=== PATIENT | female | born 1950 | race Caucasian/White ===

== ENCOUNTER 2018-11-21 08:03 | Outpatient (CLI) | payer MEDICARE, MEDICAID, SELFPAY ==
[2018-11-21 08:34] LABS: HGB 13.5 g/dL (12.0-15.5); Mean Corp. HGB Concentration 31.4 g/dL (32.0-36.0); Mean Corpuscular Hemoglobin 28.7 pg (27.0-33.0); Mean Corpuscular Volume 91.5 fL (80-95); Mean Platelet Volume 10.1 fL (8.0-11.0); Platelet Count 279 x1000/uL (130-400); RBC Distribution Width 15.4 % (11.7-14.6); White Blood Cell Count 8.06 k/cumm (4.4-10.8)
[2018-11-21 08:40] LABS: Hemoglobin A1C 6.6 % (4.5-6.2)
[2018-11-21 09:40] LABS: ALT 28 U/L (12-78); AST 21 U/L (15-37); Albumin 3.4 g/dL (3.4-5.0); Alkaline Phosphatase 118 U/L (46-116); BUN 20 mg/dL (7-18); Bilirubin, Total 0.4 mg/dL (0.2-1.0); CREATININE 0.75 mg/dL (0.55-1.02); Calcium 9.3 mg/dL (8.5-10.1); Chloride 105 mmol/L (98-107); Cholesterol 215 mg/dL (50-200); Glucose 106 mg/dL (70-100); HDL Cholesterol 43 mg/dL (40-60); LDL CHOLESTEROL 146 mg/dL (<100); Potassium 4.1 mmol/L (3.5-5.1); Sodium 143 mmol/L (136-145); Total Protein 7.5 g/dL (6.4-8.2); Triglyceride 119 mg/dL (30-150)
== END 2018-11-21 08:23 ==
PROVIDERS: PCP Nurse Practitioner; Visit Provider Nurse Practitioner
DX: E78.5 Hyperlipidemia, unspecified (principal); R73.01 Impaired fasting glucose; F43.20 Adjustment disorder, unspecified
CPT/HCPCS: 36415; 80053; 80061; 83721; 85027; 83036

== ENCOUNTER 2018-11-30 18:47 | Emergency (ER) | payer MEDICARE, MEDICAID, SELFPAY ==
[2018-11-30 18:52] VITALS: BP 157/70; PULSE 88; RESP 16; TEMP 36.1; O2SAT 92
--- NOTE | 2018-11-30 19:16 | ED.GENADUL_ITS ---
Discharge Plan Disposition Patient Disposition: HOME Condition: Stable Discharge Details Chief Complaint: EarProblem Clinical Impression: Otitis media, Otitis externa Primary Care Provider: Faith Fischer ED Provider: Eusebia Rees Home Meds and New Rx's Prescriptions: New Cipro HC 0.2-1 % drops,suspension 3 drp OT Q12H 7 Days Qty: 20 RF: 0 clotrimazole 1 % solution 1 applic TP BID 7 Days Qty: 10 RF: 0 azithromycin [Zithromax] 250 mg tablet 250 mg PO DAILY 3 Days Qty: 3 RF: 0 Continued fluticasone 50 mcg/actuation spray,suspension 2 spray RAYRAY DAILY Qty: 16 RF: 12 diazepam [Valium] 5 MG tablet 2.5 mg PO BID RF: 0 aspirin [Aspir-81] 81 MG tablet,delayed release (DR/EC) 81 mg PO DAILY RF: 0 ibuprofen 200 MG tablet 400 mg PO Q6H PRN Qty: 30 RF: 0 risperidone [Risperdal] 1 MG tablet 1 mg PO BID RF: 0 cholecalciferol (vitamin D3) 1,000 UNIT tablet 1,000 unit PO DAILY Qty: 90 RF: 4 triamcinolone acetonide 15 GM cream 1 jason Topical BID PRNQty: 1 RF: 2 mirtazapine 30 MG tablet 30 mg PO HS RF: 0 sertraline 50 MG tablet 50 mg PO DAILY RF: 0 Atorvastatin Calcium 10 MG tablet 10 mg PO DAILY Qty: 90 RF: 3 nitroglycerin [Nitro-Dur] 1 EACH patch 24 hour 1 patch Transdermal DAILY Qty: 90 RF: 3 Discharge Instructions Instructions: Otitis Externa (ED), Otitis Media (ED) Additional Instructions: Start using the Clotrimazole solution to both ears as directed. Take the Zithromax until finished. If you have no relief or worsening of symptoms, start using the Cipro HC otic drops. Call your primary care doctor tomorrow to schedule follow-up appointment for reevaluation. Return to the emergency department any worsening or new concerning symptoms. Discharge Data Discharge Date/Time-TO BE ENTERED AT DEPARTURE: 11/30/18 19:30 Discharge Physician: Eusebia Rees Medical Decision Making 68-year-old female who presents with itchy rash to bilateral ears x 2 days, and left ear pain x 1 day. Pt has been using triamcinolone for the rash with improvement on the right, but no improvement on the left. Afebrile. Patient appears nontoxic. The rash noted to the bilateral external ears and canals does appear to be scaling with erosions which could be a fungal infection. The right ear canal does not appear to have bacterial infection. The left ear canal pain may be from fungal infection or early bacterial infection. The fluid and edema noted deep within the left ear may be from ear drops or may be an effusion. As patient has worsening pain, will treat for otitis media with Zithromax. Will give a prescription for clotrimazole solution to use as antifungal treatment for the otitis externa. Will also give a prescription for Cipro HC otic drops if no improvement with the antifungal solution. Instructed to call the primary care doctor tomorrow to schedule follow-up appointment for reevaluation and to return at any time with any concerns. HPI General Mode of arrival: ambulatory . Date/Time Provider Initiated Documentation: 11/30/18 18:48 . Limitations to Documentation: no limitations . Information obtained by: patient . HPI Narrative: Pt is a 68-year-old female who presents with itchy rash to b/l ears x 2 days, now with pain in L ear since yesterday. Patient's caregiver states that she has been seen by her primary care doctor before for similar rash and was diagnosed with a fungal ear infection and given triamcinolone in 2017. Caregiver states she has been using the triamcinolone for the past 2 days and notes some improvement in the right ear, but worsening of symptoms in the left ear. She also used analgesic ear drops in the left ear today. She states the left ear canal appears more swollen and red and now with worsening pain within the left ear. Denies fever, sore throat, difficulty breathing. Related Data Home Medications Medication Instructions Recorded Confirmed aspirin [Aspir-81] 81 mg PO DAILY tab 02/28/15 11/30/18 diazepam [Valium] 2.5 mg PO BID tab-cap 02/28/15 11/30/18 ibuprofen 400 mg PO Q6H PRN #30 tab-cap 04/28/15 11/30/18 cholecalciferol (vitamin D3) 1,000 unit PO DAILY #90 tab-cap 09/08/15 11/30/18 risperidone [Risperdal] 1 mg PO BID 09/08/15 11/30/18 triamcinolone acetonide 1 jason TOPICAL BID PRN #1 script 07/05/16 11/30/18 mirtazapine 30 mg PO HS tab-cap 03/27/17 11/30/18 sertraline 50 mg PO DAILY tab-cap 09/24/17 11/30/18 nitroglycerin [Nitro-Dur] 1 patch TRANSDERMAL DAILY #90 patch 03/25/18 11/30/18 fluticasone 50 mcg/actuation nasal 2 spray RAYRAY DAILY #16 gm 08/14/18 11/30/18 spray,suspension azithromycin [Zithromax] 250 mg PO DAILY 3 Days #3 tab 11/30/18 ciprofloxacin-hydrocortisone 3 drp OT Q12H 7 Days #20 ml 11/30/18 [Cipro HC] clotrimazole 1 applic TP BID 7 Days #10 ml 11/30/18 Previous Rx's Medication Instructions Recorded nitroglycerin [Nitro-Dur] 1 patch TRANSDERMAL DAILY #90 patch 03/25/18 fluticasone 50 mcg/actuation nasal 2 spray RAYRAY DAILY #16 gm 08/14/18 spray,suspension azithromycin [Zithromax] 250 mg PO DAILY 3 Days #3 tab 11/30/18 ciprofloxacin-hydrocortisone 3 drp OT Q12H 7 Days #20 ml 11/30/18 [Cipro HC] clotrimazole 1 applic TP BID 7 Days #10 ml 11/30/18 Allergies Allergy/AdvReac Type Severity Reaction Status Date / Time caffeine Allergy Unknown unknown Verified 11/30/18 18:57 Iodinated Contrast- Oral and Allergy Unknown unknown Verified 11/30/18 18:57 IV Dye morphine Allergy Unknown unknown Verified 11/30/18 18:57 Penicillins Allergy Unknown unknown Verified 11/30/18 18:57 pravastatin AdvReac Mild diarrhea Verified 11/30/18 18:57 General Stated Complaint: EarProblem PATEL: 5 Review of Systems Review of Systems All systems reviewed & are unremarkable except as noted in HPI and below Constitutional Reports as per HPI, Denies chills and Denies fever(s) Eyes Denies blurry vision ENT Denies dizziness, Denies ear discharge, Reports otalgia, Denies nasal congestion, Denies nasal discharge, Denies sore throat and Denies throat swelling Cardiovascular Denies chest pain and Denies dyspnea Respiratory Denies dyspnea Gastrointestinal Denies abdominal pain, Denies diarrhea and Denies vomiting Genitourinary Denies hematuria and Denies dysuria Musculoskeletal Denies back pain and Denies numbness Integumentary/Breasts Denies lesions and Denies rash Neurologic Denies dizziness and Denies numbness Allergic/Immunologic Denies throat swelling [facility] Medical History Hyperlipemia (Acute) PTSD (post-traumatic stress disorder) (Acute) Anxiety (Chronic) Migraine (Chronic) Surgical History History of hysterectomy (Chronic) Appendectomy Family History Mother Heart disease Father Heart disease Sister No problems noted. Social History Smoking/Tobacco Use Status: Never alcohol intake: never substance use type: does not use Exam Const General: cooperative, healthy appearing and no acute distress HENMT Head: normal to inspection Ears: hearing grossly normal bilaterally, mastoids normal bilaterally not edematous, nontender and no erythema, EAC abnormal (scalling, erosions, mild edema/erythema, worse on L side), external ear abnormal other (L ear: pain pulling on auricle/palpation of tragus), no periauricular adenopathy and TM abnormal wth effusion serous on the left and with fluid behind the TM on the left General nose exam: external nose normal Face and sinus: normal facial exam Mouth: oral mucosae normal Throat: posterior oropharynx normal Eyes General: appearance normal, both eyes and all related structures Neck Neck: normal visual inspection and no lymphadenopathy Resp Effort & Inspection: normal respiratory effort and able to speak in complete sentences Cardio Rate: regular rate Skin General skin exam: no rashes or lesions noted Neuro General: alert, awake and oriented x3 Motor: muscle tone normal throughout Extrem General: normal to inspection and full ROM Psych Appearance: grossly normal Affect: normal affect Course Vital Signs Temperature 97.0 F L 11/30/18 18:52 Pulse 88 11/30/18 18:52 Respiratory Rate 16 11/30/18 18:52 Blood Pressure 157/70 H 11/30/18 18:52 Pulse Oximetry 92 L 11/30/18 18:52 Temperature 97.0 F L 11/30/18 18:52 Temperature Source Skin 11/30/18 18:52 Pulse 88 11/30/18 18:52 Respiratory Rate 16 11/30/18 18:52 Respiratory Effort Non-Labored 11/30/18 18:52 Blood Pressure 157/70 H 11/30/18 18:52 Pulse Oximetry 92 L 11/30/18 18:52 Pain Level 10 11/30/18 18:59
[2018-11-30] MEDS: Azithromycin 250 MG TAB 500 MG PO (19:17)
[2018-11-30] MEDS: Azithromycin 250 MG TAB PO (19:17)
== END 2018-11-30 19:30 | disposition home or self-care (01) ==
PROVIDERS: Emergency Provider Physician Assistant; PCP Nurse Practitioner
DX: H66.92 Otitis media, unspecified, left ear (principal); H60.392 Other infective otitis externa, left ear; H60.501 Unspecified acute noninfective otitis externa, right ear
CPT/HCPCS: 99283

== ENCOUNTER 2019-02-12 11:49 | Outpatient (REF) | payer MEDICARE, MEDICAID, SELFPAY ==
[2019-02-12 19:18] LABS: COMMENT (LAB VIEW ONLY) 89.55 mg/dL; Microalb ug/mg Crea 12.2 ug/mg Cr
== END 2019-02-12 12:09 ==
LOC: LBN 11:49
PROVIDERS: PCP Nurse Practitioner; Visit Provider Nurse Practitioner
DX: E11.9 Type 2 diabetes mellitus without complications (principal); R82.90 Unspecified abnormal findings in urine
CPT/HCPCS: 87077; 82043; 82570; 87086; 87186

== ENCOUNTER 2019-03-16 14:19 | Outpatient (CLI) | payer MEDICARE, MEDICAID, SELFPAY ==
[2019-03-16 16:09] LABS: Anion Gap 11.1 mmol/L (3-11); BUN 23 mg/dL (7-18); CO2 28.9 mmol/L (21.0-32.0); CREATININE 0.88 mg/dL (0.55-1.02); Calcium 9.9 mg/dL (8.5-10.1); Chloride 103 mmol/L (98-107); Glucose 112 mg/dL (70-100); Potassium 4.2 mmol/L (3.5-5.1); Sodium 143 mmol/L (136-145)
== END 2019-03-16 14:39 ==
PROVIDERS: PCP Nurse Practitioner; Visit Provider Nurse Practitioner
DX: R00.0 Tachycardia, unspecified (principal); K21.9 Gastro-esophageal reflux disease without esophagitis
CPT/HCPCS: 36415; 80048; 84443

== ENCOUNTER 2019-07-27 08:11 | Outpatient (CLI) | payer MEDICARE, MEDICAID, SELFPAY ==
[2019-07-27 08:34] LABS: HCT 41.1 % (36.0-46.0); HGB 12.9 g/dL (12.0-15.5); Mean Corp. HGB Concentration 31.4 g/dL (32.0-36.0); Mean Corpuscular Hemoglobin 28.9 pg (27.0-33.0); Mean Corpuscular Volume 91.9 fL (80-95); Mean Platelet Volume 9.7 fL (8.0-11.0); Platelet Count 332 x1000/uL (130-400); RBC 4.47 m/cumm (4.00-5.20); RBC Distribution Width 15.1 % (11.7-14.6); White Blood Cell Count 8.18 k/cumm (4.4-10.8)
[2019-07-27 08:42] LABS: Hemoglobin A1C 6.6 % (4.5-6.2)
[2019-07-27 09:34] LABS: ALT 47 U/L (14-59); AST 18 U/L (15-37); Albumin 3.5 g/dL (3.4-5.0); Alkaline Phosphatase 119 U/L (46-116); Anion Gap 10.6 mmol/L (3-11); BUN 22 mg/dL (7-18); Bilirubin, Total 0.3 mg/dL (0.2-1.0); CO2 28.4 mmol/L (21.0-32.0); CREATININE 0.83 mg/dL (0.55-1.02); Calcium 9.2 mg/dL (8.5-10.1); Calculated LDL 138 mg/dL; Chloride 104 mmol/L (98-107); Cholesterol 203 mg/dL (50-200); Glucose 110 mg/dL (70-100); HDL Cholesterol 43 mg/dL (40-60); Potassium 4.5 mmol/L (3.5-5.1); Sodium 143 mmol/L (136-145); Total Protein 7.6 g/dL (6.4-8.2); Triglyceride 113 mg/dL (30-150)
== END 2019-07-27 08:31 ==
PROVIDERS: PCP Nurse Practitioner; Visit Provider Nurse Practitioner
DX: E11.9 Type 2 diabetes mellitus without complications (principal); E78.5 Hyperlipidemia, unspecified
CPT/HCPCS: 36415; 80053; 80061; 85027; 83036

== ENCOUNTER 2019-12-22 00:51 | Outpatient (CLI) | payer MEDICARE, MEDICAID, SELFPAY ==
--- NOTE | 2019-12-22 08:57 | DI.RAD_ITS ---
EXAM: XR KNEE LT 3V AP,LAT,HARPER INDICATION: left knee pain, M25.562. COMPARISON: No exams were available for comparison TECHNIQUE: 2D digital imaging was performed. FINDINGS: The joint spaces are well maintained. No joint effusion is seen. There is minimal periarticular spu rring. IMPRESSION: Minimal degenerative changes.
== END 2019-12-22 01:11 ==
PROVIDERS: PCP Nurse Practitioner; Visit Provider Nurse Practitioner
DX: M25.562 Pain in left knee (principal); M17.12 Unilateral primary osteoarthritis, left knee
CPT/HCPCS: 73562

== ENCOUNTER → 2020-01-20 09:38 | Outpatient (BNVA) | payer MEDICARE, MEDICAID, SELFPAY | PROVIDERS: PCP Nurse Practitioner; Referring Provider Nurse Practitioner; Visit Provider Orthopaedic Surgery | DX: M23.92 Unspecified internal derangement of left knee (principal); M25.562 Pain in left knee | CPT/HCPCS: 99211; 99213 ==

== ENCOUNTER 2020-05-25 01:21 | Outpatient (CLI) | payer MEDICARE, MEDICAID, SELFPAY ==
[2020-05-25 09:05] LABS: ALT 24 U/L (14-59); AST 25 U/L (15-37); Albumin 3.9 g/dL (3.4-5.0); Alkaline Phosphatase 107 U/L (46-116); Anion Gap 9.2 mmol/L (3-11); BUN 26 mg/dL (7-18); Bilirubin, Total 0.3 mg/dL (0.2-1.0); CO2 26.8 mmol/L (21.0-32.0); Calcium 9.5 mg/dL (8.5-10.1); Calculated LDL 132 mg/dL (<100); Chloride 107 mmol/L (98-107); Cholesterol 198 mg/dL (<200); Glucose 108 mg/dL (74-106); HDL Cholesterol 44 mg/dL (40-60); Potassium 4.3 mmol/L (3.5-5.1); Sodium 143 mmol/L (136-145); Total Protein 7.5 g/dL (6.4-8.2); Triglyceride 112 mg/dL (<150)
== END 2020-05-25 01:41 ==
PROVIDERS: PCP Nurse Practitioner; Visit Provider Nurse Practitioner
DX: E11.9 Type 2 diabetes mellitus without complications (principal); E78.5 Hyperlipidemia, unspecified
CPT/HCPCS: 36415; 80053; 80061

== ENCOUNTER 2020-12-05 10:14 | Outpatient (REF) | payer MEDICARE, MEDICAID, SELFPAY ==
[2020-12-05 14:50] LABS: COMMENT (LAB VIEW ONLY) 107.47 mg/dL; Microalb ug/mg Crea 18.9 ug/mg Cr
== END 2020-12-05 10:34 ==
LOC: LBN 10:14
PROVIDERS: PCP Nurse Practitioner; Visit Provider Nurse Practitioner
DX: E11.9 Type 2 diabetes mellitus without complications (principal); R82.90 Unspecified abnormal findings in urine
CPT/HCPCS: 87077; 82043; 82570; 87086; 87186

== ENCOUNTER 2021-02-17 17:42 | Inpatient (IN) | payer MEDICARE, MEDICAID, SELFPAY ==
[2021-02-17] VITALS (161 sets, daily range): BP systolic 97–132; BP diastolic 44–70; PULSE 78–96; RESP 14–30; TEMP 36.5; O2SAT 87–98
--- NOTE | 2021-02-17 17:30 | RT.EKG_ITS ---
APPROVED REPORT Exam: Resting ECG Patient Location: E HR:91 bpm ECG Measurements Heart Rate 91 AXIS DE 124 P 58 QRSd 80 QRS 36 QT 356 T 45 QTc 440 Conclusion Sinus rhythm...normal P axis, V-rate 60- 99
--- NOTE | 2021-02-17 18:12 | ED.GENADUL_ITS ---
Discharge Plan Disposition Patient Disposition: [facility] INPATIENT Condition: Serious Discharge Details Clinical Impression: Acute pulmonary embolism, Chest pain, Hypoxia Primary Care Provider: Faith Fischer ED Provider: Khalif Barrios Home Meds and New Rx's Prescriptions: No Action fluticasone propionate 50 mcg/actuation spray,suspension 2 spray RAYRAY DAILY Qty: 16 RF: 12 paliperidone 6 mg tablet extended release 24hr 6 mg PO QAM RF: 0 ibuprofen 600 mg tablet 600 mg PO TID PRN (Reason: pain) Qty: 20 RF: 0 nitrofurantoin monohyd/m-cryst [Macrobid] 100 mg capsule 100 mg PO BID Qty: 10 RF: 0 aspirin [Aspir-81] 81 MG tablet,delayed release (DR/EC) 81 mg PO DAILY RF: 0 cholecalciferol (vitamin D3) 1,000 UNIT tablet 1,000 unit PO DAILY Qty: 90 RF: 4 mirtazapine 30 MG tablet 30 mg PO HS RF: 0 sertraline 50 mg tablet 100 mg PO BID RF: 0 diazepam [Valium] 5 mg tablet 2.5 mg PO BID RF: 0 nitroglycerin [Nitro-Dur] 0.2 mg/hr patch 24 hour 1 patch Transdermal DAILY Qty: 90 RF: 3 risperidone [Risperdal] 1 mg tablet 2 mg PO QHS RF: 0 neomycin-polymyxin B-dexameth [Maxitrol] 3.5 mg/g-10,000 unit/g-0.1 % ointment 1 applic ophthalmic (eye) QID Qty: 3.5 RF: 0 atorvastatin 20 mg tablet 20 mg PO QHS Qty: 90 RF: 3 Medical Decision Making 1850?70-year-old female with history of diabetes type 2, hyperlipidemia, angina, here with chest pressure that started about 11 hours ago and has been constant. Patient is hypoxic saturating in low 90s with faint bilateral rales. She has no cough or fever. No leg swelling or calf tenderness. Consider ACS. Screening ECG was reviewed and interpreted by me: Sinus rhythm 91 bpm, no STEMI, please see report. Patient took aspirin this morning and also placed a nitroglycerin patch which has not improved her symptoms. I will give nitroglycerin sublingual and reassess. Consider acute pulmonary embolism. Patient has no leg swelling or calf tenderness. I will check a D-dimer. Patient has allergic reaction to contrast dye. I will initiate dye allergy prep with Solu-Medrol 125 mg IV at this time so as to not delay imaging should this be necessary. Consider COVID-19. Plan to check stat Covid testing. 1837 --patient was given 2 sublingual nitroglycerin and had significant reduction in pain to now 4/10. Unfortunately developed headache with nitroglycerin and is refusing additional. I will give Tylenol and plan on starting nitroglycerin infusion. 1907 --patient reassessed: Now notes 0/10 pain on nitroglycerin drip. SBP s table 110s. Labs reviewed and D-dimer is significantly elevated. Initial troponin negative. Covid pending. Acute pulmonary embolism remains on differential. Plan to treat with Lovenox 1 mg/kg. Continue prep for CT given contrast allergy 1920??Covid test negative. Chest x-ray interpreted by radiology: No acute findings, mediastinal contours are notable for mildly tortuous aorta.. 115 --patient received full prep for CT contrast. CT contrast was performed and interpreted by radiology: Bilateral small pulmonary emboli. Patient has remained stable here with no chest pain while on nitroglycerin drip for some time at low-dose. We attempted to discontinue the nitroglycerin infusion and she had recurrent chest pain. Nitroglycerin infusion was restarted. I called and spoke with Dr. Nicholas and updated him regarding CT result. He will accept the patient for admission. HPI General Mode of arrival: ambulatory . Date/Time Provider Initiated Documentation: 02/17/21 17:58 . Limitations to Documentation: no limitations . Information obtained by: patient . HPI Narrative: 70-year-old female with history of hyperlipidemia, diabetes type 2, angina, presents to the ED with chief complaint of chest pain. Chest pain started this morning around 7 AM while she was lying at rest in bed. Pain is been constant all day. Pain is severe rated 10/10. She has associated nausea. No vomiting. No abdominal pain. No leg pain or swelling. She does have some mild intermittent shortness of breath. She denies cough or fever. She notes she has received COVID-19 vacc ination with second dose February 03. Related Data Home Medications Medication Instructions Recorded Confirmed aspirin [Aspir-81] 81 mg PO DAILY tab 02/28/15 02/17/21 cholecalciferol (vitamin D3) 1,000 unit PO DAILY #90 tab-cap 09/08/15 02/17/21 mirtazapine 30 mg PO HS tab-cap 03/27/17 02/17/21 fluticasone propionate 50 2 spray RAYRAY DAILY #16 gm 08/14/18 02/17/21 mcg/actuation nasal spray,suspension ibuprofen 600 mg tablet 600 mg PO TID PRN #20 tab 12/22/18 02/17/21 sertraline 50 mg tablet 100 mg PO BID tab-cap 07/16/19 02/17/21 diazepam 5 mg tablet 2.5 mg PO BID tab-cap 01/14/20 02/17/21 paliperidone 6 mg tablet,extended 6 mg PO QAM 01/14/20 02/17/21 release 24 hr nitroglycerin 0.2 mg/hr 1 patch TRANSDERMAL DAILY #90 patch 02/24/20 02/17/21 transdermal 24 hour patch nitrofurantoin 100 mg PO BID #10 cap 12/05/20 02/17/21 monohydrate/macrocrystals 100 mg capsule risperidone 1 mg tablet 2 mg PO QHS tab 12/05/20 02/17/21 neomycin 3.5 mg/g-polymyxin B 1 applic OPHTHALMIC (EYE) QID #3.5 12/19/20 02/17/21 10,000 unit/g-dexameth 0.1 % eye g oint atorvastatin 20 mg tablet 20 mg PO QHS #90 tab 02/13/21 02/17/21 Previous Rx's Medication Instructions Recorded fluticasone propionate 50 2 spray RAYRAY DAILY #16 gm 08/14/18 mcg/actuation nasal spray,suspension ibuprofen 600 mg tablet 600 mg PO TID PRN #20 tab 12/22/18 nitroglycerin 0.2 mg/hr 1 patch TRANSDERMAL DAILY #90 patch 02/24/20 transdermal 24 hour patch nitrofurantoin 100 mg PO BID #10 cap 12/05/20 monohydrate/macrocrystals 100 mg capsule neomycin 3.5 mg/g-polymyxin B 1 applic OPHTHALMIC (EYE) QID #3.5 12/19/20 10,000 unit/g-dexameth 0.1 % eye g oint atorvastatin 20 mg tablet 20 mg PO QHS #90 tab 02/13/21 Allergies Allergy/AdvReac Type Severity Reaction Status Date / Time caffeine Allergy Unknown unknown Verified 02/17/21 17:52 Iodinated Contrast Media Allergy Unknown unknown Verified 02/17/21 17:52 [Iodinated Contrast- Oral and IV Dye] morphine Allergy Unknown unknown Verified 02/17/21 17:52 Penicillins Allergy Unknown unknown Verified 02/17/21 17:52 pravastatin AdvReac Mild diarrhea Verified 02/17/21 17:52 General Stated Complaint: Chest Pain PATEL: 2 Review of Systems All systems reviewed & are unremarkable except as noted in HPI and below Constitutional Constitutional: Denies fever(s) Cardiovascular Cardiovascular: Reports chest pain and Denies leg edema Gastrointestinal Gastrointestinal: Reports nausea PFSH Medical History Anxiety Colon cancer screening declined Colonoscopy refused Hyperlipemia Mammogram declined Migraine PTSD (post-traumatic stress disorder) Surgical History Appendectomy History of hysterectomy Family History Mother Heart disease Father Heart disease CHF Sister No problems noted. 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 Working smoke detector in home: Yes Fire extinguisher in home: Yes Carbon monox detector in home: Yes Firearms in home: No Do you feel safe at home: Yes Do you feel safe in your relationship?: Yes Exam Const General: cooperative and no acute distress HENMT Mouth: moist mucous membranes Eyes Conjunctivae: normal conjunctivae Sclera: normal sclerae Neck Neck: trachea midline and supple Resp Auscultation: rales bilaterally throughout (Mild), no rhonchi and no wheezes Cardio Jugular venous pressure: no JVD Rate: regular rate and not tachycardic Rhythm: regular rhythm GI Palpation: soft, not firm, no guarding, no masses, not rigid and nontender Skin General skin exam: no rashes or lesions noted Neuro General: patient alert, patient awake and tone normal Extrem General: no calf tenderness and no edema Psych Appearance: grossly normal Mental Status: mental status grossly normal Course Vital Signs Vital signs: Vital Signs Temperature 36.5 C 02/17/21 17:50 Pulse 91 H 02/17/21 17:50 Respiratory Rate 18 02/17/21 17:50 Blood Pressure 131/61 02/17/21 17:50 Pulse Oximetry 92 02/17/21 17:50 Temperature 36.5 C 02/17/21 17:50 Temperature Source Temporal Artery Scan 02/17/21 17:50 Pulse 93 H 02/17/21 17:54 Pulse 91 H 02/17/21 17:55 Respiratory Rate 15 02/17/21 17:58 Respiratory Effort Non-Labored 02/17/21 17:58 Respiratory Depth Normal 02/17/21 17:58 Respiratory Pattern Normal 02/17/21 17:58 Blood Pressure 131/61 02/17/21 17:54 Blood Pressure Mean 80 02/17/21 17:54 Blood Pressure Position Sitting 02/17/21 17:50 Pulse Oximetry 92 02/17/21 17:55 Oxygen Delivery Method Room Air 02/17/21 17:50 Oxygen Flow Rate 0 02/17/21 17:50 Pain Level 10 02/17/21 17:53 Critical Care Time Critical Care Time Critical Care Time: Yes Total Critical Care Time: 70 Attestation: I spent greater than 70 minutes addressing this patient's immediate life threats. Please see MDM section of note. This time was spent engaged in work directly related to the patient's care, exclusive of separate procedures, and failure to initiate these interventions would have likely resulted in clinically significant or life threatening deterioration in the patient's condition.
[2021-02-17 18:13] LABS: Abs Immature Grans 0.05 10^3/uL (0.0-0.06); Absolute Basophil Count 0.07 10^3/uL (0.0-0.2); Absolute Eosinophil Count 0.22 10^3/uL (0.0-0.7); Absolute Lymphocyte Count 2.16 10^3/uL (1.2-3.4); Absolute Monocyte Count 0.74 10^3/uL (0.1-0.8); Absolute Neutrophil Count 6.05 10^3/uL (1.2-6.7); Basophils % 0.8; Eosinophils % 2.4; HCT 41.4 % (36.0-46.0); HGB 13.1 g/dL (11.2-15.7); Immature Grans % 0.5; Lymphocytes % 23.3; MCH 29.5 pg (27.0-33.0); MCHC 31.6 % (32.0-36.0); MCV 93.2 fL (80-95); MPV 9.8 fL (8.0-11.0); Nucleated RBC 0 %; Platelet Count 348 10^3/uL (130-400); RBC 4.44 10^6/uL (3.93-5.22); RDW 14.9 % (11.7-14.6); WBC 9.29 10^3/uL (4.4-10.8)
[2021-02-17] MEDS: methylPREDNISolone SUCC 125 MG VIAL IVP (18:21)
[2021-02-17] MEDS: nitroGLYcerin 0.4 MG TAB SL ×2 (18:21→18:26)
--- NOTE | 2021-02-17 18:28 | NUR.NOTE ---
Nursing Note: 1820 Nitro #1 given 08/20 pain mid sternal CP 03/20 pain, Nitro #2 given same c/o pain location 02/18. Reports really bad headache 3rd dose not given, pt refuse.
[2021-02-17 18:34] LABS: ALT 28 U/L (14-59); AST 13 U/L (15-37); Albumin 3.6 g/dL (3.4-5.0); Alkaline Phosphatase 103 U/L (46-116); Anion Gap 8.3 mmol/L (3-11); BUN 20 mg/dL (7-18); Bilirubin, Total 0.3 mg/dL (0.2-1.0); CO2 27.7 mmol/L (21.0-32.0); CREATININE 0.9 mg/dL (0.55-1.02); Calcium 9.3 mg/dL (8.5-10.1); Chloride 105 mmol/L (98-107); Glucose 187 mg/dL (74-106); Potassium 3.9 mmol/L (3.5-5.1); Sodium 141 mmol/L (136-145); Total Protein 7.8 g/dL (6.4-8.2); Troponin I < 0.05 ng/mL (<0.06)
[2021-02-17 18:36] LABS: Source Nasal/Nares
[2021-02-17 18:44] LABS: D-Dimer 1617 ng/mlFEU (<500)
[2021-02-17] MEDS: Acetaminophen 325 MG TAB 650 MG PO (18:50)
--- NOTE | 2021-02-17 18:53 | DI.RAD_ITS ---
EXAM: XR PORTABLE CHEST AP CLINICAL HISTORY: chest pain TECHNIQUE: 2D digital imaging was performed. COMPARISON: CR CHEST 2 VIEWS PA,LAT from 02/11/2014 FINDINGS: MEDIASTINUM: Normal. HEART: Normal. PULMONARY VASCULATURE: Normal. LUNGS: Clear. PLEURAL SPACE: No pleural effusion or pneumothorax. BONE:Within normal limits for the patient's age. OTHER FINDINGS:Normal. IMPRESSION: No acute pulmonary findings. DATA REPOSITORY: RADIATION DOSE DELIVERED:
[2021-02-17] MEDS: Enoxaparin 60 MG/0.6 ML SYR 70 MG SC (19:03)
[2021-02-17 19:15] LABS: COVID-19 PCR Negative (Negative)
--- NOTE | 2021-02-17 19:17 | DI.VRAD_ITS ---
PROCEDURE INFORMATION: Exam: XR Chest Exam date and time: 02/17/2021 6:01 PM Age: 70 years old Clinical indication: Chest pain; Type not specified TECHNIQUE: Imaging protocol: XR of the chest. Views: 1 view. Total images: 1 COMPARISON: No relevant prior studies available. FINDINGS: Lungs: No vascular congestion. No consolidation. Pulmonary kumar: Unremarkable contours. Pleural spaces: No pleural effusion. No pneumothorax. Heart/Mediastinum: Mediastinal contours are notable for mildly tortuous aorta. Bones/joints: Unremarkable. Intraperitoneal space: Visualized upper abdomen is unremarkable. IMPRESSION: No acute findings. Dictated and Authenticated by: Mark Blake MD. Ordering:IVAN Cuadra MD
--- NOTE | 2021-02-17 19:18 | NUR.NOTE ---
Nursing Note: 1845 nitro infusion start with Janes GERONIMO to witness dose.
--- NOTE | 2021-02-17 19:19 | NUR.NOTE ---
Nursing Note: 1902 Magdalena RN witness lovenox dose prior to pt admin See JAN.
[2021-02-17 20:19] LABS: Troponin I < 0.05 ng/mL (<0.06)
[2021-02-17] MEDS: FAMOTIDINE 20 MG/50 ML BAG 200 MG IVPB (21:21)
[2021-02-17] MEDS: diphenhydrAMINE 50 MG/ML VIAL IVP (21:21)
--- NOTE | 2021-02-17 22:26 | NUR.NOTE ---
Nursing Note: CT called for pt ready to go to scan
--- NOTE | 2021-02-17 22:38 | NUR.NOTE ---
Nursing Note: Pt to Ct
--- NOTE | 2021-02-17 22:44 | DI.CT_ITS ---
EXAM: CT CHEST PE CTA CLINICAL HISTORY: chest pain, elevated ddimer. TECHNIQUE: Imaging Protocol: Axial CT angiography was performed with multi-slice acquisition and mu lti-planar and/or 3D reconstructions. CONTRAST MATERIAL: Intravenous: Omnipaque 350 Contrast volume:62 mL COMPARISON: No exams were available for comparison FINDINGS: Tracheobronchial tree: Patent where visualized. Pulmonary parenchyma: No consolidation or dominant measurable mass. There is dependent atelectasis. Pulmonary Arteries: There is a question of a few filling defects seen in the branches of the pulmonar y artery to the right middle lobe and left lower lobe. Mediastinum and Consuelo: No dominant adenopathy or fluid collection. Visualized thyroid gland: Unremarkable. Pleura: No effusion or pneumothorax. Heart: Mild cardiomegaly. Mild coronary artery calcification. No pericardial effusion. No evidence o f right heart strain. Aorta: Thoracic aorta non-dilated. No dissection. Mild atherosclerosis. Upper abdomen: Unremarkable. Soft tissues: Unremarkable. Bones: Normal. IMPRESSION: Findings suggestive of pulmonary emboli. No evidence of right heart strain. RADIATION DOSE DELIVERED: 329.09mGy.cm Total DLP DATA REPOSITORY: All CT scans at this facility are submitted to the National Radiology Data Registry (NRDR) Dose Index Registry (DIR) with the [employer] (A[employer]). RADIATION OPTIMIZATION: All CT scans at this facility use at least one of these dose optimization te chniques: automated exposure control; mA and/or kV adjustment per patient size (includes targeted exa ms where dose is matched to clinical indication); or iterative reconstruction.
[2021-02-17] MEDS: Omnipaque 350 MG/ML 100 ML BTL IJ (23:00)
[2021-02-17] MEDS: Normal Saline - Diluent 50 ML VIAL IV (23:01)
[2021-02-17] MEDS: Normal Saline Flush 10 ML SYR IVP (23:01)
--- NOTE | 2021-02-17 23:40 | DI.VRAD_ITS ---
Addendum created by Mark Blake MD on 02/17/2021 11:40:43 PM EDT: THIS REPORT CONTAINS FINDINGS THAT MAY BE CRITICAL TO PATIENT CARE. The findings were verbally communicated via telephone conference with NICOLASA LUQUE at 11:40 PM EDT on 02/17/2021. The findings were acknowledged and understood. Initial report created on 02/17/2021 11:39:43 PM EDT: PROCEDURE INFORMATION: Exam: CTA Chest With Contrast Exam date and time: 02/17/2021 10:45 PM Age: 70 years old Clinical indication: Other: Chest pain, elevated d dimer; Additional info: Iodinated contrast allergy, PT pre-medicated in er prior to exam TECHNIQUE: Imaging protocol: Computed tomographic angiography of the chest with contrast. 3D rendering (Not supervised by radiologist): MIP and/or 3D reconstructed images were created by the technologist. Total images: 1592 Radiation optimization: All CT scans at this facility use at least one of these dose optimization techniques: automated exposure control; mA and/or kV adjustment per patient size (includes targeted exams where dose is matched to clinical indication); or iterative reconstruction. Contrast material: [id number]; Contrast volume: 62 ml; Contrast route: INTRAVENOUS (IV); COMPARISON: CR XR PORTABLE CHEST AP 02/17/2021 6:50 PM FINDINGS: Pulmonary arteries: There are small filling defects within the right middle lobe pulmonary artery in addition to a couple of bilateral lower lobe basilar segmental pulmonary arterial branches. There is no central filling defect. Aorta: No aortic aneurysm or dissection. Lungs: There is mild emphysematous disease and peripheral reticulation. There is no consolidation or ground-glass disease. Pleural spaces: No pneumothorax. No pleural effusion. Heart: There are no signs of right heart strain. Lymph nodes: No mediastinal, hilar or axillary adenopathy. Bones/joints: No significant bony or joint space abnormality. Soft tissues: Extrathoracic soft tissues are unremarkable. IMPRESSION: Bilateral small pulmonary emboli. Dictated and Authenticated by: Mark Blake MD. Ordering:IVAN Cuadra MD
--- NOTE | 2021-02-17 23:47 | NUR.NOTE ---
Nursing Note: NITRO DRIP STOPPED VIA VIA VERBAL ORDER- DR LUQUE. PT CURRENTLY REPORTS NO CP. PT PLACED ON 2l NC O2 SAT 89% ON 1l
[2021-02-18] VITALS (42 sets, daily range): BP systolic 95–144; BP diastolic 30–75; PULSE 65–120; RESP 15–28; TEMP 35.8–36.3; O2SAT 88–97
--- NOTE | 2021-02-18 | DI.US_ITS ---
EXAM: US EXTREMITY VENOUS BI CLINICAL HISTORY: pulmonary emboli. TECHNIQUE: Bilateral lower extremity venous ultrasound performed using grayscale, color-flow, and sp ectral Doppler analysis. COMPARISON: No exams were available for comparison FINDINGS: The bilateral common femoral, femoral and popliteal veins demonstrate normal compressibility, augment ation, and color Doppler. The posterior tibial veins are patent. The saphenofemoral junctions are unr emarkable. There is no evidence of a Jolley's cyst. The soft tissues are unremarkable. IMPRESSION: Right: Negative for DVT Left: Negative for DVT DATA REPOSITORY:
--- NOTE | 2021-02-18 00:13 | HPE_ITS ---
Date of service: 02/18/21 Time of Service: 00:13 Assessment and Plan Assessment and plan (1) Acute pulmonary embolism: Start date: 02/17/21 Status: Acute Assessment and plan: This is a 70-year-old lady with acute presentation of chest pain and discomfort which did respond to nitroglycerin sublingually and then by infusion with complete resolution of her chest discomfort but was discovered to have bilateral pulmonary emboli which were small. She did have h ypoxemia with her chest discomfort prompting evaluation for pulmonary emboli. She was started on treatment dose of Lovenox and began to have questionable facial droop and slurred speech with CT of the head revealing no bleed or acute processes. She was continued on IV nitroglycerin and transferred to ICU with eventual weaning off nitroglycerin without return of chest discomfort. She had no evidence of bleeding sequelae and her neurological symptoms stabilized or actually appear to be more chronic and intermittent than acute. She has on multiple psychiatric meds and has a flattened affect at baseline. She will continue on Lovenox with conversion to [facility] for outpatient treatment and as available, ultrasound of the lower extremities with venous Dopplers and of the heart with echocardiogram should be accomplished. We should consider further evaluation of her neurological findings if progressive. Patient appears stable on treatment initiated in the ED and as stated now off nitroglycerin infusion. Troponins are being trended. Qualifiers: Acute cor pulmonale presence: without acute cor pulmonale Pulmonary embolism type: other Qualified Code(s): I26.99 - Other pulmonary embolism without acute cor pulmonale (2) Hypoxia: Start date: 02/17/21 Status: Acute Assessment and plan: Associated with pulmonary emboli and stable on oxygen supplementation. There is no evidence of pneumonia or other causes of hypoxemia. Assess for home oxygen prior to discharge if needed. (3) Atypical chest pain: Start date: 02/17/21 Status: Acute Assessment and plan: This appears to be associated with pulmonary emboli and less likely cardiac etiology. Trend troponins and monitor cardiac rhythm while being treated for pulmonary emboli. Echocardiogram should be accomplished either during his hospital stay or in the near future. Patient does carry nitr oglycerin at home in the form of a topical treatment only and did not do well with sublingual nitroglycerin. She states that she does have angina but has not had interventions for evaluation. She has a poor historian. (4) Facial droop: Status: Chronic Assessment and plan: This appears to be a chronic and intermittent problem rather than acute. CT scan was negative but consider MRI of the brain. If progressive symptoms repeat CT to evaluate for bleed with patient on Lovenox. History of Present Illness History of Present Illness Chief Complaint: Chest pain Narrative: This is a 70-year-old female patient who presented to the ED reporting chest pressure and pain 10/10 at home since 7 AM the morning prior to admission. She has a history of hypertension, hyperlipidemia and psychiatric disease including PTSD with anxiety and is chronically on antipsychotics. In the ED she was evaluated with negative troponins and normal EKG, chest x-ray revealed no acute processes but patient was hypoxemic and was placed on supplemental oxygen. Her chest pain was partially relieved with nitroglycerin sublingually but she had a headache and refused further nitroglycerin sublingually. She did have a Transderm Nitropatch on during presentation with no change in her pain but the sublingual nitroglycerin did reduce the pain to 4/10. A nitroglycerin infusion was initiated with pain resolving to 0/10 and no significant headache. Patient does have a history of migraine headaches. Eventually CT of the chest was performed and did reveal bilateral small pulmonary emboli which were acute. This may have been the explanation for her presenting symptoms though her reporting of pain appears to be exaggerated. At the time I saw the patient she was still pain-sridevi e and weaned off the nitroglycerin drip having received therapeutic Lovenox in the ED. There was a question of neurological changes in the ED with negative CT of the head after initiation of Lovenox with no acute bleed. Her symptoms resolved neurologically and may have been more of a chronic appearance of her face. The patient does appear to have a chronic droop of her right eyelid which functions normally intermittently. Patient was comfortable and was having trending troponins now with Lovenox to be continued and converted possibly to outpatient treatment such as Eliquis after further evaluation in the hospital. If possible ultrasounds including echocardiogram and venous Dopplers of the lower extremity should be accomplished during the hospital stay but could be followed up as an outpatient with the patient on adequate anticoagulation. The patient offers no new complaints when I examined and interviewed her. Review of Systems Narrative: 13 point review of systems otherwise unrevealing or stable with ashok roberts being a vague historian. [facility] Medical History Anxiety Colon cancer screening declined Colonoscopy refused Hyperlipemia Mammogram declined Migraine PTSD (post-traumatic stress disorder) Surgical History Appendectomy History of hysterectomy Family History Mother Heart disease Father Heart disease CHF Sister No problems noted. Social History Smoking/Tobacco Use Status: Never Smoking risk assessment performed?: Yes Alcohol Intake: never Drug use: Never Substance use type: does not use Household members: caregiver and other Details: Arlene is caregiver, Arlene's and another client Housing: house What type of physical activity do you participate in: none Seatbelt use: always Drive intox or ride w/intox fuel truck driver: No Working smoke detector in home: Yes Fire extinguisher in home: Yes Carbon monox detector in home: Yes Firearms in home: No Do you feel safe at home: Yes Do you feel safe in your relationship?: Yes Meds Home Medications and Allergies Allergies Allergy/AdvReac Type Severity Reaction Status Date / Time caffeine Allergy Unknown unknown Verified 02/17/21 17:52 Iodinated Contrast Media Allergy Unknown unknown Verified 02/17/21 17:52 [Iodinated Contrast- Oral and IV Dye] morphine Allergy Unknown unknown Verified 02/17/21 17:52 Penicillins Allergy Unknown unknown Verified 02/17/21 17:52 pravastatin AdvReac Mild diarrhea Verified 02/17/21 17:52 Home Medications Medication Instructions Recorded Confirmed Type aspirin [Aspir-81] 81 mg PO DAILY tab 02/28/15 02/17/21 History cholecalciferol (vitamin D3) 1,000 unit PO DAILY #90 tab-cap 09/08/15 02/17/21 History mirtazapine 30 mg PO HS tab-cap 03/27/17 02/17/21 History fluticasone propionate 50 2 spray RAYRAY DAILY #16 gm 08/14/18 02/17/21 Rx mcg/actuation nasal spray,suspension ibuprofen 600 mg tablet 600 mg PO TID PRN #20 tab 12/22/18 02/17/21 Rx sertraline 50 mg tablet 100 mg PO BID tab-cap 07/16/19 02/17/21 History diazepam 5 mg tablet 2.5 mg PO BID tab-cap 01/14/20 02/17/21 History paliperidone 6 mg tablet,extended 6 mg PO QAM 01/14/20 02/17/21 History release 24 hr nitroglycerin 0.2 mg/hr 1 patch TRANSDERMAL DAILY #90 patch 02/24/20 02/17/21 Rx transdermal 24 hour patch nitrofurantoin 100 mg PO BID #10 cap 12/05/20 02/17/21 Rx monohydrate/macrocrystals 100 mg capsule risperidone 1 mg tablet 2 mg PO QHS tab 12/05/20 02/17/21 History neomycin 3.5 mg/g-polymyxin B 1 applic OPHTHALMIC (EYE) QID #3.5 12/19/20 02/17/21 Rx 10,000 unit/g-dexameth 0.1 % eye g oint atorvastatin 20 mg tablet 20 mg PO QHS #90 tab 02/13/21 02/17/21 Rx Exam Narrative Exam Narrative: General: Patient appears older than stated age, flattened affect with fair eye contact, alert and oriented x3 and in no acute distress. HEENT: Normocephalic with short, thinning hair over scalp, eyes with slight drooping of the right upper eyelid which intermittently functions equally with the left upper eyelid during conversation, pupils equal and reactive to light symmetrically with extraocular movement intact and sclera anicteric. Oropharynx with poor dentition having many missing, discolored and carious teeth. Oral mucosa moist. Tongue protrudes in the midline. Neck: Supple without JVD and no auscultated bruits. Back: Kyphotic with no CVA tenderness. Lungs: Clear to auscultation and percussion with no focalizing rales or rhonchi. Breast: Exam deferred. Heart: Regular rate and rhythm with no murmurs or gallops appreciated. Abdomen: Obese contour, soft and nontender to palpation with no palpable hepatosplenomegaly. Genitalia/rectal: Exam deferred. Extremities: Without clubbing, cyanosis or pitting edema. Negative Homans signs bilaterally. Skin: Pale, warm and dry. Neuro: Cranial nerves II through XII grossly intact with patient having normal facial movement with up gazing and wrinkles over the entire forehead, eyes shut tightly without weakness and intermittently right upper eyelid is drooping but not consistently, no nystagmus and normal corners of the mouth with smiling rising equally. Motor without focalizing deficits. No Babinski's. Psych: Patient has flattened affect and poor eye contact with depressed mood but no abnormal thought processes expressed. Remote memory appears to be grossly intact and recent memory appears less intact. Results Imaging Imaging Studies: EXAM: XR PORTABLE CHEST AP CLINICAL HISTORY: chest pain TECHNIQUE: 2D digital imaging was performed. COMPARISON: CR CHEST 2 VIEWS PA,LAT from 02/11/2014 FINDINGS: MEDIASTINUM: Normal. HEART: Normal. PULMONARY VASCULATURE: Normal. LUNGS: Clear. PLEURAL SPACE: No pleural effusion or pneumothorax. BONE:Within normal limits for the patient's age. OTHER FINDINGS:Normal. IMPRESSION: No acute pulmonary findings. EXAM: CT CHEST PE CTA CLINICAL HISTORY: chest pain, elevated ddimer. TECHNIQUE: Imaging Protocol: Axial CT angiography was performed with multi- slice acquisition and multi-planar and/or 3D reconstructions. CONTRAST MATERIAL: Intravenous: Omnipaque 350 Contrast volume:62 mL COMPARISON: No exams were available for comparison FINDINGS: Tracheobronchial tree: Patent where visualized. Pulmonary parenchyma: No consolidation or dominant measurable mass. There is dependent atelectasis. Pulmonary Arteries: There is a question of a few filling defects seen in the branches of the pulmonary artery to the right middle lobe and left lower lobe. Mediastinum and Consuelo: No dominant adenopathy or fluid collection. Visualized thyroid gland: Unremarkable. Pleura: No effusion or pneumothorax. Heart: Mild cardiomegaly. Mild coronary artery calcification. No pericardial effusion. No evidence of right heart strain. Aorta: Thoracic aorta non-dilated. No dissection. Mild atherosclerosis. Upper abdomen: Unremarkable. Soft tissues: Unremarkable. Bones: Normal. IMPRESSION: Findings suggestive of pulmonary emboli. No evidence of right heart strain. Exam: CT Head Without Contrast Exam date and time: 02/18/2021 12:47 AM Age: 70 years old Clinical indication: Speech disturbance; Patient HX: Right sided facial droop and slurred speech x45min ago. Cta pe chest with iv contrast performed 2 hours ago. Contrast allergy, PT was pre-medicated prior to cta pe chest exam, exam completed without incident TECHNIQUE: Imaging protocol: Computed tomography of the head without contrast. Total images: 1011 Radiation optimization: All CT scans at this facility use at least one of these dose optimization techniques: automated exposure control; mA and/or kV adjustment per patient size (includes targeted exams where dose is matched to clinical indication); or iterative reconstruction. Other technique: STROKE PROTOCOL was implemented. COMPARISON: No relevant prior studies available. FINDINGS: Brain: No intra or extra axial bleed. No edema or mass effect. The central rice structures and cortical ribbon are maintained. Cerebral ventricles: No hydrocephalus. Basal cisterns are patent. Bones/joints: No significant bony abnormality. No fracture. Paranasal sinuses: Partially visualized retention cyst in the right maxillary sinus. Mastoid air cells: Mastoid air cells are clear. Orbital cavity: Unremarkable. Soft tissues: Unremarkable. IMPRESSION: No acute intracranial abnormality. Labs Result diagrams: 02/18/21 05:25 02/18/21 05:25 Labs: Laboratory Results - last 24 hr 02/17/21 02/17/21 02/17/21 17:53 17:53 17:53 WBC 9.29 RBC 4.44 Hgb 13.1 Hct 41.4 MCV 93.2 MCH 29.5 MCHC 31.6 L RDW 14.9 H Plt Count 348 MPV 9.8 Immature Gran % 0.5 Neutrophils % 65.0 Lymphocytes % 23.3 Monocytes % 8.0 Eosinophils % 2.4 Basophils % 0.8 Nucleated RBC % 0 Absolute Neutrophils 6.05 Absolute Lymphocytes 2.16 Absolute Monocytes 0.74 Absolute Eosinophils 0.22 Absolute Basophils 0.07 D-Dimer 1617 H Sodium 141 Potassium 3.9 Chloride 105 Carbon Dioxide 27.7 Anion Gap 8.3 BUN 20 H Creatinine 0.9 Estimated GFR/1.73 m2 >= 60.00 Glucose 187 H Calcium 9.3 Total Bilirubin 0.3 AST 13 L ALT 28 Alkaline Phosphatase 103 Troponin I < 0.05 Total Protein 7.8 Albumin 3.6 COVID-19 Source SARS-CoV-2 (PCR) 02/17/21 02/17/21 18:20 19:50 WBC RBC Hgb Hct MCV MCH MCHC RDW Plt Count MPV Immature Gran % Neutrophils % Lymphocytes % Monocytes % Eosinophils % Basophils % Nucleated RBC % Absolute Neutrophils Absolute Lymphocytes Absolute Monocytes Absolute Eosinophils Absolute Basophils D-Dimer Sodium Potassium Chloride Carbon Dioxide Anion Gap BUN Creatinine Estimated GFR/1.73 m2 Glucose Calcium Total Bilirubin AST ALT Alkaline Phosphatase Troponin I < 0.05 Total Protein Albumin COVID-19 Source Nasal/nares SARS-CoV-2 (PCR) Negative Last Vital Signs Temp 36.5 C 02/17/21 17:50 Pulse 83 02/17/21 23:31 Resp 27 H 02/17/21 23:44 BP 115/63 02/17/21 23:31 Pulse Ox 94 02/17/21 23:44 COVID-19 Screening Have you, or household traveled for leisure in last 14 days?: No Had IN PERSON contact w/suspected or confirmed C-19 person: No
--- NOTE | 2021-02-18 00:24 | NUR.NOTE ---
Nursing Note: hAND OFF TO LOIDA GERONIMO AT 0005
[2021-02-18 00:33] LABS: Bilirubin Negative (Negative); Blood Negative (Negative); Clarity Sl Cloudy (Clear); Glucose Negative (Negative); Ketones Negative (Negative); Leukocyte Esterase Small (Negative); Nitrite Positive (Negative); Specific Gravity >= 1.030 (1.005-1.025); Urobilinogen 0.2 EU/dL (Up TO 0.2)
[2021-02-18 00:40] LABS: Bacteria Many HPF (Negative); C & S Indicated? Yes; Casts Negative LPF (Negative); Crystals Negative HPF (Negative); Epithelial Cells Few HPF (Negative); Mucus Negative (Negative); RBC Negative HPF (0-2); WBC >50 HPF (0-5)
--- NOTE | 2021-02-18 00:45 | RT.EKG_ITS ---
APPROVED REPORT Exam: Resting ECG Patient Location: E HR:82 bpm ECG Measurements Heart Rate 82 AXIS HI 140 P 66 QRSd 84 QRS 29 QT 391 T 36 QTc 458 Conclusion Sinus rhythm...normal P axis, V-rate 60- 99 Normal [place] There are no significant changes compared to prior EKG performed on 02/17/2021 at 17:51.
--- NOTE | 2021-02-18 00:56 | DI.CT_ITS ---
EXAM: CT HEAD WO CLINICAL HISTORY: rt facial droop and slurred speech. TECHNIQUE: Imaging Protocol: Axial computed tomography images with coronal and sagittal reformatted images were created and reviewed COMPARISON: No exams were available for comparison FINDINGS: Ventricles and Extra axial spaces: Normal in size and morphology for the patient's age. Hemorrhage: None. Cerebral parenchyma: Normal. No acute territorial infarct is identified. Midline shift: None. Brainstem/Cerebellum: Normal. Calvarium: Normal. Visualized Paranasal sinuses/Mastoids: There is a mucous retention cyst or polyp in the right maxilla ry sinus. The remaining visualized paranasal sinuses and mastoid air cells are clear. Soft Tissues: Unremarkable. IMPRESSION: No acute intracranial process. RADIATION DOSE DELIVERED: 691.34mGy.cm Total DLP DATA REPOSITORY: All CT scans at this facility are submitted to the National Radiology Data Registry (NRDR) Dose Index Registry (DIR) with the [employer] (A[employer]). RADIATION OPTIMIZATION: All CT scans at this facility use at least one of these dose optimization te chniques: automated exposure control; mA and/or kV adjustment per patient size (includes targeted exa ms where dose is matched to clinical indication); or iterative reconstruction.
[2021-02-18 01:09] LABS: Magnesium 2.2 mg/dL (1.8-2.4); TSH (W/Ref FT4) 1.75 uIU/mL (0.36-3.74)
[2021-02-18 01:11] LABS: Troponin I < 0.05 ng/mL (<0.06)
--- NOTE | 2021-02-18 01:15 | DI.VRAD_ITS ---
PROCEDURE INFORMATION: Exam: CT Head Without Contrast Exam date and time: 02/18/2021 12:47 AM Age: 70 years old Clinical indication: Speech disturbance; Patient HX: Right sided facial droop and slurred speech x45min ago. Cta pe chest with iv contrast performed 2 hours ago. Contrast allergy, PT was pre-medicated prior to cta pe chest exam, exam completed without incident TECHNIQUE: Imaging protocol: Computed tomography of the head without contrast. Total images: 1011 Radiation optimization: All CT scans at this facility use at least one of these dose optimization techniques: automated exposure control; mA and/or kV adjustment per patient size (includes targeted exams where dose is matched to clinical indication); or iterative reconstruction. Other technique: STROKE PROTOCOL was implemented. COMPARISON: No relevant prior studies available. FINDINGS: Brain: No intra or extra axial bleed. No edema or mass effect. The central rice structures and cortical ribbon are maintained. Cerebral ventricles: No hydrocephalus. Basal cisterns are patent. Bones/joints: No significant bony abnormality. No fracture. Paranasal sinuses: Partially visualized retention cyst in the right maxillary sinus. Mastoid air cells: Mastoid air cells are clear. Orbital cavity: Unremarkable. Soft tissues: Unremarkable. IMPRESSION: No acute intracranial abnormality. ASSESSMENT: ASPECTS ([place] Stroke Program Early CT Score) is 10. Dictated and Authenticated by: Mark Blake MD. Ordering:IVAN Cuadra MD
[2021-02-18] MEDS: Atorvastatin 20 MG TAB PO ×2 (02:20→21:21)
[2021-02-18] MEDS: risperiDONE 1 MG TAB 2 MG PO ×2 (02:20→21:22)
[2021-02-18 05:30] LABS: Abs Immature Grans 0.02 10^3/uL (0.0-0.06); Absolute Basophil Count 0.03 10^3/uL (0.0-0.2); Absolute Lymphocyte Count 1.23 10^3/uL (1.2-3.4); Absolute Monocyte Count 0.17 10^3/uL (0.1-0.8); Absolute Neutrophil Count 5.52 10^3/uL (1.2-6.7); Basophils % 0.4; HCT 40.2 % (36.0-46.0); HGB 12.8 g/dL (11.2-15.7); Immature Grans % 0.3; Lymphocytes % 17.6; MCH 29.1 pg (27.0-33.0); MCHC 31.8 % (32.0-36.0); MCV 91.4 fL (80-95); MPV 9.7 fL (8.0-11.0); Monocytes % 2.4; Neutrophils % 79.3; Nucleated RBC 0 %; Platelet Count 339 10^3/uL (130-400); RDW 14.6 % (11.7-14.6); RDW-SD 49.9 fL; WBC 6.97 10^3/uL (4.4-10.8)
[2021-02-18 05:50] LABS: ALT 25 U/L (14-59); AST 13 U/L (15-37); Albumin 3.3 g/dL (3.4-5.0); Alkaline Phosphatase 99 U/L (46-116); BUN 15 mg/dL (7-18); Bilirubin, Total 0.3 mg/dL (0.2-1.0); CREATININE 0.7 mg/dL (0.55-1.02); Calcium 9.1 mg/dL (8.5-10.1); Chloride 105 mmol/L (98-107); Glucose 136 mg/dL (74-106); Potassium 4.2 mmol/L (3.5-5.1); Sodium 139 mmol/L (136-145); Total Protein 7.6 g/dL (6.4-8.2)
[2021-02-18 05:52] LABS: Troponin I < 0.05 ng/mL (<0.06)
--- NOTE | 2021-02-18 07:36 | INITIAL_ITS ---
- If Service Date Differs Date of service: 02/18/21 Time of Service: 07:49 Care Management Initial Assess REASON FOR HOSPITALIZATION:: Atypical chest pain, bilat PE PAST MEDICAL HISTORY/PAST SURGICAL HISTORY:: Anxiety. Colon cancer screening declined. Colonoscopy refused. Hyperlipemia. Mammogram declined. Migraine. PTSD (post-traumatic stress disorder). Appendectomy. History of hysterectomy PREVIOUS FUNCTIONAL STATUS/SOCIAL/FAMILY SUPPORTS:: Faith resides in [place], [place] with a caregiver. She has history of anxiety, mental health disorder and requires assistance with ADLs. CURRENT FUNCTIONAL STATUS:: Sitting up in bed, alert and oriented. ADVANCE DIRECTIVES:: AD on file: Shalini Felipe as agent. Has patient been provided with info about the portal/API?: No Did the patient sign up for the portal?: No CODE STATUS:: Full Code INSURANCE COVERAGE / FINANCIAL ISSUES:: LTC Medicaid, MCR CURRENT HOME/COMMUNITY SERVICES/EQUIPMENT:: Home provider; [facility] through [facility] high/[facility]. PRIMARY CARE PHYSICIAN:: Faith Fischer POTENTIAL DISCHARGE NEEDS:: Follow up appointments. PATIENT/FAMILY EDUCATION NEEDS:: Review discharge instructions, discuss Ask Me Three. ANTICIPATED BARRIERS TO DISCHARGE:: None identified. TRANSPORTATION:: Via private vehicle with family or caregiver. PLAN:: Faith will return home when ready per MD. She will follow up with her PCP and plan of care as prescribed. She will resume community based supports and transport home via private vehicle with family or with her caregiver.
[2021-02-18] MEDS: diazePAM 5 MG TAB 2.5 MG PO ×2 (08:09→21:21)
[2021-02-18] MEDS: Sertraline 50 MG TAB 100 MG PO ×2 (08:10→21:21)
[2021-02-18] MEDS: Enoxaparin 80 MG/0.8 ML SYR 70 MG SC (08:10)
[2021-02-18] MEDS: Aspirin E.C. 81 MG TABEC PO (08:10)
[2021-02-18] MEDS: Lidocaine 5% Patch 1 PATCH TP (10:21)
--- NOTE | 2021-02-18 11:05 | DI.VRAD_ITS ---
PROCEDURE INFORMATION: Exam: US Duplex Lower Extremity Veins, Bilateral Exam date and time: 02/18/2021 8:37 AM Age: 70 years old Clinical indication: Other: Pulmonary emboli TECHNIQUE: Imaging protocol: Real-time duplex ultrasound of the extremities with 2-D rice scale, color Doppler flow and spectral waveform analysis with image documentation. Complete exam focused on the bilateral lower extremity veins. COMPARISON: No relevant prior studies available. FINDINGS: Right deep veins: Unremarkable. The common femoral, femoral, proximal profunda femoral and popliteal veins are patent without thrombus. Normal Doppler waveforms. Normal compressibility and/or augmentation response. Right superficial veins: Saphenofemoral junction is patent without thrombus. Left deep veins: Unremarkable. The common femoral, femoral, proximal profunda femoral and popliteal veins are patent without thrombus. Normal Doppler waveforms. Normal compressibility and/or augmentation response. Left superficial veins: Saphenofemoral junction is patent without thrombus. Soft tissues: Unremarkable. IMPRESSION: No evidence of deep vein thrombosis. Dictated and Authenticated by: Rajiv Reynoso MD. Ordering:MASOOD Barnett MD
--- NOTE | 2021-02-18 12:32 | PT.INIE ---
Date of service: 02/18/21 Time of Service: 12:32 PT Notes Visit Reasons: ATYPICAL CHEST PAIN, BILATERAL PULMONARY EMBOLI Physical Therapy Inpatient Initial Evaluation Date: 02/18/2021 Referring Doctor: Anibal Ivey MD PT Orders: PT CONSULT: Eval/treat. Precautions: Fall. Standard. Activity as tolerated. AOC for COVID-19 as of today. Patient Profile/Admitting Diagnosis: Faith is a 70-year-old female who presented to the ED on 02/17/2021 with chest pressure and shortness of breath. She is diagnosed with acute pulmonary embolism, hypoxia, and atypical chest pain. PMHX: Medical History Anxiety Colon cancer screening declined Colonoscopy refused Hyperlipemia Mammogram declined Migraine PTSD (post-traumatic stress disorder) Surgical History Appendectomy History of hysterectomy Social History/Home Situation: Lives with a caregiver couple in a private home with 5-6 steps to enter with rails on both sides. Patient is independent with all mobility ADLs without an assistive ambulatory device. Caregivers provide assistance with medication set up, bathing, and meal preparation. Patient reports no falls in the past 12 months. Equipment Owned/DME: None Subjective: Agreeable to PT consult. Reports no chest pain and headache throughout PT consult however reports fatigue and minimal shortness of breath with minimal activity although oxygen saturation stayed above 93% on room air. Objective: General Observation: Telemetry monitoring in place. Bilateral TEDS on. IV access in right UE. Patient with oxygen supplementation via NC. Mental Status: Alert and oriented as to person, place, time, and purpose. Able to pay attention, focus, and respond appropriately. Pain: 0/10 Vital Signs: Oxygen saturation maintained at above 93% on room air ROM: Right Upper Extremity: Shoulder Flexion allows only up to about 100 degrees. Shoulder abduction allows only up to about 100 degrees. Shoulder ER/IR WFL. Elbow flexion WFL. Forearm pronation/supination WFL. Wrist flexion WFL. Opening and closing of hand WFL. Left Upper Extremity: Shoulder Flexion allows only up to about 100 degrees. Shoulder abduction allows only up to about 100 degrees. Shoulder ER/IR WFL. Elbow flexion WFL. Forearm pronation/supination WFL. Wrist flexion WFL. Opening and closing of hand WFL. Right Lower Extremity: Hip flexion WFL. Hip abduction WFL. Hip ER/IR WFL. Knee flexion WFL. Knee extension. Ankle dorsiflexion/eversion to neutral only. Ankle plantarflexion/inversion WFL. Left Lower Extremity: Hip flexion WFL. Hip abduction WFL. Hip ER/IR WFL. Knee flexion WFL. Knee extension. Ankle dorsiflexion to neutral only. Ankle plantarflexion WFL. Strength: Right Upper Extremity: Shoulder flexors 3-/5. Shoulder abductors 3-/5. Shoulder ER 3+/5/ Shoulder IR 3+/5. Forearm pronators 3+/5. Forearm supinators 3+/5. Elbow flexors 3+/5. Elbow extensors 3+/5. Data Collector strong. Left Upper Extremity: Shoulder flexors 3-/5. Shoulder abductors 3-/5. Shoulder ER 3+/5/ Shoulder IR 3+/5. Forearm pronators 3+/5. Forearm supinators 3+/5. Elbow flexors 3+/5. Elbow extensors 3+/5. Data Collector strong. Right Lower Extremity: Hip flexors 4-/5. Hip abductors 4-/5. Hip external rotators 4-/5. HIp internal rotators 4-/5. Knee flexors 4-/5. Knee extensors 3+/5. Ankle dorsiflexors/evertors 3-/5. Ankle plantarflexors/invertors 4-/5. Left Lower Extremity: Hip flexors 4-/5. Hip abductors 4-/5. Hip external rotators 4-/5. HIp internal rotators 4-/5. Knee flexors 4-/5. Knee extensors 3+/5. Ankle dorsiflexors/evertors 3-/5. Ankle plantarflexors/invertors 4-/5. Sensation: Intact as to pain and light touch sensation in bilateral lower extremities. Bed Mobility/Transfers: Rolling standby assist Supine to sit standby assist with HOB at 45 degrees Sit to stand contact-guard assist Stand to sit contact-guard assist Bed to chair contact-guard assist Gait: Distance of 80 feet feet requiring contact-guard assist. [place] decreased. Step height decreased. Step length decreased. Complained of fatigue requiring 2 standing rests with heart rate increase of 130 bpm and oxygen saturation of above 93% on room air. Denies headache. Denies chest pain. Balance: Static Sitting: Normal normal Dynamic Sitting: Static Standing: Fair Dynamic Standing: Fair Special Tests: Mobility Limitations Standardized Measure [facility] AM-PAC 6 clicks Basic Mobility Inpatient Short Form: Raw Score: 18 CMS Score: 47% deficit Informed Consent/Education: Patient instructed in purpose of PT consult and plan of care. Agreeable to proceed with established PT POC to achieve personal goals. Assessment: Strength symmetric. Facial droop noted on the R side. Faith demonstrates functional mobility decline requiring the use of a front wheel walker for all mobility ADL performance to reduce fatigue and reduce fall risk. Patient presents with clinical signs and symptoms consistent with current/admitting diagnoses that have resulted to mobility limitations, gait instability, generalized weakness, and impairment of motor control as demonstrated by the following impairment level findings: 1. Decreased strength to BUE/LE major muscle groups 2. Impaired standing balance 3. Impaired activity tolerance 4. Fatigue Impairments are contributing to the following functional limitations: 1. Dependent bed mobility skills 2. Increased dependence with transfers 3. Inability to safely ambulate without assistive device and physical assistance 4. Increase completion time for mobility ADL performance 5. Increased fall risk 6. Inability to negotiate steps alone safely 7. Inability to return to prior living environment at this time Patient is assessed as a [id number] complexity based on the following: History: -70 year-old female with past medical history as indicated above Examination: Demonstrable impairment in strength, balance, and mobility level with underlying impairments and functional limitations as exhibited above as well as deficit score of 47% utilizing the [facility] Mobility Inpatient Short Form Presentation: Evolving Decision Makin moderate complexity Goals: Goals X1 week 1. Supine-Sit independent 2. Sit-Supine independent 3. Sit-Stand independent 4. Stand-Sit independent 5. Bed-Chair independent 6. Chair-Bed independent 7. Independent gait on level surface without use of assistive device for at least 300 feet without report of pain nor dyspnea 8. Independent stair negotiation while holding onto B rails for at least 5 steps without report of pain nor dyspnea 9. Good static and dynamic standing balance/tolerance Plan of Care/Treatment Plan: 1-2x/day, 7 days/week x 1 week. Plan of care has been reviewed with the M[employer]IC[employer] LINE OPERATOR providing the service under Physical Therapy direction. Initiate Physical Therapy intervention for strengthening, bed mobility, transfers, gait, stairs, balance training, and use of assistive device. DISCHARGE RECOMMENDATIONS: Patient will benefit from home health PT services in order to progress mobility level using least restrictive assistive ambulatory device, assess home safety, identify additional equipment needs, and establish a functional maintenance program that will increase ability of patient to remain at home. May need the use of a front wheeled walker to minimize fatigue and maximize independence at home. TREATMENT CODE/TIME: 17789 x 30 minutes, 9753 0 x 15 minutes beginning at 12:32 PM. Thank you for the opportunity to participate in the care of this patient. Ct Cowan PT, DPT, CLT [facility] [place], [place]
[2021-02-18] MEDS: Insulin Aspart 300 UNITS/3 ML PEN SC (17:43)
[2021-02-18] MEDS: Apixaban 5 MG TAB 10 MG PO (21:21)
[2021-02-18] MEDS: Mirtazapine 15 MG TAB 30 MG PO (21:21)
[2021-02-18] MEDS: LIDOCAINE Patch Removal 1 EACH TP (21:22)
[2021-02-19] VITALS (22 sets, daily range): BP systolic 97–127; BP diastolic 45–56; PULSE 68–99; RESP 12–28; TEMP 35.7–36.4; O2SAT 86–99
[2021-02-19] MEDS: diazePAM 5 MG TAB 2.5 MG PO ×2 (06:56→20:48)
--- NOTE | 2021-02-19 08:17 | PDOC.CMPRO ---
Care Management Progress Note S/O: Faith remains in the ICU at this time. Her caregiver brought in her home medication as requested. She was evaluated by PT who are recommending home health PT upon discharge. CM continues to follow. A: 70 year old female admitted to [facility] 02/19/21 for atypical chest pain, bilat PE P: Faith will return home when ready per MD. Anticipate she will have new orders for PT through [facility] upon discharge. She will follow up with her PCP and plan of care as prescribed. She will resume community based supports and transport home via private vehicle with family or with her caregiver.
[2021-02-19] MEDS: Aspirin E.C. 81 MG TABEC PO (08:40)
[2021-02-19] MEDS: Apixaban 5 MG TAB 10 MG PO ×2 (08:41→20:48)
[2021-02-19] MEDS: Sertraline 50 MG TAB 100 MG PO ×2 (08:41→20:48)
[2021-02-19] MEDS: Normal Saline Flush 10 ML SYR IVP (08:44)
--- NOTE | 2021-02-19 11:09 | PTTR_ITS ---
PT Notes Visit Reasons: ATYPICAL CHEST PAIN, BILATERAL PULMONARY EMBOLI 02/19/2021 SUBJECTIVE: Faith agreeable to PT treatment. She does not use a walker at home and she thinks it throws her balance off here. She would like to try walking without it today. No complaints of SOB. OBJECTIVE: TRANSFERS Supine to sit: SBA Sit to supine: SBA Scoot: min A x 2 GAIT Device: No AD Weight bearing: Full Assist: CGA Distance: 60'x2 Deviation: Seated rest break VITALS: 88-96% Sao2. Improves with movement and upright positioning. ASSESSMENT: Completes ambulation well without AD but fatigues quickly requiring seated rest break. No LOB without use of walker. PLAN: Continue POC without use of AD. Treatment time: 20' [id number] Kyleigh Mcnamara PTA Clinic location: [facility] [place], [place]
--- NOTE | 2021-02-19 12:54 | W.PM.PROGNOT ---
Date of Service Date of service: 02/19/21 Time of Service: 08:04 Assessment and Plan Assessment and plan (1) Atypical chest pain: Status: Acute Assessment and plan: Appears to be costochondritis. Lidoderm patch initiated yesterday. No pain today with compression of sternum or along cost-chondral margins. (2) Acute pulmonary embolism: Status: Acute Assessment and plan: On Eliquis for AC No clinical evidence of DVT; BLE venous US scheduled for tomorrow. Now with O2 saturations from 92-97% on RA. Echocardiogram tomorrow. Qualifiers: Pulmonary embolism type: other Acute cor pulmonale presence: without acute cor pulmonale Qualified Code(s): I26.99 - Other pulmonary embolism without acute cor pulmonale (3) Facial droop: Status: Chronic Assessment and plan: Ptsosis of R eye lid; mildly improved. Weakness of L perioral muscle; mildly improved. CT head w/o acute process noted. MRI head and neurology consult tomorrow. Subjective Subjective Patient reports: no new complaints, feels better, shortness of breath and afebrile Interval history since last seen: Pt w/o CP. Exam Const General: cooperative and no acute distress Nutritional Appearance: average body habitus Orientation: alert, oriented to person and oriented to place Chest Chest: no tenderness Resp Effort & Inspection: normal respiratory effort Auscultation: clear to auscultation bilaterally Cardio Jugular venous pressure: no JVD Rate: regular rate Rhythm: regular rhythm Heart Sounds: S1 normal and S2 normal GI Palpation: soft and nontender Skin General skin exam: no rashes or lesions noted Extrem General: no pedal edema and no calf tenderness Psych Appearance: grossly normal Affect: normal affect Objective Last Vital Signs Temp 35.7 C L 02/19/21 08:00 Pulse 91 H 02/19/21 11:51 Resp 28 H 02/19/21 11:51 BP 117/51 L 02/19/21 11:51 Pulse Ox 92 02/19/21 10:22
[2021-02-19] MEDS: Docusate Sodium 100 MG CAP PO (17:00)
[2021-02-19] MEDS: Insulin Aspart 300 UNITS/3 ML PEN SC (17:00)
[2021-02-19] MEDS: Polyethylene Glycol 3350 17 GM PACKET PO (17:01)
[2021-02-19] MEDS: Mirtazapine 15 MG TAB 30 MG PO (22:01)
[2021-02-19] MEDS: risperiDONE 1 MG TAB 2 MG PO (22:01)
[2021-02-19] MEDS: Atorvastatin 20 MG TAB PO (22:01)
[2021-02-19] MEDS: LIDOCAINE Patch Removal 1 EACH TP (22:01)
[2021-02-19] MEDS: nitroGLYcerin 0.4 MG TAB SL (23:10)
[2021-02-20] VITALS (35 sets, daily range): BP systolic 99–148; BP diastolic 41–90; PULSE 77–103; RESP 13–32; TEMP 35.9–36.6; O2SAT 90–98
--- NOTE | 2021-02-20 | DI.US_ITS ---
APPROVED REPORT EXAM: Comprehensive 2D, Doppler, and color-flow Echocardiogram Patient Location: In-Patient Room/Bed: [id number] It Programmer: Radha Valdovinos RDCS (AE) Indications: Pulmonary emboli, Chest pain Other Information Study Quality: Adequate Conclusion Technically difficult study Left ventricle is normal and size and wall thickness. Estimated ejection fraction is 55 to 60%. The re are no segmental wall motion abnormalities The right ventricle is grossly normal in size and systolic function Both atria are normal in size There is no hemodynamically significant valvular disease Estimated right ventricular systolic pressure is 31 mmHg Wall motion Left Ventricle The left ventricle is normal size. The left ventricular systolic function is normal. The left ventric ular ejection fraction is within the normal range. There is normal left ventricular wall thickness. T here is normal LV segmental wall motion. There is no ventricular septal defect visualized. LVEF is 58 %. Right Ventricle Right ventricle is grossly normal in size. Right ventricular systolic function is grossly normal. The RVSP is 30.6mmHg. Atria The left atrium size is normal. The right atrium size is normal. The interatrial septum is intact wit h no evidence for an atrial septal defect. Aortic Valve The aortic valve is not well visualized. Aortic valve is probably trileaflet. There is no aortic valv ular stenosis. No aortic regurgitation is present. Trace aortic regurgitation. Mitral Valve The mitral valve is normal in structure. No evidence of mitral valve stenosis. Trace mitral regurgita tion. Tricuspid Valve The tricuspid valve is normal in structure. There is no tricuspid valve stenosis. Trace to mild tricu spid regurgitation. Pulmonic Valve Pulmonic valve is not well visualized. There is no pulmonic valvular stenosis. There is no pulmonic v alvular regurgitation. Great Vessels The aortic root is normal in size. The ascending aorta is normal in size. Aortic arch is not well vis ualized. IVC is normal in size and collapses >50% with inspiration. Pericardium There is no pericardial effusion. 2D Dimensions IVSD d PLAX 0.81 cm F: 0.6-1.0 LV Vol A2C d MOD 71.0 mL LVPW d PLAX 0.82 cm F: 0.6 - 1.0 LV Vol A4C d MOD 66.0 mL LVID d PLAX 4.39 cm F: 3.8 - 5.2 LA vol/ BSA A4C s A-L 10.0 mL/m2 LVDs 3.00 cm F: 2.2 - 3.5 LA Area A4C s MOD 10.03 cm2 Ao Root d 2.34 cm F: 2.7 - 3.3 LV EF A4C MOD 59.4 % RA Area A4C 11.09 cm2 LV EF A2C MOD 56.2 % RA Vol/ BSA A4C s A-L 13.4 mL/m2 LV EF Biplane MOD 58.0 % Ao Asc Diam d 2.57 cm F: 2.3 - 3.1 SV 41.13 mL LV EF Teichholz 58.9 % SV Index 23.72 mL/m2 LVEF (William's) 58.01 % F: 54 - 74 LV Volume 55.90 mL F: 46 - 106 LV Volume Index 3.45 mL/m2 F: 29 - 61 LV Vol Biplane MOD 70.9 mL FS 30.95 % M-Mode TAPSE 2.00 cm (M/F) >1.7 LV Diastology MV E' medial 0.086 (>0.07 m/s) E/A Ratio 0.7 LV E/e MED 7.60 (<14) MV E Vmax 0.65 (0.4-1.3 m/s) MV E' lateral 0.094 (>0.1 m/s) MV A Vmax 0.90 (0.4-1.3 m/s) LV E/e LAT 6.95 (<14) MV E/A Ratio 0.73 MV E/E' medial 7.65 MV E/E' lateral 6.95 Aortic Valve LVOT Area 2.56 cm2 AoV Area Vmax 1.83 cm2 LVOT Vmax 1.03 m/s AoV Area/ BSA (Vmax) 1.06 cm2/m2 LVOT Mean Beto. 0.67 m/s YAO Mean Beto. 1.79 cm2 LVOT Peak Grad 4.3 mmHg YOA Mean Beto. Index 1.03 cm2/m2 LVOT Mean Grad 2.1 mmHg LVOT VTI 0.208 m LVOT Diam s 1.80 cm AoV Vmax 1.44 m/s Velocity Ratio 0.71 AoV Mean Beto. 0.96 m/s AoV Peak Grad 8.3 mmHg LVOT SV 53.22 mL AoV Mean Grad 4.2 mmHg AoV VTI 0.290 m AoV Area VTI 1.84 cm2 AoV Area/ BSA (VTI) 1.06 cm/m2 Mitral Valve MV DT 260 (160-240 msec) MV PHT 75 msec MV Area PHT 2.92 cm2 MV VTI 0.211 m MV Area VTI 2.52 (4.0-6.0 cm2) Pulmonary Valve PV Vmax 1.03 (0.5-1.5 m/s) RVOT Peak Gr. 1.62 mmHg PV Peak Grad 4.2 mmHg RVOT Mean Gr. 0.90 mmHg PV Mean Grad 2.5 mmHg RVOT VTI 0.108 m PV VTI 0.231 m RVOT Vmax 0.64 m/s Tricuspid Valve TR Peak Grad 27.6 mmHg TR Vmax 2.63 m/s RA Pressure 3.00 mmHg RVSP (TR) 30.6 mmHg
[2021-02-20] MEDS: diazePAM 5 MG TAB 2.5 MG PO (06:21)
[2021-02-20] MEDS: Aspirin E.C. 81 MG TABEC PO (07:38)
[2021-02-20] MEDS: Sertraline 50 MG TAB 100 MG PO (07:38)
[2021-02-20] MEDS: Apixaban 5 MG TAB 10 MG PO (07:38)
--- NOTE | 2021-02-20 07:51 | PDOC.CMPRO ---
Care Management Progress Note S/O: Faith remains in the ICU at this time. Her caregiver brought in her home medication as requested. She was evaluated by PT who are recommending home health PT upon discharge. CM continues to follow. A: 70 year old female admitted to [facility] 02/19/21 for atypical chest pain, bilat PE P: Faith will return home when ready per MD. Anticipate she will have new orders for PT through [facility] upon discharge. She will follow up with her PCP and plan of care as prescribed. She will resume community based supports and transport home via private vehicle with family or with her caregiver.
[2021-02-20] MEDS: Lidocaine 5% Patch 1 PATCH TP (11:09)
[2021-02-20] MEDS: LORazepam 2 MG/ML VIAL 0.5 MG IVP (12:00)
[2021-02-20] MEDS: Gadoterate meglumine 20 ML VIAL 13 ML IVP (12:43)
[2021-02-20] MEDS: Normal Saline Flush 10 ML SYR IVP (12:44)
--- NOTE | 2021-02-20 12:45 | DI.MRI_ITS ---
EXAM: MR BRAIN WO/W CLINICAL HISTORY: Ptosis of R eye and L perioral muscle weaness. TECHNIQUE: Multiplanar multisequence MRI of the brain was performed. Both noninfused and contrast i nfused sequences were performed. IV Contrast injected was cc Dotarem. COMPARISON: CT CT HEAD WO from 02/18/2021 FINDINGS: CEREBRAL PARENCHYMA: No evidence of intracranial hemorrhage, mass effect nor shift of midline structu re. No extraaxial fluid collections. Ventricles are not enlarged nor shifted. There is no significant focal signal abnormality in the cerebellar hemispheres nor within the maria elena, m idbrain, and thalami. There are multiple nonspecific foci of white matter signal abnormality in the periventricular white m atter, probably consistent with chronic small vessel disease. These are non in hand sing and nonhemo rrhagic and not associated with abnormal signal on diffusion imaging. There is no abnormal signal wi thin the cerebellar hemispheres nor within the maria elena, midbrain, and thalami. There are no ring enhancing lesions in the brain. There is no abnormal meningeal enhancement. PITUITARY GLAND: No mass nor parasellar abnormality. No obvious abnormality in the cavernous sinuses. FLOW VOIDS: The expected flow void are noted. No evidence of obvious aneurysm nor obvious vascular ma lformation. PARANASAL SINUSES: There is a 1.4x 1.3 cm retention cyst or polyp on the anterior medial wall the rig ht maxillary sinus, not associated with a fluid level within the sinus. No bone dehiscence. Remaind er of the paranasal sinuses are clear, as are the mastoid air cells appear ORBITS: No obvious abnormal findings. IMPRESSION: 1. There are multiple FLAIR bright foci of signal abnormality in the periventricular white matter efren aterally consistent with chronic small vessel disease changes. There is no evidence of acute lacunar nor territorial infarction. Also no evidence of intracranial hemorrhage. 2. No abnormal enhancing intracranial finding. There are no ring enhancing lesions in the brain and there is no abnormal meningeal enhancement, focal nor diffuse. DATA REPOSITORY:
--- NOTE | 2021-02-20 13:15 | PT.INTREAT ---
Date of service: 02/20/21 Time of Service: 10:40 PT Notes Visit Reasons: ATYPICAL CHEST PAIN, BILATERAL PULMONARY EMBOLI Inpatient Physical Therapy Treatment Note [facility] Date: 02/20/2021 PRECAUTIONS: Fall SUBJECTIVE: Faith is pleasant and agreeable to participating in PT. OBJECTIVE: PAIN: No c/o pain BED MOBILITY/TRANSFERS Supine-sit: I with HOB flat Sit-stand: S Stand-sit: S Bed-Chair: SBA GAIT Assistive Device: No AD Weight bearing: Full Assist: SBA Distance: 300' in a.m.; 450' in p.m. Deviation: LOB x2 with self-recovery in a.m. THEREX: Patient was instructed in a LE and UE strengthening program, completed in a seated position, as per flow sheet. STAIRS: Up/down 3x4 and 2x6 using U rail and a step-to pattern with supervision. ASSESSMENT: Patient tolerated session well without complaint. She was able to tolerate a progression in gait distance without assistive device support with SBA. She was also able to tolerate the addition of stair training as well. PLAN: Continue with global strengthening for improved mobility and activity tolerance via PT upon discharge. TREATMENT CODE/TIME: Session 1: 25 minutes; 75125, 02427 (10:40) Session 2: 15 minutes; 02239 (15:02)
--- NOTE | 2021-02-20 15:06 | W.INDIABCONS ---
Date of service: 02/20/21 Time of Service: 15:06 Diabetes Inpatient Consult DESCRIPTION/ASSESSMENT: 70 year female admitted with chest pain and bilateral pulmonary embolism. PMH: diet controlled DM, HTN. BMI wnl Most recent A1C (12/05/20) 5.9% indicating well controlled DM without meds. Lives in assisted living. Currently meeting nutrient and fluid needs by mouth. Not at nutritional risk. Diet education unwarranted at this time. INTERVENTION: Diabetic Diet PLAN: will continue to follow Time Spent in Nutritional Counseling and Treatment: 0
--- NOTE | 2021-02-20 15:24 | PDOC.CMDIS ---
LACE Index Scoring Tool - Questions: Length of Stay (in days): 3 Acuity (Admit via E.D.?): Yes E.D. Visits: 1 - Answers: Total Score: 7 Risk of Readmission: Low Risk Care Management Discharge Reason for Hospitalization: Atypical chest pain, bilat PE Discharge Plan: Faith will return home when ready per MD. She will follow up with her PCP and plan of care as prescribed. She will resume community based supports and transport home via private vehicle with family or with her caregiver. Patient/Family Education Needs: Review discharge instructions, discuss Ask Me Three. Services Needed at Discharge: Homemaking Services ([employer] Caregiver )
--- NOTE | 2021-02-20 16:02 | DSE_ITS ---
Date of service: 02/20/21 Time of Service: 10:02 DS: Diagnosis Discharge Diagnosis (1) Atypical chest pain: Status: Acute (2) Acute pulmonary embolism: Status: Acute (3) Facial droop: Status: Chronic Discharge Plan Disposition Patient Disposition: HOME Condition: Serious Discharge Details Reason For Visit: ATYPICAL CHEST PAIN, BILATERAL PULMONARY EMBOLI Admit Date/Time: 02/17/21 23:51 Admit Provider: Ubaldo Nicholas Attending Provider: Ubaldo Nicholas Primary Care Provider: Faith Fischer Hospital Course Hospital Course: This is a 70-year-old lady with acute presentation of chest pain and discomfort which did respond to nitroglycerin sublingually and then by infusion with complete resolution of her chest discomfort but was discovered to have bilateral pulmonary emboli which were small. She did have hypoxemia with her chest discomfort prompting evaluation for pulmonary emboli. She was started on treatment dose of Lovenox. She was noted to have questionable facial droop of left perioral muscle and ptosis of right upper eyelid. CT of the head revealing no bleed or acute processes. She was continued on IV nitroglycerin and transferred to ICU with eventual weaning off nitroglycerin without return of chest discomfort. She had no evidence of bleeding sequelae and her neurological symptoms stabilized or actually appear to be more chronic and intermittent than acute. Troponins were negative. She has on multiple psychiatric meds and has a flattened affect at baseline. She was converted to Eliquis for anticoagulation. Echocardiogram was unremarkable with an EF of 55-60%. BLE venous dopplers were negative for DVT. MRI of head showed changes consistent with chronic small vessel disease but no acute findings. There was some mild improvement in her left perioral muscle strength. The R eye ptosis appeared to be intermittently mildly better. Her chest pain had a musculoskeletal component and a lidoderm patch was helpful in alleviating her pain. She will continue on Eliquis for 4-6 months and f/u with her PCP in 1-2 weeks. Home Meds and New Rx's Prescriptions: New acetaminophen [Tylenol] 325 mg Tablet 650 mg PO Q4H PRN PRNQty: 0 RF: 0 Eliquis 5 mg Tablet See Rx Instructions .ROUTE .COMPLEX Qty: 43 RF: 0 lidocaine [Lidoderm] 5 % Adhesive Patch,Medicated 1 patch topical Q24H Qty: 15 RF: 0 Continued fluticasone propionate 50 mcg/actuation spray,suspension 2 spray RAYRAY DAILY Qty: 16 RF: 12 paliperidone 6 mg tablet extended release 24hr 6 mg PO QAM RF: 0 aspirin [Aspir-81] 81 MG tablet,delayed release (DR/EC) 81 mg PO DAILY RF: 0 cholecalciferol (vitamin D3) 1,000 UNIT tablet 1,000 unit PO DAILY Qty: 90 RF: 4 mirtazapine 30 MG tablet 30 mg PO HS RF: 0 sertraline 50 mg tablet 100 mg PO BID RF: 0 diazepam [Valium] 5 mg tablet 2.5 mg PO BID RF: 0 risperidone [Risperdal] 1 mg tablet 2 mg PO QHS RF: 0 neomycin-polymyxin B-dexameth [Maxitrol] 3.5 mg/g-10,000 unit/g-0.1 % ointment 1 applic ophthalmic (eye) QID Qty: 3.5 RF: 0 atorvastatin 20 mg tablet 20 mg PO QHS Qty: 90 RF: 3 Discontinued ibuprofen 600 mg tablet 600 mg PO TID PRN (Reason: pain) Qty: 20 RF: 0 nitrofurantoin monohyd/m-cryst [Macrobid] 100 mg capsule 100 mg PO BID Qty: 10 RF: 0 nitroglycerin [Nitro-Dur] 0.2 mg/hr patch 24 hour 1 patch Transdermal DAILY Qty: 90 RF: 3 Discharge Instructions Instructions: Pulmonary Embolism (DC) Activity:: Activity as Tolerated Equipment/Supplies:: No Equipment Needed Diet:: As Tolerated Discharge Orders Discharge Orders: Discharge Order (Routine); Ordered 02/20/21 Ordered By: Anibal Harry DS: Summary Time Spent with Patient providing and/or coordinating discharge services: Greater than 30 minutes Status at Discharge Functional status at discharge: uses cane/walker Overall status at discharge: patient is back to baseline Mental Status: mental status grossly normal Speech and Movement: slowed movement Mood: congruent mood Affect: blunted Exam Const General: cooperative and no acute distress Nutritional Appearance: average body habitus Orientation: alert and oriented x3 Eyes Eyelids: eyelid abnormality right upper eyelid ptosis Sclera: sclerae normal Pupils: PERRL Chest Chest: no tenderness Resp Effort & Inspection: normal respiratory effort Auscultation: clear to auscultation bilaterally Cardio Rate: regular rate Rhythm: regular rhythm Heart Sounds: S1 normal and S2 normal GI Palpation: soft and nontender Neuro General: no focal motor deficits Cranial Nerves: facial strength abnormal (Left perioral weakness; improved.) Extrem General: no pedal edema and no calf tenderness Psych Appearance: grossly normal Mental Status: mental status grossly normal Speech and Movement: slowed movement Mood: congruent mood Affect: blunted DS: Data Vitals/I&O Vitals and I&O: Vital Signs Temperature 36.6 C 02/20/21 15:12 Temperature Source Temporal Artery Scan 02/20/21 15:12 Pulse 97 H 02/20/21 15:01 Pulse 101 H 02/20/21 15:01 Respiratory Rate 29 H 02/20/21 15:01 Respiratory Effort Non-Labored 02/20/21 15:12 Respiratory Depth Normal 02/20/21 15:12 Respiratory Pattern Normal 02/20/21 15:12 Blood Pressure 139/44 L 02/20/21 15:01 Blood Pressure Mean 73 02/20/21 15:01 Blood Pressure Position Supine 02/20/21 07:49 Pulse Oximetry 92 02/20/21 15:01 Oxygen Delivery Method Room Air 02/20/21 15:12 Oxygen Flow Rate 0 02/20/21 15:12 Pain Level 0 02/20/21 15:12 Comment 02/17/21 18:51 Intake & Output 02/19/21 02/20/21 02/20/21 23:59 11:59 23:59 Intake Total 1210 / 1450 360 / 360 Output Total 700 / 1145 850 / 850 Balance 510 / 305 -490 / -490 Weight 65 kg Intake: IV Oral 1200 / 1440 360 / 360 Output: Urine 700 / 1145 850 / 850 Other: Urine Color Yellow Yellow Urine Appearance Clear Cloudy Urine Odor Normal Strong Comment Patient voids in bedside commode. Wearing attends. Patient voids in bedside commode. Wearing attends. Stool Occult Blood Negative Stool Size Large Stool Characteristics Formed Hard Brown Voiding Methods Bedside Commode Bedside Commode [facility] Medical History Anxiety Colon cancer screening declined Colonoscopy refused Hyperlipemia Mammogram declined Migraine PTSD (post-traumatic stress disorder) Surgical History Appendectomy History of hysterectomy Family History Mother Heart disease Father Heart disease CHF Sister No problems noted. Social History Smoking/Tobacco Use Status: Never Smoking risk assessment performed?: Yes Alcohol Intake: never Drug use: Never Substance use type: does not use Household members: caregiver and other Details: Arlene is caregiver, Arlene's and another client Housing: house What type of physical activity do you participate in: none Seatbelt use: always Drive intox or ride w/intox jinriksha driver: No Working smoke detector in home: Yes Fire extinguisher in home: Yes Carbon monox detector in home: Yes Firearms in home: No Do you feel safe at home: Yes Do you feel safe in your relationship?: Yes
--- NOTE | 2021-02-20 18:50 | SP_ITS ---
Date of service: 02/20/21 Time of Service: 13:50 Objective Objective Clinical (Bedside) Swallow Evaluation Speech Language Pathology Subjective: Patient received alert/awake, agreeable to evaluation, able to communicate wants/needs effectively; able to demonstrate comprehension of recommendations for safe p.o. intake while on unit and rationale for reviewed safe swallowing strategies which are also written on white board (patient able to read aloud and demonstrate carryover). Denies chest pain and headache throughout CLIENT ENGAGEMENT SPECIALIST assessment; reports fatigue and minimal shortness of breath during po trials; oxygen saturation stayed between 92-93% on room air however RR ranging from 18- 32 bpm. ASSESSMENT Referring Doctor: Dr. Anibal Harry CLIENT ENGAGEMENT SPECIALIST Orders: manage/follow per spec. / dysphagia Precautions: Fall. Standard. Activity as tolerated. AOC for COVID-19 as of today. Patient Profile/Admitting Diagnosis: Faith is a 70-year-old female who presented to the ED on 02/17/2021 with chest pressure and shortness of breath. She is diagnosed with acute pulmonary embolism, hypoxia, atypical chest pain; chart review also indicates oropharyngeal dysphagia; per current orders, patient is on a heart healthy, pureed solids/mildly thickened liquids diet while on the unit; patient reports eating regular foods while home, and does indicate a history of pharyngeal globus, coughing with po intake in the past, however has noted this happens much more frequently since admission; also indicates that her speech continues to be somewhat different but still ?not that bad?. PMHX: Medical History Anxiety Colon cancer screening declined Colonoscopy refused Hyperlipemia Mammogram declined Migraine PTSD (post-traumatic stress disorder) Surgical History Appendectomy History of hysterectomy MRI of Brain (02/20/21) IMPRESSION: 1. There are multiple FLAIR bright foci of signal abnormality in the periventricular white matter bilaterally consistent with chronic small vessel disease changes. There is no evidence of acute lacunar nor territorial infarction. Also no evidence of intracranial hemorrhage. 2. No abnormal enhancing intracranial finding. There are no ring enhancing lesions in the brain and there is no abnormal meningeal enhancement, focal nor diffuse. Social History/Home Situation: Lives with a caregiver couple in a private home with 5-6 steps to enter with rails on both sides. Patient is independent with all mobility ADLs without an assistive ambulatory device. Caregivers provide assistance with medication set up, bathing, and meal preparation. Patient has reported no falls in the past 12 months. Equipment Owned/DME: None Objective: General Observation: Telemetry monitoring in place. IV access in right UE. Patient on room air during assessment today Predisposing dysphagia risk factors: acute pulmonary embolism, hypoxia, pt reported hx of pharyngeal dysphagia Clinical signs of possible chronic dysphagia: coughing with po intake Precipitating dysphagia risk factors / triggering event: acute pulmonary embolism, hypoxia RR: 18-32 / Oxygen saturation maintained at or above 93% on room air. Per active MD orders, Oxygen to maintain SAO2 above 92%, staff to call Md if more than 4L required unless otherwise specified; for COPD patients call MD if more than 2L required. Cranial nerve exam / Oral Motor: CN V: facial sensation impaired to light touch on R labial protrusion impaired/weak labial coordination/ROM impaired, reduced control over rate of movement per pt report Jaw excursion/lateralization intact mastication likely impaired lingual/labial sensation impaired on R side suspect superior hyoid movement is intact although cannot rule out at bedside CN VII: lateral sulcus residue present on R side anterior spillage present on R side salivation intact CN IX/X: palatal elevation - grossly symmetrical, however view is partially obstructed during exam Vocal Quality - WFL taste - WFL onset of swallow - suspect WFL per pt report, unable to fully assess at bedside pharyngeal residue - likely present per pt report nasopharyngeal regurgitation - denied by patient] CN XII: bolus preparation/manipulation/control - possible impairment AP transit - possible impairment lingual protrusion impaired/weak - no notable deviation lingual coordination/ROM impaired lingual residue present, very mild Dentition/Oral Structures/Hygiene: Natural dentition anterior maxillary and mandibular incisors mostly present maxillary and mandibular premolars mostly present oral hygiene appears poor, patient reports consistent and appropriate oral care regimen at home however verbalizes need for assist with oral care given reduced oral sensation on R side Language: verbal expression/fluency, naming, repetition, and auditory comprehension grossly WFL Hearing: WFL Mental Status: Alert and oriented as to person, place, time, and purpose. Able to pay attention, focus, and respond appropriately. Pain: 0/10 Speech: Mildly dysarthric, however intelligible at conversational level; requires repetition for clarity of message at times Laryngeal function exam: Secretions: WFL Vocal quality: WFL MPT: 5 secs reduced for sex/age S/Z ratio: DNT Pitch range: WFL Cough: (volitional) perceptually WFL PO intake IDDSI 0: Single ice chips via tsp - negative overt s/sx aspiration Via cup (3mL successive) - (+) overt s/sx aspiration Via straw - (+) overt s/sx aspiration Via teaspoon - negative overt s/sx aspiration IDDSI 2: Mildly thickened liquids via cup sip - negative overt s/sx aspiration Deborah Swallow Protocol: Fail; (+) overt s/sx aspiration (delayed TC) IMPRESSIONS: Patient demonstrates likely [id number] oropharyngeal dysphagia as characterized by new onset reduced oral ROM, strength/coordination, reduced sensation on R side (buccal, lingual, labial) and report of oropharyngeal dysphagia history including described pharyngeal globus; patient is currently at moderate-high risk for aspiration-related pulmonary complication and/or airway occlusion especially if mastication ability (ie oral sensation/buccal, lingual, labial strength/coordination/ROM) does not return to baseline on its own, and given need for assist with / poor oral hygiene & presumed reduced immunocompetence; improvements in physical mobility and overall pulmonary function, available caregiver training in risk management likely to further reduce this risk. Further CLIENT ENGAGEMENT SPECIALIST services warranted at this time; CLIENT ENGAGEMENT SPECIALIST to follow while on unit. Recommend patient continues to receive CLIENT ENGAGEMENT SPECIALIST services while on unit given current recommendations for modified diet consistencies and appropriateness for objective imaging (ie VFSE/MBSS or FEES); outpatient CLIENT ENGAGEMENT SPECIALIST consultation and/or CLIENT ENGAGEMENT SPECIALIST HH services are recommended upon discharge to ensure continuity of care. Provided education to patient and Nursing ICU staff re: outcomes from assessment, anatomy/physiology of swallowing mechanism, overt s/sx to monitor for re: potential aspiration of food / liquids, recommendations for improved oral care and need for assist with oral care, relationship between respiratory function changes and deglutition Instrumentation: VFSE/MBSS per scheduling availability Diet Texture Modification(s): IDDSI Level(s) 4-Pureed Solids, 2-Mildly Thick Liquids (no change from admission at this time, will continue to follow/modify diet recommendation as appropriate) When alert/stable, recommend additional ice chip protocol & small sips of water after oral care has been performed Medication Intake: Whole with 4-Pureed or Extremely Thick Liquids and/or as tolerated Alter medications only as advised by MD or Pharmacist RISK MANAGEMENT: Oral hygiene before/after PO intake using friction with toothbrush on all oral structures as tolerated HOB upright as tolerated; upright for all PO intake. Encourage physical mobility as tolerated. Level of Assistance/Supervision: Distant supervision for all PO intake to monitor for overt s/sx aspiration PO intake only when awake/alert, with 02 saturation at 92% or above Strategies/Adaptations/Assistive Equipment: Allow RR recovery prior to subsequent bite/sip, Reduce auditory and/or visual distractions when eating, Provide verbal and/or visual cues to use recommended strategies (written on white board, which patient is able to read and carryover at this time), Small sips and bites when eating, Slow rate of intake, Avoid straws, Alternate intake of liquids and solids Posture/Positioning Needs: Maintain upright position at least 30 minutes after meals Specialist referrals: May consider Neurology consult Ancillary tests: N/A Therapy: CLIENT ENGAGEMENT SPECIALIST to follow while on unit, recommend 3x/week 30-45 minutes or PRN Goal: Patient/caregiver(s) will demonstrate comprehension of risk management strategies as outlined; Patient/caregiver(s) will demonstrate comprehension of rationale for objective imaging of swallowing function given outcomes from assessment today and pending ongoing swallowing treatment/counseling in dysphagia management; Patient will demonstrate negative (-) overt s/sx aspiratio n with IDDSI Levels 4/5/6 solids as appropriate and Level 0 thin liquids with carryover of recommended general safe swallowing strategies until objective swallow imaging can be arranged. PLAN: CLIENT ENGAGEMENT SPECIALIST to follow while on unit. Gin Nazario MA [facility]-CLIENT ENGAGEMENT SPECIALIST [phone] CLIENT ENGAGEMENT SPECIALIST CPT Code: 65165 Clinical Swallowing Evaluation
--- NOTE | 2021-02-21 16:33 | PT.INDS ---
Date of service: 02/21/21 Time of Service: 16:33 PT Notes Visit Reasons: ATYPICAL CHEST PAIN, BILATERAL PULMONARY EMBOLI Physical Therapy Inpatient Discharge Summary Date: 02/21/2021 Dates of service: 02/18/2021 through 02/20/2021 This is a clinical summary of care provided on the duration of dates listed above. No charge was made in the completion of this documentation. Referring Doctor: Anibal Ivey MD PT Orders: PT CONSULT: Eval/treat. Precautions: Fall. Standard. Activity as tolerated. AOC for COVID-19 as of today. Patient Profile/Admitting Diagnosis: Faith is a 70-year-old female who presented to the ED on 02/17/2021 with chest pressure and shortness of breath. She is diagnosed with acute pulmonary embolism, hypoxia, and atypical chest pain. PMHX: Medical History Anxiety Colon cancer screening declined Colonoscopy refused Hyperlipemia Mammogram declined Migraine PTSD (post-traumatic stress disorder) Surgical History Appendectomy History of hysterectomy Social History/Home Situation: Lives with a caregiver couple in a private home with 5-6 steps to enter with rails on both sides. Patient is independent with all mobility ADLs without an assistive ambulatory device. Caregivers provide assistance with medication set up, bathing, and meal preparation. Patient reports no falls in the past 12 months. Equipment Owned/DME: None Subjective: NT. See most recent BILINGUAL ADMINISTRATIVE ASSISTANT notes. Objective: General Observation: NT. See most recent BILINGUAL ADMINISTRATIVE ASSISTANT notes. Mental Status: NT. See most recent BILINGUAL ADMINISTRATIVE ASSISTANT notes. Pain: 0/10 Vital Signs: NT. See most recent BILINGUAL ADMINISTRATIVE ASSISTANT notes. ROM: Right Upper Extremity: Shoulder Flexion allows only up to about 100 degrees. Shoulder abduction allows only up to about 100 degrees. Shoulder ER/IR WFL. Elbow flexion WFL. Forearm pronation/supination WFL. Wrist flexion WFL. Opening and closing of hand WFL. Left Upper Extremity: Shoulder Flexion allows only up to about 100 degrees. Shoulder abduction allows only up to about 100 degrees. Shoulder ER/IR WFL. Elbow flexion WFL. Forearm pronation/supination WFL. Wrist flexion WFL. Opening and closing of hand WFL. Right Lower Extremity: Hip flexion WFL. Hip abduction WFL. Hip ER/IR WFL. Knee flexion WFL. Knee extension. Ankle dorsiflexion/eversion to neutral only. Ankle plantarflexion/inversion WFL. Left Lower Extremity: Hip flexion WFL. Hip abduction WFL. Hip ER/IR WFL. Knee flexion WFL. Knee extension. Ankle dorsiflexion to neutral only. Ankle plantarflexion WFL. Strength: Right Upper Extremity: Shoulder flexors 3-/5. Shoulder abductors 3-/5. Shoulder ER 3+/5/ Shoulder IR 3+/5. Forearm pronators 3+/5. Forearm supinators 3+/5. Elbow flexors 3+/5. Elbow extensors 3+/5. Edge Trimming Machine Operator strong. Left Upper Extremity: Shoulder flexors 3-/5. Shoulder abductors 3-/5. Shoulder ER 3+/5/ Shoulder IR 3+/5. Forearm pronators 3+/5. Forearm supinators 3+/5. Elbow flexors 3+/5. Elbow extensors 3+/5. Edge Trimming Machine Operator strong. Right Lower Extremity: Hip flexors 4-/5. Hip abductors 4-/5. Hip external rotators 4-/5. HIp internal rotators 4-/5. Knee flexors 4-/5. Knee extensors 3+/5. Ankle dorsiflexors/evertors 3-/5. Ankle plantarflexors/invertors 4-/5. Left Lower Extremity: Hip flexors 4-/5. Hip abductors 4-/5. Hip external rotators 4-/5. HIp internal rotators 4-/5. Knee flexors 4-/5. Knee extensors 3+/5. Ankle dorsiflexors/evertors 3-/5. Ankle plantarflexors/invertors 4-/5. Sensation: Intact as to pain and light touch sensation in bilateral lower extremities. Bed Mobility/Transfers: Rolling independent Supine to sit independent Sit to stand supervision Stand to sit supervision Bed to chair standby assist Gait: Distance of up to 450 feet 80 feet feet requiring standby assist with no assistive device needed. Balance: Static Sitting: Normal Dynamic Sitting: Normal Static Standing: Fair Dynamic Standing: Fair Assessment: Strength symmetric. Facial droop noted on the R side. Faith demonstrates functional mobility decline requiring the use of a front wheel walker for all mobility ADL performance to reduce fatigue and reduce fall risk. Patient will benefit from home health PT services in order to progress mobility level using least restrictive assistive ambulatory device, assess home safety, identify additional equipment needs, and establish a functional maintenance program that will increase ability of patient to remain at home. Patient continues to present with clinical signs and symptoms consistent with current/admitting diagnoses that have resulted to mobility limitations, gait instability, generalized weakness, and impairment of motor control as demonstrated by the following impairment level findings: 1. Decreased strength to BUE/LE major muscle groups 2. Impaired standing balance 3. Impaired activity tolerance 4. Fatigue Impairments are continuing to contribute to the following functional limitations: 1. Dependent bed mobility skills 2. Increased dependence with transfers 3. Inability to safely ambulate without assistive device and physical assistance 4. Increase completion time for mobility ADL performance 5. Increased fall risk 6. Inability to negotiate steps alone safely 7. Inability to return to prior living environment at this time Goals: Goals X1 week 1. Supine-Sit independent MET 2. Sit-Supine independent MET 3. Sit-Stand independent NOT MET 4. Stand-Sit independent NOT MET 5. Bed-Chair independent NOT MET 6. Chair-Bed independent NOT MET 7. Independent gait on level surface without use of assistive device for at least 300 feet without report of pain nor dyspnea NOT MET 8. Independent stair negotiation while holding onto B rails for at least 5 steps without report of pain nor dyspnea NOT MET 9. Good static and dynamic standing balance/tolerance NOT MET DISCHARGE RECOMMENDATIONS: Patient will benefit from home health PT services in order to progress mobility level using least restrictive assistive ambulatory device, assess home safety, identify additional equipment needs, and establish a functional maintenance program that will increase ability of patient to remain at home. May need the use of a front wheeled walker to minimize fatigue and maximize independence at home. TREATMENT CODE/TIME: MN Thank you for the opportunity to participate in the care of this patient. Ct Cowan PT, DPT, CLT [facility] [place], [place]
== END 2021-02-20 17:25 | disposition home or self-care (01) | DRG 176 ==
LOC: ER 02-18 00:58 → ICU 02-18 01:37
PROVIDERS: Student in an Organized Health Care Education/Training Program; Admitting Provider Family Medicine; Emergency Provider Emergency Medicine; PCP Nurse Practitioner; Visit Provider Family Medicine
DX: I26.99 Other pulmonary embolism without acute cor pulmonale (principal); R09.02 Hypoxemia; R29.810 Facial weakness; R47.81 Slurred speech; Z79.899 Other long term (current) drug therapy; Z79.01 Long term (current) use of anticoagulants; E78.5 Hyperlipidemia, unspecified; I10 Essential (primary) hypertension; F43.10 Post-traumatic stress disorder, unspecified; F41.9 Anxiety disorder, unspecified; G43.909 Migraine, unspecified, not intractable, without status migrainosus; M94.0 Chondrocostal junction syndrome [Tietze]
CPT/HCPCS: 36415; 70553; 71275; 80053; 87077; 87635; 92610; 93005; 93306; 96365; 96366; 96372; 96375; 97110; 97530; 99223; 99233; 99239; 99291; 70450; 71045; 81003; 81015; 83735; 84443; 84484; 85025; 85379; 87086; 87186; 93010; 93970; J1200; J1650; J2060; J2930; J3490

== ENCOUNTER 2021-03-03 15:26 | Observation (INO) | payer MEDICARE, MEDICAID, SELFPAY ==
[2021-03-03] VITALS (68 sets, daily range): BP systolic 124–162; BP diastolic 49–82; PULSE 69–88; RESP 13–33; TEMP 35.9–36.4; O2SAT 88–97
--- NOTE | 2021-03-03 15:15 | RT.EKG_ITS ---
APPROVED REPORT Exam: Resting ECG Patient Location: E HR:81 bpm ECG Measurements Heart Rate 81 AXIS ID 127 P 68 QRSd 83 QRS 35 QT 386 T 49 QTc 448 Conclusion Sinus rhythm...normal P axis, V-rate 60- 99
--- NOTE | 2021-03-03 15:39 | ED.GENADUL_ITS ---
Discharge Plan Disposition Condition: Stable Discharge Details Chief Complaint: RespSymp Admit Date/Time: 03/03/21 20:10 Admit Provider: Jose White Attending Provider: Jose White Primary Care Provider: Faith Fischer ED Provider: Carlie Howard Home Meds and New Rx's Prescriptions: Continued fluticasone propionate 50 mcg/actuation spray,suspension 2 spray RAYRAY DAILY Qty: 16 RF: 12 paliperidone 6 mg tablet extended release 24hr 6 mg PO QAM RF: 0 aspirin [Aspir-81] 81 MG tablet,delayed release (DR/EC) 81 mg PO DAILY RF: 0 cholecalciferol (vitamin D3) 1,000 UNIT tablet 1,000 unit PO DAILY Qty: 90 RF: 4 mirtazapine 30 MG tablet 30 mg PO HS RF: 0 sertraline 50 mg tablet 100 mg PO BID RF: 0 diazepam [Valium] 5 mg tablet 2.5 mg PO BID RF: 0 risperidone [Risperdal] 1 mg tablet 2 mg PO QHS RF: 0 neomycin-polymyxin B-dexameth [Maxitrol] 3.5 mg/g-10,000 unit/g-0.1 % ointment 1 applic ophthalmic (eye) QID Qty: 3.5 RF: 0 atorvastatin 20 mg tablet 20 mg PO QHS Qty: 90 RF: 3 acetaminophen [Tylenol] 325 mg Tablet 650 mg PO Q4H PRN PRNQty: 0 RF: 0 lidocaine [Lidoderm] 5 % Adhesive Patch,Medicated 1 patch topical Q24H Qty: 15 RF: 0 apixaban 5 mg Tablet 5 mg PO BID RF: 0 Discontinued apixaban 5 mg tablet 5 mg PO DAILY Qty: 90 RF: 1 Discharge Instructions Activity:: Activity as Tolerated Equipment/Supplies:: No Equipment Needed Diet:: As Tolerated Discharge Orders Discharge Orders: Discharge Order (Routine); Ordered 03/04/21 Ordered By: Michelle Bhandari Discharge Data Discharge Date/Time-TO BE ENTERED AT DEPARTURE: 03/03/21 22:00 Medical Decision Making <KALEY Alston - Last Filed: 03/06/21 15:27> Patient is a pleasant 70 year old female presenting today with c/c of CP and SOB. Was seen here on 02/17/21 at which time she had similar symptoms and was dx with PE. Patient has been on Eliquis since. Denies any missed doses. She and her niece report that she had been feeling well with resolution of her symptoms until today after lunch. Patient reports she had turkey sandwich and shortly after began developing symptoms once again. She states they are not as severe as when she was here initially a few weeks ago. She denies radiation of pain. No fevers/chills, no cough. She describes the pain as constant and worsened with exertion. Denies pleuritic pain. Reviewed recent notes from admission On exam, patient appears chronically ill. She does not appear to be in any respiratory distress. She reports 10/10 pain but appears to be resting comfortably. 93% on RA. Lungs are clear. Nomral cardiac exam. Abdomen is benign. Sergei is at bedside, she is very helpful in patients history. She has beenwith patient at recent visits. Concerned for ACS, worsening/enlarging PE, infection vs. other. Pain and history is not consistent with dissection. ECG was reviewed by Dr. Barrios. No acute abnormalities. No evidence of right heart strain. Reviewed records. Patient has on nitro patch. She responded well to nitro drip last time. SL caused severe CONNORS. Will begin drip again to help with CP. Nitro patch was removed by myself. Patient has allergy to iodonated contrast. She did well with pre-treatment last time, will complete this again. Patient will be given steroids now and benadryl 1 hr prior to study. CXR reviewed by radiologist: FINDINGS: The heart is mildly enlarged, unchanged. Leads overlie the chest. The lungs appear clear. No infiltrate, effusion or pneumothorax is seen. IMPRESSION: No acute abnormality. Patient is receiving her nitroglycerin drip. She reports her pain is down to a 7 out of 10. Discussed beginning on heparin drip with patient and family, they are in agreement. Labs reviewed. Initial troponin is <0.05. Discussed labs with patient and family. Her pain is now a 0/10. She states she is getting a CONNORS similar to when she had nitro SLrecently. Will slow down nitro drip. She remains hemodynamically stable. I do not see evidence of massive PE at this time. Will consult with hospitalist regarding admission for recurrent CP. Consulted with Dr. White. We will keep her here until her imaging has been completed. He is in agreement with admission. Repeat troonin remains <0.05. Patient received IV benadryl. She went for imaging and was transferred to med surg unit. <Khalif Barrios MD - Last Filed: 03/03/21 20:26> Patient seen, examined, and discussed with KALEY Howard. I agree with treatment plan as discussed/documented. HPI <KALEY Alston - Last Filed: 03/06/21 15:27> General Mode of arrival: ambulatory . Date/Time Provider Initiated Documentation: 03/03/21 15:31 . Limitations to Documentation: no limitations . Information obtained by: patient, family (sergei Pavon), RN notes reviewed and old records reviewed . History of Present Illness 70 year old F presents to the emergency department with the chief complaint of CP, SOB, described as severe and similar to prior episodes (reports pain is not as severe as when she was admitted recently), with intensity rated at 9. Quality is described as aching, and is localized to the chest. Patient reports no radiation. Patient started experiencing this hour(s) and it has been constant. Immobilization improves symptom(s), Movement worsens symptoms . Patient notes chest pain and shortness of breath; denies cough, diaphoresis, fever/chills, loss of appetite, nausea/vomiting, syncope and weakness. Patient did receive the following treatments prior to arrival, other (patient is on Eliquis) Related Data Home Medications Medication Instructions Recorded Confirmed aspirin [Aspir-81] 81 mg PO DAILY tab 02/28/15 02/17/21 cholecalciferol (vitamin D3) 1,000 unit PO DAILY #90 tab-cap 09/08/15 02/17/21 mirtazapine 30 mg PO HS tab-cap 03/27/17 02/17/21 fluticasone propionate 50 2 spray RAYRAY DAILY #16 gm 08/14/18 02/17/21 mcg/actuation nasal spray,suspension sertraline 50 mg tablet 100 mg PO BID tab-cap 07/16/19 02/17/21 diazepam 5 mg tablet 2.5 mg PO BID tab-cap 01/14/20 02/17/21 paliperidone 6 mg tablet,extended 6 mg PO QAM 01/14/20 02/17/21 release 24 hr risperidone 1 mg tablet 2 mg PO QHS tab 12/05/20 02/17/21 neomycin 3.5 mg/g-polymyxin B 1 applic OPHTHALMIC (EYE) QID #3.5 12/19/20 02/17/21 10,000 unit/g-dexameth 0.1 % eye g oint atorvastatin 20 mg tablet 20 mg PO QHS #90 tab 02/13/21 02/17/21 acetaminophen [Tylenol] 650 mg PO Q4H PRN PRN #0 tab 02/20/21 lidocaine [Lidoderm] 1 patch TOPICAL Q24H #15 ea 02/20/21 apixaban 5 mg PO BID 03/04/21 03/04/21 Previous Rx's Medication Instructions Recorded fluticasone propionate 50 2 spray RAYRAY DAILY #16 gm 08/14/18 mcg/actuation nasal spray,suspension neomycin 3.5 mg/g-polymyxin B 1 applic OPHTHALMIC (EYE) QID #3.5 12/19/20 10,000 unit/g-dexameth 0.1 % eye g oint atorvastatin 20 mg tablet 20 mg PO QHS #90 tab 02/13/21 acetaminophen [Tylenol] 650 mg PO Q4H PRN PRN #0 tab 02/20/21 lidocaine [Lidoderm] 1 patch TOPICAL Q24H #15 ea 02/20/21 Allergies Allergy/AdvReac Type Severity Reaction Status Date / Time caffeine Allergy Unknown unknown Verified 03/03/21 15:57 Iodinated Contrast Media Allergy Unknown unknown Verified 03/03/21 15:57 [Iodinated Contrast- Oral and IV Dye] morphine Allergy Unknown unknown Verified 03/03/21 15:57 Penicillins Allergy Unknown unknown Verified 03/03/21 15:57 pravastatin AdvReac Mild diarrhea Verified 03/03/21 15:57 General Stated Complaint: RespSymp PATEL: 3 Review of Systems <KALEY Alston - Last Filed: 03/06/21 15:27> Constitutional Constitutional: Reports as per HPI, Denies chills, Denies fever(s), Denies headache(s), Denies lethargy and Denies poor appetite Eyes Eyes: Denies change in vision ENT Ears, Nose, Mouth, and Throat: Denies dizziness and Denies headache(s) Cardiovascular Cardiovascular: Reports as per HPI, Denies dyspnea and Reports dyspnea on exertion Respiratory Respiratory: Reports as per HPI, Denies chest congestion, Denies cough, Denies pain on inspiration, Denies pain with cough, Denies dyspnea, Reports dyspnea on exertion and Denies wheezing Gastrointestinal Gastrointestinal: Reports as per HPI, Denies abdominal pain, Denies diarrhea, Denies nausea and Denies vomiting Musculoskeletal Musculoskeletal: Reports as per HPI and Denies back pain Integumentary/Breasts Skin/Breast: Reports as per HPI and Denies rash Neurologic Neurologic: Reports as per HPI, Denies dizziness and Denies headache(s) Allergic/Immunologic Allergic/Immunologic: Denies wheezing PFSH <KALEY Alston - Last Filed: 03/06/21 15:27> Medical History Anxiety Colon cancer screening declined Colonoscopy refused Family history of DVT Family history of stroke Hyperlipemia Mammogram declined Migraine PTSD (post-traumatic stress disorder) Surgical History Appendectomy History of hysterectomy Family History Mother Heart disease Father Heart disease CHF Sister No problems noted. 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 Working smoke detector in home: Yes Fire extinguisher in home: Yes Carbon monox detector in home: Yes Firearms in home: No Do you feel safe at home: Yes Do you feel safe in your relationship?: Yes Exam <KALEY Alston - Last Filed: 03/06/21 15:27> Const General: cooperative, comfortable, no acute distress, well developed, frail appearing and ill appearing chronically Nutritional Appearance: average body habitus and well nourished Orientation: alert, awake and oriented x3 HENMT Head: normal to inspection Ears: hearing grossly normal bilaterally Mouth: moist mucous membranes Chest Chest: normal inspection of the chest, normal palpation of entire chest wall and no crepitus Resp Effort & Inspection: normal respiratory effort, able to speak in complete sentences and no respiratory distress Auscultation: clear to auscultation bilaterally, no rales, no rhonchi and no whe ezes Cardio Rate: regular rate Rhythm: regular rhythm Heart Sounds: S1 normal and S2 normal GI Inspection: normal to inspection, no edema and non-distended Palpation: soft, no hepatosplenomegaly, not firm, no guarding, not rigid and nontender Auscultation: normal bowel sounds Skin General skin exam: no rashes or lesions noted Trauma: no lacerations or abrasions Neuro General: patient alert, patient awake and patient oriented x3 Cognition: normal cognition Speech: speech normal Extrem General: normal to inspection, capillary refill normal, no pedal edema and no calf tenderness Psych Appearance: grossly normal and well kempt Mental Status: mental status grossly normal Speech and Movement: speech and movement normal Course <KALEY Alston - Last Filed: 03/06/21 15:27> Vital Signs Vital signs: Vital Signs Temperature 36.4 C L 03/03/21 15:31 Pulse 84 03/03/21 15:31 Respiratory Rate 18 03/03/21 15:31 Blood Pressure 148/82 H 03/03/21 15:31 Pulse Oximetry 93 03/03/21 15:31 Temperature 36.4 C L 03/03/21 15:31 Temperature Source Temporal Artery Scan 03/03/21 15:31 Pulse 84 03/03/21 15:31 Respiratory Rate 18 03/03/21 15:31 Blood Pressure 148/82 H 03/03/21 15:31 Blood Pressure Position Sitting 03/03/21 15:31 Pulse Oximetry 93 03/03/21 15:31 Oxygen Delivery Method Room Air 03/03/21 15:31 Oxygen Flow Rate 0 03/03/21 15:31
[2021-03-03 16:04] LABS: Abs Immature Grans 0.02 10^3/uL (0.0-0.06); Absolute Basophil Count 0.04 10^3/uL (0.0-0.2); Absolute Eosinophil Count 0.23 10^3/uL (0.0-0.7); Absolute Lymphocyte Count 2.12 10^3/uL (1.2-3.4); Absolute Monocyte Count 0.82 10^3/uL (0.1-0.8); Absolute Neutrophil Count 4.84 10^3/uL (1.2-6.7); Basophils % 0.5; Eosinophils % 2.9; HCT 40.3 % (36.0-46.0); HGB 12.6 g/dL (11.2-15.7); Immature Grans % 0.2; Lymphocytes % 26.3; MCHC 31.3 % (32.0-36.0); MCV 92.6 fL (80-95); MPV 9.7 fL (8.0-11.0); Monocytes % 10.2; Neutrophils % 59.9; Nucleated RBC 0 %; Platelet Count 267 10^3/uL (130-400); RBC 4.35 10^6/uL (3.93-5.22); WBC 8.07 10^3/uL (4.4-10.8)
--- NOTE | 2021-03-03 16:12 | DI.RAD_ITS ---
EXAM: XR PORTABLE CHEST AP CLINICAL HISTORY: increased SOB, CP TECHNIQUE: 2D digital imaging was performed. COMPARISON: CR,XR XR PORTABLE CHEST AP from 02/17/[address] CHEST PE CTA from 02/17/2021 FINDINGS: The heart is mildly enlarged, unchanged. Leads overlie the chest. The lungs appear clear. No infil trate, effusion or pneumothorax is seen. IMPRESSION: No acute abnormality.
[2021-03-03 16:38] LABS: ALT 25 U/L (14-59); AST 16 U/L (15-37); Albumin 3.6 g/dL (3.4-5.0); Alkaline Phosphatase 104 U/L (46-116); BUN 20 mg/dL (7-18); Bilirubin, Total 0.1 mg/dL (0.2-1.0); CREATININE 0.6 mg/dL (0.55-1.02); Calcium 9.5 mg/dL (8.5-10.1); Chloride 107 mmol/L (98-107); Glucose 109 mg/dL (74-106); NT-proBNP 199 pg/mL (<300); Potassium 4.2 mmol/L (3.5-5.1); Sodium 144 mmol/L (136-145); Total Protein 7.2 g/dL (6.4-8.2); Troponin I < 0.05 ng/mL (<0.06)
[2021-03-03] MEDS: methylPREDNISolone SUCC 125 MG VIAL IVP (17:20)
[2021-03-03] MEDS: Heparin 5,000 UNITS/ML VIAL 5000 UNITS (17:31)
[2021-03-03 17:53] LABS: INR 1.1 (0.9-1.1); PTT Activated 24.1 sec (21.0-27.5); Prothrombin Time 11.2 sec (9.3-11.0)
[2021-03-03 18:01] LABS: Source Nasal/Nares
[2021-03-03 19:37] LABS: Troponin I < 0.05 ng/mL (<0.06)
--- NOTE | 2021-03-03 20:17 | W.PM.HP.N ---
Date of service: 03/03/21 Time of Service: 20:17 Assessment and Plan Assessment and plan (1) Chest pain: Status: Acute Assessment and plan: She has had normal electrocardiogram today. She has had 2 - troponin test. Her pain has improved on nitroglycerin but she does have a tender chest wall. She has a history of recent pulmonary embolism and a chest CT is being repeated to see if the clots appeared different than they did on February 17. She will be admitted for observation and repeat troponin. She is getting steroids for pretreatment for her allergic reaction to IV contrast. If her CTA is unchanged he will probably be worth considering stopping her nitro infusion and try her on anti-inflammatory medicines for her chest wall pain. Qualifiers: Chest pain type: unspecified Qualified Code(s): R07.9 - Chest pain, unspecified History of Present Illness History of Present Illness Chief Complaint: Chest pain, dyspnea Narrative: This 70-year-old female is here with her niece who is her guardian also. The patient lives in a family home who are her caregivers. She was hospitalized here on February 17 for about 3 days because of a pulmonary embolism. She had chest pain at that time but negative cardiac evaluation. She was discharged and had a follow-up visit with [facility] internal medicine a few days ago and was feeling fine. Today she developed a pressure type pain in her central chest without radiation. She was sitting in the chair when this happened. She says the pain is worse when she takes a deep breath it is worse when she moves. She reduced her dose of apixaban yesterday as directed. She has had 2 coronavirus vaccines so far. She not been around anyone else been ill nor she been traveling. Today she had some chills and sweats and was short of breath when she went upstairs. She does not note any leg swelling. She has had a headache now which she thinks is due to the nitroglycerin. She states that her mother and another relative have had blood clots. She is scheduled to see a specialist at [facility] to review her family history to determine if she should be on anticoagulants chronically. The patient is on disability due to stable psychiatric illness. She states she has been on nitroglycerin patch for 10 to 15 years but she denies any history of cardiac disease. I do not see nicotine patch on her med list. Her father of heart failure. Review of Systems Narrative: She has had no fever, nausea, vomiting or diarrhea. She occasionally has a loose stool but her niece says this is common. She has had no leg swelling. There has been no urinary or bowel symptoms. She has had no rashes. There has been no leg pain. She has a headache now which she thinks is due to the nitroglycerin. All systems reviewed & are unremarkable except as noted in HPI and below PFSH Medical History Anxiety Colon cancer screening declined Colonoscopy refused Family history of DVT Family history of stroke Hyperlipemia Mammogram declined Migraine PTSD (post-traumatic stress disorder) Surgical History Appendectomy History of hysterectomy Family History Mother Heart disease Father Heart disease CHF Sister No problems noted. 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 Working smoke detector in home: Yes Fire extinguisher in home: Yes Carbon monox detector in home: Yes Firearms in home: No Do you feel safe at home: Yes Do you feel safe in your relationship?: Yes Meds Allergies and Home Medications Allergies Allergy/AdvReac Type Severity Reaction Status Date / Time caffeine Allergy Unknown unknown Verified 03/03/21 15:57 Iodinated Contrast Media Allergy Unknown unknown Verified 03/03/21 15:57 [Iodinated Contrast- Oral and IV Dye] morphine Allergy Unknown unknown Verified 03/03/21 15:57 Penicillins Allergy Unknown unknown Verified 03/03/21 15:57 pravastatin AdvReac Mild diarrhea Verified 03/03/21 15:57 Home Medications Medication Instructions Recorded Confirmed Type aspirin [Aspir-81] 81 mg PO DAILY tab 02/28/15 02/17/21 History cholecalciferol (vitamin D3) 1,000 unit PO DAILY #90 tab-cap 09/08/15 02/17/21 History mirtazapine 30 mg PO HS tab-cap 03/27/17 02/17/21 History fluticasone propionate 50 2 spray RAYRAY DAILY #16 gm 08/14/18 02/17/21 Rx mcg/actuation nasal spray,suspension sertraline 50 mg tablet 100 mg PO BID tab-cap 07/16/19 02/17/21 History diazepam 5 mg tablet 2.5 mg PO BID tab-cap 01/14/20 02/17/21 History paliperidone 6 mg tablet,extended 6 mg PO QAM 01/14/20 02/17/21 History release 24 hr risperidone 1 mg tablet 2 mg PO QHS tab 12/05/20 02/17/21 History neomycin 3.5 mg/g-polymyxin B 1 applic OPHTHALMIC (EYE) QID #3.5 12/19/20 02/17/21 Rx 10,000 unit/g-dexameth 0.1 % eye g oint atorvastatin 20 mg tablet 20 mg PO QHS #90 tab 02/13/21 02/17/21 Rx acetaminophen [Tylenol] 650 mg PO Q4H PRN PRN #0 tab 02/20/21 Rx lidocaine [Lidoderm] 1 patch TOPICAL Q24H #15 ea 02/20/21 Rx apixaban 5 mg tablet 5 mg PO DAILY #90 tab 02/27/21 02/27/21 Rx Exam Const General: cooperative, comfortable, no acute distress and acute distress Nutritional Appearance: average body habitus HENMT Head: normal to inspection Ears: hearing grossly normal bilaterally Neck Neck: normal visual inspection, no lymphadenopathy and no JVD Thyroid: thyroid normal Chest Chest: tenderness (Upper of her chest wall. No visible abnormalities noted.) Resp Effort & Inspection: normal respiratory effort Auscultation: no rales, no rhonchi, no wheezes and no rubs Tactile Fremitus: tactile fremitus absent Cardio Rate: regular rate Rhythm: regular rhythm Heart Sounds: S1 normal, S2 normal, no murmurs and no rubs GI Inspection: normal to inspection Palpation: no hepatosplenomegaly and nontender Skin General skin exam: no rashes or lesions noted Extrem Right lower extremity: no cyanosis and no edema Left lower extremity: no cyanosis and no edema Other: No calf tenderness bilaterally. Results Labs Result diagrams: 03/03/21 15:50 03/03/21 15:50 Labs: Laboratory Results - last 24 hr 03/03/21 03/03/21 03/03/21 15:50 15:50 15:50 WBC 8.07 RBC 4.35 Hgb 12.6 Hct 40.3 MCV 92.6 MCH 29.0 MCHC 31.3 L RDW 15.0 H Plt Count 267 MPV 9.7 Immature Gran % 0.2 Neutrophils % 59.9 Lymphocytes % 26.3 Monocytes % 10.2 Eosinophils % 2.9 Basophils % 0.5 Nucleated RBC % 0 Absolute Neutrophils 4.84 Absolute Lymphocytes 2.12 Absolute Monocytes 0.82 H Absolute Eosinophils 0.23 Absolute Basophils 0.04 PT 11.2 H INR 1.1 APTT 24.1 Sodium 144 Potassium 4.2 Chloride 107 Carbon Dioxide 28.0 Anion Gap 9.0 BUN 20 H Creatinine 0.6 Estimated GFR/1.73 m2 >= 60.00 Glucose 109 H Calcium 9.5 Total Bilirubin 0.1 L AST 16 ALT 25 Alkaline Phosphatase 104 Troponin I < 0.05 NT-Pro-B Natriuret Pep 199 Total Protein 7.2 Albumin 3.6 COVID-19 Source 03/03/21 03/03/21 17:55 19:05 WBC RBC Hgb Hct MCV MCH MCHC RDW Plt Count MPV Immature Gran % Neutrophils % Lymphocytes % Monocytes % Eosinophils % Basophils % Nucleated RBC % Absolute Neutrophils Absolute Lymphocytes Absolute Monocytes Absolute Eosinophils Absolute Basophils PT INR APTT Sodium Potassium Chloride Carbon Dioxide Anion Gap BUN Creatinine Estimated GFR/1.73 m2 Glucose Calcium Total Bilirubin AST ALT Alkaline Phosphatase Troponin I < 0.05 NT-Pro-B Natriuret Pep Total Protein Albumin COVID-19 Source Nasal/nares Last Vital Signs Temp 36.4 C L 03/03/21 15:31 Pulse 75 03/03/21 18:16 Resp 17 03/03/21 18:20 BP 141/55 H 03/03/21 18:16 Pulse Ox 93 03/03/21 18:20 COVID-19 Screening Have you, or household traveled for leisure in last 14 days?: No Had IN PERSON contact w/suspected or confirmed C-19 person: No
--- NOTE | 2021-03-03 20:22 | DI.CT_ITS ---
EXAM: CT CHEST PE CTA CLINICAL HISTORY: CP, SOB, known PE. TECHNIQUE: Imaging Protocol: CT angiography of the chest was performed using pulmonary embolus iman col. Multi planar reconstructions were performed. CONTRAST MATERIAL: Intravenous: 61 mL Visipaque 320 at 4.7 mL/sec. Contrast allergy. Apparently pa tess was premedicated in the emergency room with Solu-Medrol for 4 hours with Benadryl 1 hour prior to this examination COMPARISON: CT CT CHEST PE CTA from 02/17/2021 FINDINGS: CHEST: Images are somewhat degraded by respiratory motion artifact. PULMONARY ARTERIES: There are no obvious intraluminal filling defects to suggest acute pulmonary embo li. LUNGS: There are no prominent infiltrates nor evidence of pulmonary infarction.. Some infiltrate is s een in the left upper lobe both posteriorly and laterally and small subpleural nodular infiltrate in the anterior segment left upper lobe is noted which measures 5 millimeters. There are no significant focal findings in the trachea and mainstem bronchi. MEDIASTINUM: There is no hilar nor mediastinal adenopathy. Visualized thyroid unremarkable. CARDIAC: Mild cardiomegaly. No pericardial effusion.Caliber of the thoracic aorta is within normal l imits. No evidence of aortic dissection. There is no significant shift of the interventricular septu m. PARTIALLY VISUALIZED UPPERMOST ABDOMEN: No obvious findings OSSEOUS: No significant osseous lesions.. IMPRESSION: 1. No evidence of acute pulmonary emboli. No evidence of pulmonary infarction.No pleural effusions. 2. Some infiltrate is noted in the left upper lobe which was not evident on the prior study. Also sm all subpleural nodule left upper lobe noted. No pleural effusions. 3. No intrathoracic adenopathy. No aortic dissection. No pericardial effusion. RADIATION DOSE DELIVERED: 333.28mGy.cm Total DLP DATA REPOSITORY: All CT scans at this facility are submitted to the National Radiology Data Registry (NRDR) Dose Index Registry (DIR) with the [employer] ([employer]). RADIATION OPTIMIZATION: All CT scans at this facility use at least one of these dose optimization te chniques: automated exposure control; mA and/or kV adjustment per patient size (includes targeted exa ms where dose is matched to clinical indication); or iterative reconstruction.
[2021-03-03] MEDS: diphenhydrAMINE 50 MG/ML VIAL IVP (20:28)
[2021-03-03] MEDS: Normal Saline Flush 10 ML SYR IVP (20:29)
--- NOTE | 2021-03-03 21:34 | NUR.NOTE ---
Attempt to give report to ICU, nurse not available at this time.Nursing Note:
--- NOTE | 2021-03-03 22:21 | DI.VRAD_ITS ---
PROCEDURE INFORMATION: Exam: CTA Chest With Contrast Exam date and time: 03/03/2021 9:38 PM Age: 70 years old Clinical indication: Shortness of breath TECHNIQUE: Imaging protocol: Computed tomographic angiography of the chest with contrast. 3D rendering (Not supervised by radiologist): MIP and/or 3D reconstructed images were created by the technologist. Radiation optimization: All CT scans at this facility use at least one of these dose optimization techniques: automated exposure control; mA and/or kV adjustment per patient size (includes targeted exams where dose is matched to clinical indication); or iterative reconstruction. Contrast material: [id number]; Contrast volume: 61 ml; Contrast route: INTRAVENOUS (IV); COMPARISON: CT CHEST PE CTA 02/17/2021 10:37 PM FINDINGS: Pulmonary arteries: No pulmonary emboli. Aorta: No aortic aneurysm. No aortic dissection. Lungs: Bilateral apical fibrotic changes in the lungs. Small area of ground-glass opacity within left upper lobe, not seen on the prior study, may represent an area of airspace disease. Bibasilar linear opacities of atelectasis and/or fibrosis. 9 mm left lower lobe ground-glass density nodule, image 28. Pleural spaces: Unremarkable. No pneumothorax. No pleural effusion. Heart: No cardiomegaly. No pericardial effusion. Lymph nodes: Unremarkable. No enlarged lymph nodes. Bones/joints: Unremarkable. No acute fracture. Soft tissues: Unremarkable. IMPRESSION: No pulmonary emboli. Bilateral changes of fibrosis. Scattered small airspace opacities, cannot rule out infectious/inflammatory etiology. No maricruz consolidations/infiltrates. Dictated and Authenticated by: Ld Ying MD. Ordering:LISSETTE Sexton MD
[2021-03-03 23:14] LABS: COVID-19 PCR Negative (Negative)
[2021-03-03 23:46] LABS: Troponin I < 0.05 ng/mL (<0.06)
[2021-03-04] VITALS (10 sets, daily range): BP systolic 103–125; BP diastolic 48–53; PULSE 62–90; RESP 17–22; TEMP 36; O2SAT 89–97
[2021-03-04] MEDS: risperiDONE 1 MG TAB 2 MG PO (00:05)
[2021-03-04] MEDS: Acetaminophen 325 MG TAB 650 MG PO (00:06)
[2021-03-04] MEDS: Mirtazapine 15 MG TAB 30 MG PO (00:06)
[2021-03-04] MEDS: Atorvastatin 20 MG TAB PO (00:06)
--- NOTE | 2021-03-04 00:42 | NUR.NOTE ---
Nursing Note:Patient's niece Ms Savanah Felipe (on [facility] list) called enquiring about the CT Chest report and was informed by this nurse the report based on the radiology report for the chest CT done.
[2021-03-04] MEDS: diazePAM 5 MG TAB 2.5 MG PO (06:13)
[2021-03-04 07:19] LABS: Abs Immature Grans 0.05 10^3/uL (0.0-0.06); Absolute Basophil Count 0.02 10^3/uL (0.0-0.2); Absolute Lymphocyte Count 1.32 10^3/uL (1.2-3.4); Absolute Monocyte Count 0.46 10^3/uL (0.1-0.8); Absolute Neutrophil Count 7.32 10^3/uL (1.2-6.7); Basophils % 0.2; HCT 39.6 % (36.0-46.0); HGB 12.6 g/dL (11.2-15.7); Immature Grans % 0.5; Lymphocytes % 14.4; MCH 29.4 pg (27.0-33.0); MCHC 31.8 % (32.0-36.0); MCV 92.3 fL (80-95); Neutrophils % 79.9; Nucleated RBC 0 %; Platelet Count 274 10^3/uL (130-400); RBC 4.29 10^6/uL (3.93-5.22); RDW 15.1 % (11.7-14.6); RDW-SD 51.4 fL; WBC 9.17 10^3/uL (4.4-10.8)
[2021-03-04 07:42] LABS: Anion Gap 9.2 mmol/L (3-11); BUN 16 mg/dL (7-18); CO2 26.8 mmol/L (21.0-32.0); CREATININE 0.6 mg/dL (0.55-1.02); Calcium 9.6 mg/dL (8.5-10.1); Chloride 107 mmol/L (98-107); Glucose 105 mg/dL (74-106); Sodium 143 mmol/L (136-145); Troponin I < 0.05 ng/mL (<0.06)
[2021-03-04 07:46] LABS: PTT Activated 77.8 sec (21.0-27.5)
[2021-03-04] MEDS: Fluticasone NASAL SPRAY 16 GM BTL NS (08:02)
[2021-03-04] MEDS: Sertraline 50 MG TAB 100 MG PO (08:02)
[2021-03-04] MEDS: Cholecalciferol (Vitamin D3) 1,000 UNIT TAB 1000 UNITS PO (08:02)
[2021-03-04] MEDS: Aspirin E.C. 81 MG TABEC PO (08:02)
--- NOTE | 2021-03-04 08:28 | W.PM.PROGNOT ---
Subjective Subjective Interval history since last seen: Nitro drip since yesterday evening. Still on heparin drip. No pain this am. Plan to d/c home this afternoon. Objective Last Vital Signs Temp 36 C L 03/04/21 04:00 Pulse 64 03/04/21 06:01 Resp 18 03/04/21 06:01 BP 109/50 L 03/04/21 06:01 Pulse Ox 97 03/04/21 08:25 Laboratory Results - last 24 hr 03/03/21 03/03/21 03/03/21 15:50 15:50 15:50 WBC 8.07 RBC 4.35 Hgb 12.6 Hct 40.3 MCV 92.6 MCH 29.0 MCHC 31.3 L RDW 15.0 H Plt Count 267 MPV 9.7 Immature Gran % 0.2 Neutrophils % 59.9 Lymphocytes % 26.3 Monocytes % 10.2 Eosinophils % 2.9 Basophils % 0.5 Nucleated RBC % 0 Absolute Neutrophils 4.84 Absolute Lymphocytes 2.12 Absolute Monocytes 0.82 H Absolute Eosinophils 0.23 Absolute Basophils 0.04 PT 11.2 H INR 1.1 APTT 24.1 Sodium 144 Potassium 4.2 Chloride 107 Carbon Dioxide 28.0 Anion Gap 9.0 BUN 20 H Creatinine 0.6 Estimated GFR/1.73 m2 >= 60.00 Glucose 109 H Calcium 9.5 Total Bilirubin 0.1 L AST 16 ALT 25 Alkaline Phosphatase 104 Troponin I < 0.05 NT-Pro-B Natriuret Pep 199 Total Protein 7.2 Albumin 3.6 COVID-19 Source SARS-CoV-2 (PCR) 03/03/21 03/03/21 03/03/21 17:55 19:05 23:25 WBC RBC Hgb Hct MCV MCH MCHC RDW Plt Count MPV Immature Gran % Neutrophils % Lymphocytes % Monocytes % Eosinophils % Basophils % Nucleated RBC % Absolute Neutrophils Absolute Lymphocytes Absolute Monocytes Absolute Eosinophils Absolute Basophils PT INR APTT Sodium Potassium Chloride Carbon Dioxide Anion Gap BUN Creatinine Estimated GFR/1.73 m2 Glucose Calcium Total Bilirubin AST ALT Alkaline Phosphatase Troponin I < 0.05 < 0.05 NT-Pro-B Natriuret Pep Total Protein Albumin COVID-19 Source Nasal/nares SARS-CoV-2 (PCR) Negative 03/03/21 03/04/21 03/04/21 23:25 07:00 07:00 WBC 9.17 RBC 4.29 Hgb 12.6 Hct 39.6 MCV 92.3 MCH 29.4 MCHC 31.8 L RDW 15.1 H Plt Count 274 MPV 10.0 Immature Gran % 0.5 Neutrophils % 79.9 Lymphocytes % 14.4 Monocytes % 5.0 Eosinophils % 0.0 Basophils % 0.2 Nucleated RBC % 0 Absolute Neutrophils 7.32 H Absolute Lymphocytes 1.32 Absolute Monocytes 0.46 Absolute Eosinophils 0.00 Absolute Basophils 0.02 PT INR APTT 110.0 H* D Sodium 143 Potassium 4.0 Chloride 107 Carbon Dioxide 26.8 Anion Gap 9.2 BUN 16 Creatinine 0.6 Estimated GFR/1.73 m2 >= 60.00 Glucose 105 Calcium 9.6 Total Bilirubin AST ALT Alkaline Phosphatase Troponin I < 0.05 NT-Pro-B Natriuret Pep Total Protein Albumin COVID-19 Source SARS-CoV-2 (PCR) 03/04/21 07:00 WBC RBC Hgb Hct MCV MCH MCHC RDW Plt Count MPV Immature Gran % Neutrophils % Lymphocytes % Monocytes % Eosinophils % Basophils % Nucleated RBC % Absolute Neutrophils Absolute Lymphocytes Absolute Monocytes Absolute Eosinophils Absolute Basophils PT INR APTT 77.8 H D Sodium Potassium Chloride Carbon Dioxide Anion Gap BUN Creatinine Estimated GFR/1.73 m2 Glucose Calcium Total Bilirubin AST ALT Alkaline Phosphatase Troponin I NT-Pro-B Natriuret Pep Total Protein Albumin COVID-19 Source SARS-CoV-2 (PCR)
--- NOTE | 2021-03-04 10:09 | PDOC.CMIN ---
- If Service Date Differs Date of service: 03/04/21 Time of Service: 10:09 Care Management Initial Assess REASON FOR HOSPITALIZATION:: Chest Pain PAST MEDICAL HISTORY/PAST SURGICAL HISTORY:: Medical History. Anxiety. Colon cancer screening declined. Colonoscopy refused. Family history of DVT. Family history of stroke. Hyperlipemia. Mammogram declined. Migraine. PTSD (post-traumatic stress disorder). Surgical History. Appendectomy. History of hysterectomy PREVIOUS FUNCTIONAL STATUS/SOCIAL/FAMILY SUPPORTS:: Faith resides in [place], [place] with a caregiver, Arlene. She has history of anxiety, mental health disorder and requires assistance with ADLs. CURRENT FUNCTIONAL STATUS:: Faith was sitting up in bed when CM met with her. She reported that she is feeling much better than she did yesterday. Per MD, she will likely be discharged home this afternoon with a different dose of Eliquis. She was prescribed Eliquis on her last admission, but the provider would like the dose to change. CM has called and left a voicemail for Arlene, her caregiver, to inquire about medication at home, as well as to inform of her potential discharge. CM will continue to follow. ADVANCE DIRECTIVES:: On file. Shalini Felipe listed as agent. Has patient been provided with info about the portal/API?: Yes Did the patient sign up for the portal?: No CODE STATUS:: Full Code INSURANCE COVERAGE / FINANCIAL ISSUES:: [facility]/ [facility] CURRENT HOME/COMMUNITY SERVICES/EQUIPMENT:: Faith lives in an [facility] home, which provides her care and assistance with ADL's. PRIMARY CARE PHYSICIAN:: Faith Fischer POTENTIAL DISCHARGE NEEDS:: Follow up appointments. PATIENT/FAMILY EDUCATION NEEDS:: Review discharge instructions regarding activity levels and medications with pt and caregiver, discussion of self care needs and goals of care. ANTICIPATED BARRIERS TO DISCHARGE:: None identified. TRANSPORTATION:: Via private vehicle by caregivers PLAN:: Anticipate Faith will return to her [facility] home with caregivers once she is medically cleared. She will be driven home via private vehicle by her caregiver or family. She will follow up with her PCP and discharge plan of care. CM will continue to follow.
[2021-03-04] MEDS: Apixaban 5 MG TAB PO ×2 (11:00→11:37)
--- NOTE | 2021-03-04 11:36 | W.PM.DS.N ---
Date of service: 03/04/21 Time of Service: 11:36 DS: Diagnosis Discharge Diagnosis (1) Non-cardiac chest pain: Status: Resolved (2) Pulmonary embolism: Status: Chronic (3) Diabetes type 2, controlled: Status: Chronic (4) COVID-19 ruled out by laboratory testing: Status: Ruled-out Discharge Plan Disposition Patient Disposition: HOME Condition: Stable Discharge Details Reason For Visit: CHEST PAIN Admit Date/Time: 03/03/21 20:10 Admit Provider: Jose White Attending Provider: Jose White Primary Care Provider: Faith Fischer Hospital Course Hospital Course: Ms Roa is a 70 year old female with PMHx of recently diagnosed PE (02/17/21), discharged home on eliquis at that time, as well as chest pain in context of that PE which was responsive to nitroglycerin, T2DM, hyperlipidemia, who was observed on [facility] hospitalist service from 03/03/21 until 03/04/21 for chest pain. Chest pain was pleuritic and reproducible with palpation. She ruled out for ACS with negative troponins/EKG and no arrhythmic events were noted on telemetry. The chest pain does occasionally respond to nitroglycerin but also has non-cardiac characteristics. CTA done on this admission does not demonstrate a PE, but this does not negate her having had a PE on 02/17/21. She should have an outpatient MPI stress test due to the chest pain's responsiveness to nitroglycerin. We have verified that the patient had filled the correct prescription for eliquis and that she is currently on 5 mg PO BID at home. The patient is chest pain free now. She can use tylenol for her chest pain should it recur. She is medically stable for discharge home today with outpatient MPI per PCP. Home Meds and New Rx's Prescriptions: Continued fluticasone propionate 50 mcg/actuation spray,suspension 2 spray RAYRAY DAILY Qty: 16 RF: 12 paliperidone 6 mg tablet extended release 24hr 6 mg PO QAM RF: 0 aspirin [Aspir-81] 81 MG tablet,delayed release (DR/EC) 81 mg PO DAILY RF: 0 cholecalciferol (vitamin D3) 1,000 UNIT tablet 1,000 unit PO DAILY Qty: 90 RF: 4 mirtazapine 30 MG tablet 30 mg PO HS RF: 0 sertraline 50 mg tablet 100 mg PO BID RF: 0 diazepam [Valium] 5 mg tablet 2.5 mg PO BID RF: 0 risperidone [Risperdal] 1 mg tablet 2 mg PO QHS RF: 0 neomycin-polymyxin B-dexameth [Maxitrol] 3.5 mg/g-10,000 unit/g-0.1 % ointment 1 applic ophthalmic (eye) QID Qty: 3.5 RF: 0 atorvastatin 20 mg tablet 20 mg PO QHS Qty: 90 RF: 3 acetaminophen [Tylenol] 325 mg Tablet 650 mg PO Q4H PRN PRNQty: 0 RF: 0 lidocaine [Lidoderm] 5 % Adhesive Patch,Medicated 1 patch topical Q24H Qty: 15 RF: 0 apixaban 5 mg Tablet 5 mg PO BID RF: 0 Discontinued apixaban 5 mg tablet 5 mg PO DAILY Qty: 90 RF: 1 Discharge Instructions Instructions: Chest Pain (DC) Additional Instructions: Make sure that apixaban dose is 5 mg PO BID. Use tylenol for chest pain. Follow up with PCP in 1 week. Return to the hospital with any fever, bleeding, chest pain that does not respond to tylenol, or shortness of breath. Referrals: Faith Fischer [facility] [Primary Care Provider] - Activity:: Activity as Tolerated Equipment/Supplies:: No Equipment Needed Diet:: As Tolerated Discharge Orders Discharge Orders: Discharge Order (Routine); Ordered 03/04/21 Ordered By: Michelle Bhandari DS: Summary Time Spent with Patient providing and/or coordinating discharge services: Less than 30 minutes Status at Discharge Functional status at discharge: independent ambulation Overall status at discharge: patient is back to baseline Mental Status: mental status grossly normal Speech and Movement: speech and movement normal Mood: congruent mood Affect: normal affect Exam Narrative Exam Narrative: General: Elderly female, A&O, no distress HEENT: EOMI, MMM Heart: RRR, no m/r/g Lungs: CTAB Abdomen: soft, nontender, nondistended Extremities: no edema BLE's Psych Mental Status: mental status grossly normal Speech and Movement: speech and movement normal Mood: congruent mood Affect: normal affect DS: Data Vitals/I&O Vitals and I&O: Vital Signs Temperature 36 C L 03/04/21 09:39 Temperature Source Temporal Artery Scan 03/04/21 09:39 Pulse 90 03/04/21 09:39 Pulse 64 03/04/21 06:01 Respiratory Rate 18 03/04/21 09:39 Respiratory Effort 03/04/21 09:39 Respiratory Depth Normal 03/03/21 16:20 Respiratory Pattern Normal 03/04/21 09:39 Blood Pressure 109/50 L 03/04/21 06:01 Blood Pressure Mean 65 03/04/21 06:01 Blood Pressure Position Supine 03/03/21 22:37 Pulse Oximetry 96 03/04/21 09:39 Oxygen Delivery Method Nasal Cannula 03/04/21 09:39 Oxygen Flow Rate 1 03/04/21 09:39 Pain Level 0 03/04/21 09:39 Intake & Output 03/03/21 03/03/21 03/04/21 11:59 23:59 11:59 Intake Total 11.15 / 11.15 171.133 / 171.133 Output Total 350 / 350 Balance -338.85 / -338.85 171.133 / 171.133 Weight 64.3 kg 64.3 kg Intake: IV 11.15 / 11.15 171.133 / 171.133 Output: Urine 350 / 350 Other: Urine Color Yellow Urine Appearance Clear Urine Odor Strong Data Completed and Pending Completed studies during hospitalization [Text1]: CXR 03/03/21: No acute abnormality. CTA chest 03/03/21: No pulmonary emboli. Bilateral changes of fibrosis. Scattered small airspace opacities, cannot rule out infectious/inflammatory etiology. No maricruz consolidations/infiltrates. Labs on day of discharge: Labs from last 24 hours 03/04/21 03/04/21 03/04/21 07:00 07:00 07:00 WBC 9.17 RBC 4.29 Hgb 12.6 Hct 39.6 MCV 92.3 MCH 29.4 MCHC 31.8 L RDW 15.1 H Plt Count 274 MPV 10.0 Immature Gran % 0.5 Neutrophils % 79.9 Lymphocytes % 14.4 Monocytes % 5.0 Eosinophils % 0.0 Basophils % 0.2 Nucleated RBC % 0 Absolute Neutrophils 7.32 H Absolute Lymphocytes 1.32 Absolute Monocytes 0.46 Absolute Eosinophils 0.00 Absolute Basophils 0.02 PT INR APTT 77.8 H D Sodium 143 Potassium 4.0 Chloride 107 Carbon Dioxide 26.8 Anion Gap 9.2 BUN 16 Creatinine 0.6 Estimated GFR/1.73 m2 >= 60.00 Glucose 105 Calcium 9.6 Total Bilirubin AST ALT Alkaline Phosphatase Troponin I < 0.05 NT-Pro-B Natriuret Pep Total Protein Albumin COVID-19 Source SARS-CoV-2 (PCR) 03/03/21 03/03/21 03/03/21 23:25 23:25 19:05 WBC RBC Hgb Hct MCV MCH MCHC RDW Plt Count MPV Immature Gran % Neutrophils % Lymphocytes % Monocytes % Eosinophils % Basophils % Nucleated RBC % Absolute Neutrophils Absolute Lymphocytes Absolute Monocytes Absolute Eosinophils Absolute Basophils PT INR APTT 110.0 H* D Sodium Potassium Chloride Carbon Dioxide Anion Gap BUN Creatinine Estimated GFR/1.73 m2 Glucose Calcium Total Bilirubin AST ALT Alkaline Phosphatase Troponin I < 0.05 < 0.05 NT-Pro-B Natriuret Pep Total Protein Albumin COVID-19 Source SARS-CoV-2 (PCR) 03/03/21 03/03/21 03/03/21 17:55 15:50 15:50 WBC 8.07 RBC 4.35 Hgb 12.6 Hct 40.3 MCV 92.6 MCH 29.0 MCHC 31.3 L RDW 15.0 H Plt Count 267 MPV 9.7 Immature Gran % 0.2 Neutrophils % 59.9 Lymphocytes % 26.3 Monocytes % 10.2 Eosinophils % 2.9 Basophils % 0.5 Nucleated RBC % 0 Absolute Neutrophils 4.84 Absolute Lymphocytes 2.12 Absolute Monocytes 0.82 H Absolute Eosinophils 0.23 Absolute Basophils 0.04 PT 11.2 H INR 1.1 APTT 24.1 Sodium Potassium Chloride Carbon Dioxide Anion Gap BUN Creatinine Estimated GFR/1.73 m2 Glucose Calcium Total Bilirubin AST ALT Alkaline Phosphatase Troponin I NT-Pro-B Natriuret Pep Total Protein Albumin COVID-19 Source Nasal/nares SARS-CoV-2 (PCR) Negative 03/03/21 15:50 WBC RBC Hgb Hct MCV MCH MCHC RDW Plt Count MPV Immature Gran % Neutrophils % Lymphocytes % Monocytes % Eosinophils % Basophils % Nucleated RBC % Absolute Neutrophils Absolute Lymphocytes Absolute Monocytes Absolute Eosinophils Absolute Basophils PT INR APTT Sodium 144 Potassium 4.2 Chloride 107 Carbon Dioxide 28.0 Anion Gap 9.0 BUN 20 H Creatinine 0.6 Estimated GFR/1.73 m2 >= 60.00 Glucose 109 H Calcium 9.5 Total Bilirubin 0.1 L AST 16 ALT 25 Alkaline Phosphatase 104 Troponin I < 0.05 NT-Pro-B Natriuret Pep 199 Total Protein 7.2 Albumin 3.6 COVID-19 Source SARS-CoV-2 (PCR) PFSH Medical History Anxiety Colon cancer screening declined Colonoscopy refused Family history of DVT Family history of stroke Hyperlipemia Mammogram declined Migraine PTSD (post-traumatic stress disorder) Surgical History Appendectomy History of hysterectomy Family History Mother Heart disease Father Heart disease CHF Sister No problems noted. Social History Smoking/Tobacco Use Status: Never Smoking risk assessment performed?: Yes Alcohol Intake: never Drug use: Never Substance use type: does not use Household members: caregiver and other Details: Arlene is caregiver, Arlene's and another client Housing: house What type of physical activity do you participate in: none Seatbelt use: always Drive intox or ride w/intox service car driver: No Working smoke detector in home: Yes Fire extinguisher in home: Yes Carbon monox detector in home: Yes Firearms in home: No Do you feel safe at home: Yes Do you feel safe in your relationship?: Yes
--- NOTE | 2021-03-04 15:27 | PDOC.CMDIS ---
- If Service Date Differs Date of service: 03/04/21 Time of Service: 15:27 LACE Index Scoring Tool - Questions: Length of Stay (in days): 1 Acuity (Admit via E.D.?): Yes Comorbidities: Diabetes w/o Complication E.D. Visits: 2 - Answers: Total Score: 7 Risk of Readmission: Low Risk Care Management Discharge Reason for Hospitalization: Chest Pain Discharge Plan: Faith will return home today with no additional services. She has a caregiver, Arlene, who assists her with her ADL's, and will drive her home via private vehicle. She will follow up with her PCP and her discharge plan of care. CM emailed the CCC at her PCP office for close follow up post hospital discharge. Faith states that she is feeling better and is happy to be going home. Patient/Family Education Needs: Review discharge instructions regarding medications with pt and caregiver, discussion of self care needs and goals of care.
== END 2021-03-04 14:32 | disposition home or self-care (01) ==
LOC: ER 20:21 → ICU 22:05
PROVIDERS: Admitting Provider Family Medicine; Emergency Provider Physician Assistant; PCP Nurse Practitioner; Visit Provider Family Medicine
DX: R07.81 Pleurodynia; E11.9 Type 2 diabetes mellitus without complications; Z20.822 Contact with and (suspected) exposure to COVID-19; Z79.01 Long term (current) use of anticoagulants; E78.5 Hyperlipidemia, unspecified; Z86.711 Personal history of pulmonary embolism; F41.9 Anxiety disorder, unspecified; F43.10 Post-traumatic stress disorder, unspecified
CPT/HCPCS: 36415; 71275; 80048; 80053; 87635; 93005; 96365; 96366; 96375; 96376; 99217; 99220; 99285; 71045; 83880; 84484; 85025; 85610; 85730; 93010; G0378; J1200; J1644; J2930

== ENCOUNTER 2021-03-20 01:05 | Outpatient (CLI) | payer MEDICARE, MEDICAID, SELFPAY ==
--- NOTE | 2021-03-20 07:15 | DI.NM_ITS ---
APPROVED REPORT Exam: Pharmacologic Patient Location: Out-Patient Room/Bed: Stress Nurse: Lizbeth Atkinson RN Ordering Provider:MEREDITH GONZALEZ, Contact Number: [phone] BMI: 23.72 Baseline Rhythm: Sinus Rhythm Indications: CHEST PAIN. Medical History Medical History: Anxiety, Osteopenia, HLD, PTSD, Chest pain, Pulmonary Embolism Cardiac Medications: Nitro patch, Atorvastatin, Aspirin, Eliquis Allergies: Caffeine, Iodinated contrast media, Morphine, Pravastatin, Penicillins Cardiac Risk Factors: FHX of CAD, Hyperlipidemia Previous Cardiac Procedures: None Pretest Chest Pain Characteristics: Non-exertional Chest pain, 1/10 (when arms raised) Exercise History: Sedentary Physical Disabilities: None. Lung Sounds: Clear to auscultation Heart Sounds: Regular Stress Test Details Test: Exercise stress converted to pharmacologic stress due to failure to obtain a diagnostic stress test. Reason for pharmacologic stress test: physical limitation. Nuclear Acquisition: Rest Tc-99m/Stress Tc-99m 1 day Rest Isotope: Tc-99m Sestamibi. Dose: 10.5 Date: 03/20/2021 Injection Time: 0930 Stress Isotope: Tc-99m Sestamibi. Dose: 36.8 Date: 03/20/2021 Injection Time: 1130 HR Resting HR Supine: 77 bpm Max Heart Rate (APMHR): 150.467709 bpm Resting HR Standin bpm Target HR (85% APMHR): 127.293292 bpm Max HR Achieved: 121 bpm % of APMHR: 80.67 Recovery HR: 102 bpm BP Resting BP Supine: 130/78 mmHg Resting BP Standin/74 mmHg Max BP: 144/70 mmHg Recovery BP: 132/68 mmHg ECG Resting ECG: Sinus Rhythm Ectopy: None. Stress ECG: Sinus Tachycardia Arrhythmia: occasional PVC Recovery ECG: Sinus Tachycardia Recovery ST Change: No significant ST segment changes noted Recovery Arrhythmia: occasional PVCs. Clinical Reason for Termination: Chest pain complaints, unable to walk on treadmill safely Stress Symptoms: Headache, Chest pain Exercise duration: 0 min35 sec Highest Stage Reached: Stage 1: 1.7 mph at 10% grade. Rate Pressure Product: [id number] Stress ECG Conclusion 1. This was an exercise study converted to a pharmacological study due to inability to walk safely. 2. There were no significant ST changes. 3. EKG portion of this exam is nondiagnostic. Stress Test Summary STAGE Time (mins) Speed (mph) Grade (%) HR BP SYMPTOMS METS Supine 77 130/78 Standing 92 132/74 1 3 1.7 10 10/10 CHEST PAIN 4.6 1 min post Lexiscan injection 115 144/70 HEADACHE. LIGHT CHEST PAIN 3 min post Lexiscan injection 113 138/66 SEVERE CHEST PAIN 6 min post Lexiscan injection 107 132/68 SYMPTOMS RESOLVED. Patient with vague complaints of chest pain before and during test. States she has slight chest pain at rest when her arms are above her head, but none just lying there with arms down. Reports 10/[address] pain with exercise. This, plus inability to safely walk on treadmill, is the reason the test was t ransitioned to lexiscan. Patient reports less chest pain at rest after injection, but 2-3 minutes fol lowing injection reports severe chest pain in her throat, then down her left arm. Patient is unable t o rate the pain or describe it for nursing staff. Monitoring stopped after 10 min when HR was within 10 bpm of pre-exercise HR. MPI Conclusion Ejection fraction was 54% with stress. There was hypokinesis of the septum. Despite wall motion abnormality of the septum, there is no significant perfusion defect. This likely represents a normal SPECT stress test. Radiologist Interpretation Doubt significant perfusion defect on stress images. Discussed with Dr. Mendez. Radiologist Interpretation by: Mark Jurado MD Interpretation Date/Time: 03/21/2021 14:04:36
[2021-03-20] MEDS: Regadenoson 0.4 MG/5 ML SYR IVP (11:44)
== END 2021-03-20 01:25 ==
PROVIDERS: PCP Nurse Practitioner; Visit Provider Nurse Practitioner
DX: R07.9 Chest pain, unspecified (principal); Z82.49 Family history of ischemic heart disease and other diseases of the circulatory system; E78.5 Hyperlipidemia, unspecified; I51.89 Other ill-defined heart diseases
CPT/HCPCS: 78452; 93016; 93018; 93017; J2785

== ENCOUNTER → 2021-03-31 10:01 | Outpatient (BNVA) | payer MEDICARE, MEDICAID, SELFPAY | PROVIDERS: PCP Nurse Practitioner; Referring Provider Nurse Practitioner; Visit Provider Internal Medicine Cardiovascular Disease | DX: R07.89 Other chest pain (principal); I26.99 Other pulmonary embolism without acute cor pulmonale; F41.9 Anxiety disorder, unspecified; I49.1 Atrial premature depolarization; I49.3 Ventricular premature depolarization | CPT/HCPCS: 99204; 99214; 93225 ==

== ENCOUNTER 2021-03-31 10:46 | Outpatient (RCR) | payer MEDICARE, MEDICAID, SELFPAY ==
--- NOTE | 2021-03-31 11:00 | HOLTER_ITS ---
APPROVED REPORT Conclusion There is a 48-hour monitor ordered for indication of chest pain. The patient was in normal sinus rhythm for the majority of the recording with an average heart rate o f 86 bpm. There were no episodes of ventricular tachycardia and one episode of SVT lasting 5 beats. There were rare PACs and rare PVCs. There is no evidence of atrial fibrillation, no pauses greater than 3 seconds and no evidence of high degree heart block. There were no patient triggered events.
== END 2021-04-10 23:59 | disposition home or self-care (01) ==
LOC: RT 10:46
PROVIDERS: PCP Nurse Practitioner; Visit Provider Internal Medicine Cardiovascular Disease
DX: R07.9 Chest pain, unspecified (principal); I49.1 Atrial premature depolarization; I49.3 Ventricular premature depolarization
CPT/HCPCS: 93227; 93225; 93226

== ENCOUNTER → 2021-04-24 09:53 | Outpatient (BNVA) | payer MEDICARE, MEDICAID, SELFPAY | PROVIDERS: PCP Nurse Practitioner; Referring Provider Nurse Practitioner; Visit Provider Internal Medicine Cardiovascular Disease | DX: R07.89 Other chest pain (principal); I26.99 Other pulmonary embolism without acute cor pulmonale | CPT/HCPCS: 99443; 99213 ==

== ENCOUNTER 2021-06-02 04:46 | Outpatient (CLI) | payer MEDICARE, MEDICAID, SELFPAY ==
--- NOTE | 2021-06-02 09:30 | DI.MAMMO_ITS ---
Exam(s) MAMMO SCREENING EXAM: MAMMO SCREENING CLINICAL HISTORY: screening,Z12.39 TECHNIQUE: Mammograms were interpreted according to the usual protocol including computer analysis w cisimple CAD system, tomosynthesis and C-view imaging. COMPARISON: 2013 through 2016 FINDINGS: The breasts are composed of scattered fibroglandular densities, Breast Density category B. No suspicious masses or suspicious microcalcifications are seen. No skin thickening or abnormal axillary lymph nodes are seen. There has been no significant change from prior exams. IMPRESSION: BI-RADS Category 1, Negative mammogram Yearly screening mammography is recommended. Breast Density - Category B, scattered fibroglandular densities. A negative radiographic report should not delay biopsy if a dominant or clinically suspicious mass is present. Up to ten percent of cancers are not identified on mammography. A negative report may reinforce clinical impression. Adenosis and dense breasts may obscure an underlying neoplasm. False positive reports average 6 to 10%. Patient will receive a letter notifying them of these results.
== END 2021-06-02 05:06 ==
PROVIDERS: PCP Nurse Practitioner; Visit Provider Nurse Practitioner
DX: Z12.31 Encounter for screening mammogram for malignant neoplasm of breast (principal); R92.8 Other abnormal and inconclusive findings on diagnostic imaging of breast
CPT/HCPCS: 77063; 77067

== ENCOUNTER 2021-06-07 02:14 | Outpatient (CLI) | payer MEDICARE, MEDICAID, SELFPAY ==
--- NOTE | 2021-06-07 10:34 | DI.US_ITS ---
APPROVED REPORT EXAM: Comprehensive 2D, Doppler, and color-flow Echocardiogram Patient Location: Out-Patient Business Relationship Manager: Radha Valdovinos RDCS (AE) Indications: Chest pain Other Information Study Quality: Adequate Conclusion Left Ventricle : The left ventricle is normal size. Left ventricular systolic function is low normal. There is normal left ventricular wall thickness. There is normal LV segmental wall motion. The left ventricular diastolic function is normal. LVEF is 53%. Right Ventricle : Right ventricle is grossly normal in size. Right ventricular systolic function is g rossly normal. The RVSP is 32.7 mmHg. Atria : The left atrium size is normal. The right atrium size is normal. Valves: There are no hemodynamically significant valvular lesions. Great Vessels : The aortic root is normal in size. The ascending aorta is normal in size. Aortic arch is normal in caliber. IVC is normal in size and collapses >50% with inspiration. Wall motion Left Ventricle The left ventricle is normal size. Left ventricular systolic function is low normal. There is normal left ventricular wall thickness. There is normal LV segmental wall motion. The left ventricular diast olic function is normal. There is no ventricular septal defect visualized. LVEF is 53%. Right Ventricle Right ventricle is grossly normal in size. Right ventricular systolic function is grossly normal. The RVSP is 32.7 mmHg. Atria The left atrium size is normal. The right atrium size is normal. The interatrial septum is intact wit h no evidence for an atrial septal defect. Aortic Valve The aortic valve is normal in structure. Aortic valve is trileaflet. There is no aortic valvular sten osis. No aortic regurgitation is present. Mitral Valve The mitral valve is normal in structure. No evidence of mitral valve stenosis. Trace mitral regurgita tion. Tricuspid Valve The tricuspid valve is normal in structure. There is no tricuspid valve stenosis. Trace tricuspid reg urgitation. Pulmonic Valve The pulmonary valve is normal in structure. There is no pulmonic valvular stenosis. There is no pulmo terra valvular regurgitation. Great Vessels The aortic root is normal in size. The ascending aorta is normal in size. Aortic arch is normal in ca liber. IVC is normal in size and collapses >50% with inspiration. Pericardium There is no pericardial effusion. 2D Dimensions IVSD d PLAX 0.85 cm F: 0.6-1.0 LV Vol A2C d MOD 78.4 mL LVPW d PLAX 0.84 cm F: 0.6 - 1.0 LV Vol A4C d MOD 72.5 mL LVID d PLAX 4.10 cm F: 3.8 - 5.2 LA vol/ BSA A2C s A-L 20.7 mL/m2 LVDs 2.90 cm F: 2.2 - 3.5 LA Area A2C s MOD 14.29 cm2 Ao Root d 2.38 cm F: 2.7 - 3.3 LV EF A4C MOD 51.2 % RA Area A4C 11.17 cm2 LV EF A2C MOD 52.7 % RA Vol/ BSA A4C s A-L 13.4 mL/m2 LV EF Biplane MOD 50.4 % Ao Asc Diam d 2.53 cm F: 2.3 - 3.1 SV 38.34 mL LV EF Teichholz 56.2 % SV Index 22.10 mL/m2 LVEF (William's) 50.41 % F: 54 - 74 LV Volume 59.95 mL F: 46 - 106 LV Volume Index 34.65 mL/m2 F: 29 - 61 LV Vol Biplane MOD 76.0 mL FS 28.95 % M-Mode TAPSE 2.02 cm (M/F) >1.7 LV Diastology MV E' medial 0.095 (>0.07 m/s) E/A Ratio 0.7 LV E/e MED 6.95 (<14) MV E Vmax 0.66 (0.4-1.3 m/s) MV E' lateral 0.094 (>0.1 m/s) MV A Vmax 0.90 (0.4-1.3 m/s) LV E/e LAT 7.05 (<14) MV E/A Ratio 0.72 MV E/E' medial 6.96 MV E/E' lateral 7.05 Aortic Valve LVOT Area 2.62 cm2 AoV Area Vmax 2.15 cm2 LVOT Vmax 1.18 m/s AoV Area/ BSA (Vmax) 1.24 cm2/m2 LVOT Mean Beto. 0.71 m/s YAO Mean Beto. 1.88 cm2 LVOT Peak Grad 5.6 mmHg YAO Mean Beto. Index 1.09 cm2/m2 LVOT Mean Grad 2.5 mmHg LVOT VTI 0.213 m LVOT Diam s 1.80 cm AoV Vmax 1.43 m/s Velocity Ratio 0.82 AoV Mean Beto. 0.98 m/s AoV Peak Grad 8.2 mmHg LVOT SV 55.72 mL AoV Mean Grad 4.4 mmHg AoV VTI 0.286 m AoV Area VTI 1.95 cm2 AoV Area/ BSA (VTI) 1.12 cm/m2 Mitral Valve MV DT 195 (160-240 msec) MV PHT 56 msec MV Area PHT 3.90 cm2 MV VTI 0.224 m MV Area VTI 2.49 (4.0-6.0 cm2) Pulmonary Valve PV Vmax 1.19 (0.5-1.5 m/s) RVOT Peak Gr. 2.79 mmHg PV Peak Grad 5.7 mmHg RVOT Mean Gr. 1.50 mmHg PV Mean Grad 2.7 mmHg RVOT VTI 0.175 m PV VTI 0.219 m RVOT Vmax 0.84 m/s Tricuspid Valve TR Peak Grad 29.7 mmHg TR Vmax 2.73 m/s RA Pressure 3.00 mmHg RVSP (TR) 32.7 mmHg
== END 2021-06-07 02:34 ==
PROVIDERS: PCP Nurse Practitioner; Visit Provider Internal Medicine Cardiovascular Disease
DX: R07.9 Chest pain, unspecified (principal)
CPT/HCPCS: 93306

== ENCOUNTER 2021-09-05 00:19 | Outpatient (CLI) | payer MEDICARE, MEDICAID, SELFPAY ==
--- NOTE | 2021-09-05 14:08 | DI.CT_ITS ---
Exam(s) CT CHEST WO EXAM: CT CHEST WO CLINICAL HISTORY: f/u nodule, 5mm DUARTE TECHNIQUE: Imaging Protocol: Axial computed tomography images with coronal and sagittal reformatted images were created and reviewed CONTRAST MATERIAL: Intravenous: Omnipaque 350 Contrast volume:structured data in ml. COMPARISON: CT CT CHEST PE CTA from 02/17/[address] CHEST PE CTA from 03/03/2021 CR XR PORTABLE CHEST AP from 03/03/2021 FINDINGS: The evaluation of the lung parenchyma is severely limited by respiratory motion. Tracheobronchial tree: No bronchiectasis or mucous plugging. Mediastinum and Consuelo: No dominant adenopathy or fluid collection. Pulmonary parenchyma: Densities persist in the posterior left upper lobe adjacent to the major fissur e. There is a somewhat nodular appearance. The findings are slightly more prominent when compared wi th the previous exam. There is mild scarring at the lung apices. No new infiltrates are new nodules a re seen. Pleura: No effusion or pneumothorax. Heart: The heart is not dilated. Mild coronary artery calcifications are seen. Aorta: Thoracic aorta non-dilated. Upper abdomen: Unremarkable. Lymph nodes: Within normal limits. Bones: Unremarkable for age. Soft tissues: Unremarkable. IMPRESSION: Mild interval increase in size of left upper lobe nodular densities. PET CT could be considered for f urther evaluation. RADIATION DOSE DELIVERED: 421.44mGy.cm Total DLP DATA REPOSITORY: All CT scans at this facility are submitted to the National Radiology Data Registry (NRDR) Dose Index Registry (DIR) with the [employer] (ACR). RADIATION OPTIMIZATION: All CT scans at this facility use at least one of these dose optimization te chniques: automated exposure control; mA and/or kV adjustment per patient size (includes targeted exa ms where dose is matched to clinical indication); or iterative reconstruction.
== END 2021-09-05 00:39 ==
PROVIDERS: PCP Nurse Practitioner; Visit Provider Nurse Practitioner
DX: R91.1 Solitary pulmonary nodule (principal)
CPT/HCPCS: 71250

== ENCOUNTER 2021-09-19 15:51 | Outpatient (REF) | payer MEDICARE, MEDICAID, SELFPAY ==
[2021-09-20 17:33] LABS: Rheumatoid Factor <8.6 IU/mL (<12.0)
[2021-09-21 08:11] LABS: Cyclic Citrullinated Peptide <2.5 U/mL (<5.0)
[2021-09-21 13:05] LABS: dsDNA Ab, IgG 20.7 IU/mL (<30.0)
[2021-09-21 13:55] LABS: ANA Interpretation Negative (Negative)
== END 2021-09-19 15:52 | disposition home or self-care (01) ==
LOC: LBN 15:51
PROVIDERS: PCP Nurse Practitioner; Visit Provider Student in an Organized Health Care Education/Training Program
DX: J84.10 Pulmonary fibrosis, unspecified (principal)
CPT/HCPCS: 86200; 86038; 86225; 86431

== ENCOUNTER 2021-09-22 01:56 | Outpatient (CLI) | payer MEDICARE, MEDICAID, SELFPAY ==
--- NOTE | 2021-09-22 16:43 | PFT_ITS ---
Date of service: 09/22/21 Time of Service: 12:55 Pulmonary Function Test Result Requesting Provider Duchene Indications: Pulmonary fibrosis Interpretation Spirometry: There is no airflow limitation. There is restrictive appearing spirometry. Lung Volumes: There is a normal total lung capacity with evidence of air tr apping. Airway Pressure: Airways resistance is normal. Impression Restrictive appearing spirometry with a normal total lung capacity and evidence of air trapping. Note: Test significantly limited due to patient comprehension and participation. Clinical Correlation therefore is recommended.
== END 2021-09-22 01:57 | disposition home or self-care (01) ==
LOC: RT 01:56
PROVIDERS: PCP Nurse Practitioner; Visit Provider Student in an Organized Health Care Education/Training Program
DX: J84.10 Pulmonary fibrosis, unspecified (principal); R06.09 Other forms of dyspnea; R94.2 Abnormal results of pulmonary function studies
CPT/HCPCS: 94726

== ENCOUNTER 2022-03-09 01:27 | Outpatient (CLI) | payer MEDICARE, MEDICAID, SELFPAY ==
[2022-03-09 12:07] LABS: Source Nasal/Nares
[2022-03-09 17:28] LABS: COVID-19 PCR Negative (Negative)
== END 2022-03-09 01:28 | disposition home or self-care (01) ==
LOC: LBO 01:27
PROVIDERS: PCP Nurse Practitioner; Visit Provider Family Medicine
DX: Z20.822 Contact with and (suspected) exposure to COVID-19 (principal); Z01.818 Encounter for other preprocedural examination
CPT/HCPCS: 87635; U0005

== ENCOUNTER 2022-03-13 00:29 | Outpatient (CLI) | payer MEDICARE, MEDICAID, SELFPAY ==
--- NOTE | 2022-03-13 07:12 | DI.RAD_ITS ---
Exam(s) RF MODIFIED SPEECH BA SWALLOW TECHNIQUE: Modified barium swallow was performed in conjunction with speech pathology. CONTRAST MATERIAL: Oral barium Oral water soluble contrast was administered. COMPARISON: No exams were available for comparison FINDINGS: Possibly was provided for speech therapist modified barium swallow study performed in our department. Please see speech therapist for details. During this study there did appear to be some mild aspiration evident. IMPRESSION: Above. Total fluoroscopy time 78 seconds Cumulative dose 5.62mGy RADIATION DOSE DELIVERED: vj Garcia= mGy
--- NOTE | 2022-03-13 11:16 | ST.MBS_ITS ---
Date of Service Date of service: 03/13/22 Time of Service: 11:16 Modified Barium Swallow Study Findings: Videofluoroscopic Swallowing Evaluation / Modified Barium Swallow Study (VFSE/MBSS) Speech Language Pathology Report ? Patient referred bt Dr. Francois for VFSE/MBSS following initial clinical swallow evaluation given suspected dysphagia in setting of chronic GERD, pulmonary fibrosis, and oral-motor weakness. See initial Speech Therapy Evaluation dated 12/01/2021 for further HPI & medical history. SUBJECTIVE: Faith arrived on time for this procedure, ambulating independently. She was aware of the reason for the visit and remained agreeable throughout. She recalled specific details from our initial visit several months ago, including diet consistency recommendations, and strategies for taking medications to reduce s/sx aspiration. ? ? OBJECTIVE: Videofluoroscopic Swallow Evaluation (VFSE/MBSS) was conducted in the lateral projection by Speech-Language Pathologist, in collaboration with Radiologist, to evaluate oropharyngeal swallow function. Anatomic view under fluoroscopy: Kyphotic posture ? PO barium contrast trials: Oral barium water soluble contrast was administered as follows: IDDSI Level 0 Varibar thin liquid (40% w/v) IDDSI Level 4 Varibar pudding/pureed/extremely thick (40% w/v) IDDSI Level 7 Regular Solid: 1/2 hussain cracker coated in 3 mL Varibar pudding; 13 mm barium tablet ? ? PHYSIOLOGIC FINDINGS ? Oral Phase ? 1 Lip Closure: 2-Escape from interlabial space or lateral juncture; no extension beyond brad border ? 2 Tongue Control: 0- Cohesive bolus between tongue to palatal seal 3 Bolus Preparation/Mastication: 0- Timely and efficient chewing/mashing 4 Bolus Transport/Lingual Motion: 0- Brisk tongue motion ? 5 Oral residue: 1- Trace residue lining oral structures Location: tongue, palate ? 6 Initiation of pharyngeal swallow:? 0- Bolus head at posterior angle of ramus; first hyoid excursion ? ? Pharyngeal Phase ? 7 Velar Elevation: 1- Trace column of contrast or air between soft palate and pharyngeal wall ? 8 Laryngeal Elevation:? 1- Partial superior movement of thyroid cartilage with partial approximation of arytenoids to epiglottic petiole 9 Anterior Hyoid Excursion: 0- Complete anterior movement 10 Epiglottic Movement:? 1- Partial? inversion ? 11 Laryngeal Vestibule Closure: 1- Incomplete; narrow column of air/contrast in laryngeal vestibule Penetration occurs prior to, during swallow onset from current bolus. ? 12 Pharyngeal Stripping Wave:? 0- Present; complete 13 Pharyngeal Contraction: DNT; lack of AP view ? 14 PES/UES Opening:? 1- Partial distension and partial duration; partial obstruction of flow *noting appearance of posterior CP or proximal esophageal prominance which does not appear to impact bolus flow in a clinically significant way - minimal pyriform residue ? 15 Tongue Base Retraction: 1- Trace column of contrast between tongue base and posterior pharyngeal wall 16 Pharyngeal residue:? 1- Trace residue within or on pharyngeal structures Location: Diffuse ? [place] Pharyngeal Residue Severity Rating Scale (YPRS) (Sonia, et al, 2015) ? Vallecula Residue Severity II Trace 1-5% Trace coating of the mucosa ? Pyriform Sinus Residue Severity II Trace 1-5% Trace coating of the mucosa Esophageal Phase ? 17 Esophageal Clearance Upright Position: DNT; lack of AP view NOTE: This study was performed for interpretation only of the oropharyngeal and pharyngoesophageal domains of swallowing. It is not intended to diagnose any other radiologic abnormalities or substitute for a formal esophagram study. ? Overall 8-Point Penetration-Aspiration Scale (PAS) (Rosenbek, et al, 1996) 1 - No material enters the airway. 2 - Material enters the airway, remains above the vocal folds, and is ejected? from the airway. 3 - Material enters the airway, remains above the vocal folds, and is not? ejected from the airway. 4 - Material enters the airway, contacts the vocal folds, and is ejected from the? airway. 5 - Material enters the airway, contacts the vocal folds, and is not ejected from? the airway. 6 - Material enters the airway, passes below the vocal folds, and is ejected into? the larynx or out of the airway. 7 - Material enters the airway, passes below the vocal folds, and is not ejected? from the trachea despite effort. - THIN LIQUIDS LARGE VOLUME/FAST RATE 8 - Material enters the airway, passes below the vocal folds, and no effort is? made to eject. ? Clinical Indicator(s) of Prandial/Postprandial Aspiration: Cough Trialed Compensatory Swallow Strategies & Outcome: ? Maneuvers 3-second Preparatory Set - successful Bolus Modifications Delivery/Via Straw - unsuccessful Reduced Volume - successful Reduced Rate of Intake - successful ? Dysphagia Outcome and Severity Scale (DISHA) LEVEL 4 - Full PO: modified diet and/or independence - Mild-moderate dysphagia; Intermittent supervision/cueing, 1 or 2 consistencies restricted ? IMPRESSIONS: Mild-moderate pharyngeal dysphagia, likely chronic; dysphagia presentation likely due to normal aging, chronic GERD, pulmonary status. Swallow safety is impaired; swallow efficiency is preserved.. Patient appears to be at moderate risk for potential aspiration PNA, pulmonary compromise and low risk for malnutrition, dehydration. Diet modification is indicated. Swallow prognosis is good given successful mitigation of aspiration risk with use of strategies and excellent recall/implementations of prior recommendations, and pending patient/caregiver training in risk management as outlined. ? PLAN: Diet recommendation: IDDSI Level: 6-Soft & Bite-Sized Solids 0-Thin Liquids - SMALL SIPS Please see further details at www.iddsi.org Diet texture modification is per patient's preference; please adjust diet textures at patient's discretion & collaboration with care team. ? Risk Management: Behavioral reflux precautions, including upright position during + 90 mins after meals. Small bites, approx [id number] Very small sips, approx 5mL / teaspoon Encourage avoidance of straws Consider use of provale cup to ensure small sip size. Control risk factors for aspiration pneumonia via (a) thorough oral hygiene & (b) maintaining physical mobility as tolerated Other Recommendations: Consider use of wedge pillow to elevate sleeping position and minimize nighttime reflux which can lead to pulmonary complications. Specialist referrals: n/a - Patient has appt with neurology in June ? Ancillary tests: n/a ? Therapy: Patient demonstrates excellent attention to detail and excellent recall of p revious recommendations given in our initial clinic session and appears to be a great candidate for independent implementation of recommendations provided this date. She is receptive to recommendations provided and communicated them to her niece accurately at the end of this procedure. 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 Patient is welcome to return PRN. ? Goal: n/a ? Follow-up exam: N/A ? Thank you for allowing me to take part in this patient's care. ? Please feel free to contact me with any questions/concerns. ? Pilar Lay M.S., [facility]-SAL[employer] AUDIT CLERK Speech Language Pathologist [phone] ? Coding CPT Codes MOTION FLUOROSCOPY/SWALLOW - [id number] ([id number])
[2022-03-13] MEDS: Barium Sulfate Oral Paste 40% W/V 230 ML TUBE 30 ML PO (11:28)
[2022-03-13] MEDS: Barium Sulfate 700 MG TAB PO (11:31)
[2022-03-13] MEDS: Barium Sulfate 81% w/w for Oral Suspension 148 GM BTL 30 GM PO (11:31)
== END 2022-03-13 00:49 ==
PROVIDERS: PCP Nurse Practitioner; Visit Provider Student in an Organized Health Care Education/Training Program
DX: R13.13 Dysphagia, pharyngeal phase (principal); K21.9 Gastro-esophageal reflux disease without esophagitis
CPT/HCPCS: 92526; 92611; 74221

== ENCOUNTER → 2022-04-26 02:25 | Outpatient (CLI) | payer MEDICARE, MEDICAID, SELFPAY ==
--- NOTE | 2022-04-26 07:30 | DI.CT_ITS ---
Exam(s) CT CHEST WO EXAM: CT CHEST WO CLINICAL HISTORY: f/u pulmonary nodule,R91.1. TECHNIQUE: Multi planar reconstructions were performed. CONTRAST MATERIAL: None COMPARISON: CT CT CHEST WO from 09/05/2021 FINDINGS: CHEST: Images are somewhat degraded by motion artifact. LUNGS: Small nodular density in the left upper lobe exhibits minimal if any significant change from t he 09/05/2021 study. This does not appear to have increased in size. Subpleural increased markings laterally in left upper lobe are also again noted, slightly increased but possibly related to motion artifact. Mild increased benign-appearing markings noted in the lateral basal segment of the left lo wer lobe are unchanged. No pleural effusion. No new obvious right lung findings. No pleural effusi ons on either side. No new findings in the trachea and mainstem bronchi. MEDIASTINUM: There is no obvious hilar nor mediastinal adenopathy. Visualized thyroid unremarkable.No obvious axillary adenopathy CARDIAC: Mild cardiomegaly. No pericardial effusion.Caliber of the thoracic aorta is within normal l imits. VISUALIZED UPPER ABDOMEN:No significant findings. OSSEOUS: No significant osseous lesions.. IMPRESSION: 1. Allowing for the amount of respiratory motion artifact there is minimal if any significant change when compared to the prior CT scan of 09/05/2021. Left upper lobe findings as well as finding in the basal segment of the left lower lobe appear relatively stable. 2. No pleural effusions nor obvious intrathoracic adenopathy evident on this noninfused study. 3. RADIATION DOSE DELIVERED: 600.23mGy.cm Total DLP DATA REPOSITORY: All CT scans at this facility are submitted to the National Radiology Data Registry (NRDR) Dose Index Registry (DIR) with the [employer] (ACR). RADIATION OPTIMIZATION: All CT scans at this facility use at least one of these dose optimization te chniques: automated exposure control; mA and/or kV adjustment per patient size (includes targeted exa ms where dose is matched to clinical indication); or iterative reconstruction.
== END ==
PROVIDERS: PCP Nurse Practitioner; Visit Provider Student in an Organized Health Care Education/Training Program
DX: R91.1 Solitary pulmonary nodule (principal)
CPT/HCPCS: 71250

== ENCOUNTER 2022-05-17 04:05 | Outpatient (CLI) | payer MEDICARE, MEDICAID, SELFPAY ==
[2022-05-17 12:53] LABS: ALT 28 U/L (14-59); AST 17 U/L (15-37); Albumin 3.6 g/dL (3.4-5.0); Alkaline Phosphatase 102 U/L (46-116); Anion Gap 10.5 mmol/L (3-11); BUN 19 mg/dL (7-18); Bilirubin, Total 0.4 mg/dL (0.2-1.0); CO2 26.5 mmol/L (21.0-32.0); CREATININE 0.7 mg/dL (0.55-1.02); Calcium 9.7 mg/dL (8.5-10.1); Chloride 102 mmol/L (98-107); Glucose 112 mg/dL (74-106); Potassium 3.9 mmol/L (3.5-5.1); Sodium 139 mmol/L (136-145); Total Protein 7.9 g/dL (6.4-8.2)
[2022-05-17 13:13] LABS: Calculated LDL 136 mg/dL (<100); Cholesterol 211 mg/dL (<200); HDL Cholesterol 51 mg/dL (40-60); Triglyceride 123 mg/dL (<150)
== END 2022-05-17 04:06 | disposition home or self-care (01) ==
LOC: LOS 04:05
PROVIDERS: PCP Nurse Practitioner; Visit Provider Nurse Practitioner
DX: E11.9 Type 2 diabetes mellitus without complications (principal); E78.00 Pure hypercholesterolemia, unspecified; I26.99 Other pulmonary embolism without acute cor pulmonale; R07.89 Other chest pain
CPT/HCPCS: 36415; 80053; 80061

== ENCOUNTER → 2022-06-05 02:31 | Outpatient (CLI) | payer MEDICARE, MEDICAID, SELFPAY ==
--- NOTE | 2022-06-05 07:30 | DI.MAMMO_ITS ---
Exam(s) MAMMO SCREENING EXAM: MAMMO SCREENING CLINICAL HISTORY: screening, Z12.39 TECHNIQUE: Bilateral full field digital CC and MLO mammographic images were obtained with 3D tomosyn thesis and utilizing computer aided detection (CAD). COMPARISON: Available for comparison. FINDINGS: Masses/Architectural Distortion: None seen. Microcalcifications: No suspicious pleomorphic-type are seen. Skin Thickening/Nipple Retraction: None. IMPRESSION: 1. No significant interval change with no specific features of malignancy noted. 2. Unless there is more urgent need, screening mammography is recommended, as per [employer] guidelines. BI-RADS Category 1 - Negative Breast Density - Category B - Scattered areas of fibroglandular density Breast density category C or D implies that the patient has dense breast tissue. Dense breast tissue is very common and is not abnormal but dense breast tissue can make it harder to find cancer on a ma mmogram. Also, dense breast tissue may increase their breast cancer risk. This information about the result of the mammogram report was provided to the patient to raise their awareness. Use this report when you speak with the patient about their risks for breast cancer, which includes their family hist ory. At that time, you may recommend for more screening tests (Ultrasound or MRI) as they might be us eful based on their risk. A negative radiographic report should not delay biopsy if a dominant or clinically suspicious mass is present. Up to ten percent of cancers are not identified on mammography. A negative report may reinforce clinical impression. Adenosis and dense breasts may obscure an underlying neoplasm. False positive reports average 6 to 10%. Patient will receive a letter notifying them of these results.
== END ==
PROVIDERS: PCP Nurse Practitioner; Visit Provider Nurse Practitioner
DX: Z12.31 Encounter for screening mammogram for malignant neoplasm of breast (principal); R92.8 Other abnormal and inconclusive findings on diagnostic imaging of breast
CPT/HCPCS: 77063; 77067

== ENCOUNTER → 2022-07-04 13:48 | Outpatient (BNVA) | payer MEDICARE, MEDICAID, SELFPAY | PROVIDERS: PCP Nurse Practitioner; Referring Provider Student in an Organized Health Care Education/Training Program; Visit Provider Psychiatry & Neurology Neurology | DX: G21.11 Neuroleptic induced parkinsonism (principal) | CPT/HCPCS: 99214 ==

== ENCOUNTER → 2022-09-21 00:02 | Outpatient (CLI) | payer MEDICARE, MEDICAID, SELFPAY ==
--- NOTE | 2022-09-21 13:50 | DI.DEXA_ITS ---
Exam(s) XR DEXA BONE DENSITY W/WO CADE EXAM: XR DEXA BONE DENSITY W/WO CADE CLINICAL HISTORY: Routine screening Z78.0 MENOPAUSAL SCREENING FOR OSTEOPOROSIS TECHNIQUE: Routine DEXA evaluation of the lumbar spine, hip, or forearm. COMPARISON: Prior DEXA scan study of August 2015 FINDINGS: Performed on a HoloAffina[employer] unit. Lateral image: No compression fracture evident. Lumbar Spine total T-score: -0.6. Prior 2014 reading was -0.9 Hip total T-score:-1.1. Prior 2014 reading was -1.6. Independent reading at the level of the femoral neck yields a T-score of -2.1. Forearm total T-score: -2.8 IMPRESSION: Bone mineral density measures in the osteoporosis range. Fracture risk is high. Note: Any spine fracture indicates 5x risk for subsequent spine fracture and 2x risk for subsequent h ip fracture. World Health Organization criteria for BMD interpretation classify patients: Normal...... T- Score at or above -1.0 Osteopenic... T- Score between -1.0 and -2.5 Osteoporosis... T-Score at or below -2.5
== END ==
PROVIDERS: PCP Nurse Practitioner; Visit Provider Nurse Practitioner
DX: Z78.0 Asymptomatic menopausal state (principal); Z13.820 Encounter for screening for osteoporosis; M81.0 Age-related osteoporosis without current pathological fracture
CPT/HCPCS: 77080

== ENCOUNTER 2022-10-10 15:31 | Outpatient (REF) | payer MEDICARE, MEDICAID, SELFPAY ==
[2022-10-10 15:55] LABS: Anion Gap 6.5 mmol/L (3-11); BUN 26 mg/dL (7-18); CO2 30.5 mmol/L (21.0-32.0); CREATININE 0.9 mg/dL (0.55-1.02); Calcium 9.9 mg/dL (8.5-10.1); Chloride 104 mmol/L (98-107); Estimated GFR 67.92 (mL/min/1.73m2); Glucose 110 mg/dL (74-106); Potassium 4.4 mmol/L (3.5-5.1); Sodium 141 mmol/L (136-145)
[2022-10-10 16:23] LABS: Vitamin D 25 Total 33.8 ng/mL (30-100)
== END 2022-10-10 15:32 | disposition home or self-care (01) ==
LOC: LBN 15:31
PROVIDERS: PCP Nurse Practitioner; Visit Provider Nurse Practitioner
DX: M81.0 Age-related osteoporosis without current pathological fracture (principal); M85.88 Other specified disorders of bone density and structure, other site
CPT/HCPCS: 80048; 82306

== ENCOUNTER 2022-11-26 13:34 | Observation (INO) | payer MEDICARE, MEDICAID, SELFPAY ==
[2022-11-26] VITALS (56 sets, daily range): BP systolic 126–145; BP diastolic 45–80; PULSE 88–123; RESP 15–42; TEMP 36.8–37.2; O2SAT 87–98
--- NOTE | 2022-11-26 13:30 | RT.EKG_ITS ---
APPROVED REPORT Exam: Resting ECG Reason for Exam: chest pain Patient Location: E HR:108 bpm ECG Measurements Heart Rate 108 AXIS ND 119 P 67 QRSd 79 QRS 28 QT 336 T 83 QTc 451 Conclusion Sinus tachycardia...rate> [address] depression, lateral leads...ST <-0.07mV, I aVL V5 V6
--- NOTE | 2022-11-26 13:30 | DI.CT_ITS ---
Exam(s) CT CHEST PE CTA EXAM: CT CHEST PE CTA CLINICAL HISTORY: HX OF pe, CHEST PAIN, DC'D ELIQUIS. TECHNIQUE: Imaging Protocol: CT angiography of the chest was performed using pulmonary embolus iman col. Multi planar reconstructions were performed. CONTRAST MATERIAL: Intravenous: Omnipaque 350 Contrast volume: 100 cc COMPARISON: CT CT CHEST WO from 04/26/2022 FINDINGS: CHEST: Images degraded by motion artifact PULMONARY ARTERIES: There are no obvious intraluminal filling defects to suggest acute pulmonary embo li. LUNGS: There are no obvious confluent infiltrates nor evidence of pulmonary infarction.. There are no pleural effusions. MEDIASTINUM: There is no hilar nor mediastinal adenopathy. Visualized thyroid unremarkable. CARDIAC: Mild cardiomegaly. No pericardial effusion.Caliber of the thoracic aorta is within normal l imits. No obvious aortic dissection. There is no significant shift of the interventricular septum. PARTIALLY VISUALIZED UPPERMOST ABDOMEN: No obvious findings OSSEOUS: No significant osseous lesions.. IMPRESSION: 1. No evidence of obvious acute pulmonary emboli. No evidence of pulmonary infarction.No pleural eff usions. 2. No intrathoracic adenopathy evident. 3. Mild cardiomegaly. No pericardial effusion. No aortic dissection. RADIATION DOSE DELIVERED: 398.35mGy.cm Total DLP DATA REPOSITORY: All CT scans at this facility are submitted to the National Radiology Data Registry (NRDR) Dose Index Registry (DIR) with the [employer] (ACR). RADIATION OPTIMIZATION: All CT scans at this facility use at least one of these dose optimization te chniques: automated exposure control; mA and/or kV adjustment per patient size (includes targeted exa ms where dose is matched to clinical indication); or iterative reconstruction.
[2022-11-26 14:15] LABS: Abs Immature Grans 0.03 10^3/uL (0.0-0.06); Absolute Basophil Count 0.06 10^3/uL (0.0-0.2); Absolute Eosinophil Count 0.08 10^3/uL (0.0-0.7); Absolute Lymphocyte Count 1.63 10^3/uL (1.2-3.4); Absolute Monocyte Count 0.74 10^3/uL (0.1-0.8); Absolute Neutrophil Count 6.28 10^3/uL (1.2-6.7); Basophils % 0.7; Eosinophils % 0.9; HCT 42.8 % (36.0-46.0); HGB 13.7 g/dL (11.2-15.7); Immature Grans % 0.3; Lymphocytes % 18.5; MCH 28.9 pg (27.0-33.0); MCV 90 fL (80-95); MPV 10.8 fL (8.0-11.0); Monocytes % 8.4; Neutrophils % 71.2; Platelet Count 279 10^3/uL (130-400); RBC 4.74 10^6/uL (3.93-5.22); RDW 14.5 % (11.7-14.6); RDW-SD 47.9 fL; WBC 8.82 10^3/uL (4.4-10.8)
[2022-11-26 14:41] LABS: Lactate 1.4 mmol/L (0.6-1.4)
--- NOTE | 2022-11-26 14:45 | DI.RAD_ITS ---
Exam(s) XR CHEST 2V PA LATERAL EXAM: XR CHEST 2V PA LATERAL CLINICAL HISTORY: SHORTNESS OF BREATH TECHNIQUE: 2D digital imaging was performed of the chest. Two images were obtained. PA and lateral views were obtained. COMPARISON: CR XR PORTABLE CHEST AP from 03/03/2021 FINDINGS: MEDIASTINUM: Normal. HEART: Normal. PULMONARY VASCULATURE: Normal. LUNGS: Clear. PLEURAL SPACE: No pleural effusion or pneumothorax. BONE:Within normal limits for the patient's age. OTHER FINDINGS:Normal. IMPRESSION: No acute pulmonary findings. DATA REPOSITORY: RADIATION DOSE DELIVERED:
[2022-11-26] MEDS: Acetaminophen 325 MG TAB 650 MG PO (14:49)
[2022-11-26] MEDS: methylPREDNISolone SUCC 40 MG VIAL IVP (14:50)
--- NOTE | 2022-11-26 14:55 | ED.GENADUL_ITS ---
Discharge Plan Disposition Patient Disposition: Admit to [facility] Condition: Good Discharge Details Clinical Impression: Hypoxia Admit Date/Time: 11/26/22 21:41 Admit Provider: Ubaldo Price Attending Provider: Ubaldo Price Primary Care Provider: Faith Fischer ED Provider: Carlie Howard Discharge Data Discharge Date/Time-TO BE ENTERED AT DEPARTURE: 11/26/22 22:34 Medical Decision Making <KALEY Pride - Last Filed: 11/28/22 20:35> This 72-year-old female presents with report of chest pain that started last evening with mild shortness of breath. Denies fever or chills. Denies any calf pain or swelling. Denies known missed doses of Eliquis. States she saw pulmonology today and was sent here for pulmonary embolism work- up secondary to hypoxia and pleuritic chest pain Patient is at her cognitive baseline at this time her niece and guardian in the room Patient has not had known exposure to sick contacts, however fluid was ordered for further evaluation Patient has prior history of being allergic to IV contrast with reported hives, therefore premedication with Solu-Medrol was administered at 240, she will be stable for CTA of her chest at 640, she will need Benadryl 50 mg at 540 In the interim she will have diagnostic blood work, including lactate, COVID, portable chest to exclude acute pathology, Tylenol, fluids, albuterol nebulizer treatment, she is receiving supplemental oxygen which is new for her, secondary to hypoxia at 88 to 89% at rest Discharged to: BP, physician financial administrative assistant pending CTA and reevaluation Chest x-ray does not show evidence of acute abnormality per radiology i nterpretation my review Medical Records Medical records reviewed: Yes I reviewed the patient's medical records. Lab Data Lab results reviewed: Yes I reviewed the patient's lab results. <KALEY Alston - Last Filed: 11/26/22 22:34> This 72-year-old female presents with report of chest pain that started last evening with mild shortness of breath. Denies fever or chills. Denies any calf pain or swelling. Denies known missed doses of Eliquis. States she saw pulmonology today and was sent here for pulmonary embolism work- up secondary to hypoxia and pleuritic chest pain Patient is at her cognitive baseline at this time her niece and guardian in the room Patient has not had known exposure to sick contacts, however fluid was ordered for further evaluation Patient has prior history of being allergic to IV contrast with reported hives, therefore premedication with Solu-Medrol was administered at 240, she will be stable for CTA of her chest at 640, she will need Benadryl 50 mg at 540 In the interim she will have diagnostic blood work, including lactate, COVID, portable chest to exclude acute pathology, Tylenol, fluids, albuterol nebulizer treatment, she is receiving supplemental oxygen which is new for her, secondary to hypoxia at 88 to 89% at rest Discharged to: BP, physician financial administrative assistant pending CTA and reevaluation Chest x-ray does not show evidence of acute abnormality per radiology interpretation my review Care transitioned to myself from Melanie Davidson PA-C. Please see her initial note regarding initial presentation, history and exam. In brief, patient is a 72 year old female, accompanied by srinivasan who is her primary child care director. She presented for SOB and pleuritic CP. Hx of PE, anticoagulated with no missed doses. At the time I assumed care, CT pending. Hx of allergic reaction to dye, has received steroids, will receive Benadryl [address] Following contrast dye allergy recommendations, patient has had this historically and is done well once premedicated. Repeat troponin within is within normal limits. CT reviewed by radiologist FINDINGS: Limited due to respiratory motion artifact Pulmonary arteries:? No large pulmonary emboli. Aorta: No aortic aneurysm. No aortic dissection. Lungs:? Mild subsegmental atelectasis No consolidation. No masses. Pleural spaces: Unremarkable. No pneumothorax. No pleural effusion. Heart:? Mild cardiomegaly.? Coronary calcifications No pericardial effusion. Lymph nodes: No enlarged lymph nodes. Bones/joints: No acute fracture. Soft tissues: Unremarkable. IMPRESSION: No large pulmonary emboli observed Limited evaluation for small segmental and subsegmental pulmonary emboli as described due to respiratory motion artifact Spoke with patient and her niece regarding findings. She reports that the patient has been being evaluated by neurology for increased weakness. This weakness has made it so the patient has actually been difficulty with speech as well as swallowing and attributes this to her longtime psychiatric medications. She states that some of her psychiatric medications had changed. Patient has also had some pleuritic chest pain which she is not currently endorsing. Pain is worse with movement as well as deep inspiration. Lungs are clear. Normal cardiac exam. No lower extremity swelling appreciated. Reviewed recent note from Dr. Oneill. She was questioning if an epileptic induced parkinsonian is was associated with dysphagia and dysarthria likely from long-term with medications. However, they did not want to begin the carbidopa levodopa until the patient's mood was stable. Contacted patient's home day care provider, Elda at [phone], who has patient's medication list. This was updated. Of note, the patient's Seroquel was increased recently and it is now being taken nightly. She reported that the patient has continued to have voice of Nino in her head despite the change in medications. Trial the patient off of O2 and she continues to drop into the high 80s. Patient will need to be admitted for oxygen demand. Present DVT study and limited echo performed by emergency physician with no acute abnormality appreciated. Consult with Dr. Price, questioning if this could be associated with medication versus pleuritic pain causing some decreased respiratory drive. ABG obtained. Patient admitted for hypoxia of unclear etiology. While negative CTA, DVT, possible small PE. Also conisdered viral illness not tested for, possible weakness associated with psychiatric medications or other cause of pleurisy. Evaluated by at bedside. At the time of admission, stable condition on 3L NC., HPI <KALEY Pride - Last Filed: 11/28/22 20:35> General Date/Time Provider Initiated Documentation: 11/26/22 13:39 . HPI Narrative: This 72-year-old female with history of pulmonary embolism anticoagulated on Eliquis, hyperlipidemia, anxiety, PTSD history presents with report of acute onset of pleuritic chest pain and shortness of breath which started last evening. She denies any fever or chills. She denies known sick contacts. She denies any calf pain or swelling. She states that she has had similar symptoms in the past with pulmonary embolism. She has been taking her Eliquis regularly per patient. There is no change in mentation. She has not reportedly had fever at home. Patient denies any weakness. Related Data Home Medications Medication Instructions Recorded Confirmed sertraline 50 mg tablet 100 mg PO BID 07/16/19 11/26/22 diazepam 5 mg tablet (Valium) 2 mg PO BID 03/31/21 11/26/22 mirtazapine 30 mg tablet 30 mg PO HS 03/31/21 11/26/22 cholecalciferol (vitamin D3) 25 1,000 unit PO DAILY #90 tab-caps 12/04/21 11/26/22 mcg (1,000 unit) tablet apixaban 2.5 mg tablet 2.5 mg PO BID #180 tabs 06/05/22 11/26/22 risperidone 1 mg tablet (Risperdal) 5 mg PO BID 07/04/22 11/26/22 nitroglycerin 0.2 mg/hr 1 patch topical Q24H #30 patches 10/01/22 11/26/22 transdermal 24 hour patch atorvastatin 20 mg tablet 20 mg PO QHS #90 tabs 10/23/22 11/26/22 famotidine 40 mg tablet 1 tab QAM 11/26/22 11/26/22 quetiapine 50 mg tablet 50 tab QPM 11/26/22 11/26/22 Previous Rx's Medication Instructions Recorded cholecalciferol (vitamin D3) 25 1,000 unit PO DAILY #90 tab-caps 12/04/21 mcg (1,000 unit) tablet apixaban 2.5 mg tablet 2.5 mg PO BID #180 tabs 06/05/22 nitroglycerin 0.2 mg/hr 1 patch topical Q24H #30 patches 10/01/22 transdermal 24 hour patch atorvastatin 20 mg tablet 20 mg PO QHS #90 tabs 10/23/22 Allergies Allergy/AdvReac Type Severity Reaction Status Date / Time caffeine Allergy Unknown unknown Verified 11/26/22 13:06 Iodinated Contrast Media Allergy Unknown unknown Verified 11/26/22 13:06 [Iodinated Contrast- Oral and IV Dye] morphine Allergy Unknown unknown Verified 11/26/22 13:06 Penicillins Allergy Unknown unknown Verified 11/26/22 13:06 pravastatin AdvReac Mild diarrhea Verified 11/26/22 13:06 General Stated Complaint: Chest Pain PATEL: 2 Review of Systems <KALEY Pride - Last Filed: 11/28/22 20:35> All systems reviewed & are unremarkable except as noted in HPI and below PFSH <KALEY Pride - Last Filed: 11/28/22 20:35> All Active Problems (Updated 11/28/22 @ 14:14 by Casa Chu MD) On deep vein thrombosis (DVT) prophylaxis (Acute) Discharge planning issues (Acute) Pain (Acute) Hypoxia (Acute) Osteoporosis (Chronic) Dysphagia (Acute) Dysarthria (Acute) Parkinsonism (Acute) Muscle weakness (Acute) Pulmonary fibrosis (Acute) Pulmonary nodule 1 cm or greater in diameter (Acute) Right conjunctivitis (Acute) Colon cancer screening (Acute) Ear itching (Acute) Pulmonary embolism (Chronic) Chest pain (Acute) Pulmonary embolism (Chronic) Family history of stroke (Acute) Family history of DVT (Acute) Family history of pulmonary embolism (Acute) Facial droop (Chronic) Atypical chest pain (Acute) Chest pain (Acute) Hypoxia (Acute) Colon cancer screening declined (Acute) Mammogram declined (Acute) Internal derangement of left knee (Acute) Left knee pain (Acute) Abnormal auditory perception (Acute) Conjunctivitis (Acute) Impacted cerumen of both ears (Acute) Colonoscopy refused (Acute) Oropharyngeal dysphagia (Acute) 03/09/19 JOVANY Duran TMJ dysfunction (Acute) 03/09/19 JOVANY Duran Auditory hallucination (Chronic) Diabetes type 2, controlled (Chronic) High blood cholesterol (Chronic) Osteopenia (Acute 11/16/11) DEXA 10/2011 spine T-1.2, hip -1.5, forearm -2.3 08/2015 spine T-0.9, hip -1.6: FRAX 9.2/1.0% Intermittent diarrhea (Acute 04/06/16) Impaired fasting glucose (Acute 08/04/12) Hyperlipidemia (Acute 11/16/11) FRS 13% PCEq risk 5.8% LDL baseline 171 Headache (Acute 06/26/13) Ear itch (Acute 04/06/16) 03/09/19 JOVANY Duran. Dermatitis both ear canals Chest pain (Acute 06/26/13) CP of undetermined etiology Anxiety (Acute 08/04/12) Dr. Valenuzela Psychiatrist [facility] case management Rosi Anger reaction (Acute 10/17/16) Allergic rhinitis (Acute 11/16/11) Adjustment disorder, unspecified (Acute 10/30/16) Medical History Acute pulmonary embolism Anxiety Hyperlipemia Lung nodule < 6cm on CT Migraine PTSD (post-traumatic stress disorder) Surgical History Appendectomy History of hysterectomy Family History Mother Heart disease Father Heart disease CHF Sister No problems noted. Social History Smoking/Tobacco Use Status: Never Smoking risk assessment performed?: Yes Alcohol Intake: never Drug use: Never Substance use type: does not use Caregiver/Support person: Yes Household members: caregiver and other Details: Arlene is caregiver, Arlene's and another client Housing: house Number of Children: 0 Communication Needs: Corrective Lenses current occupation: disabled How often do you talk on the phone with friends or family?: three or more times per week Panel score (0-1 are the most socially isolated patients): 1 What type of physical activity do you participate in: walking Duration: 15-30 minutes/day Frequency: daily Seatbelt use: always Drive intox or ride w/intox lease purchase driver: No Working smoke detector in home: Yes Fire extinguisher in home: Yes Carbon monox detector in home: Yes Firearms in home: No Do you feel safe at home: Yes Do you feel safe in your relationship?: Yes Exam <KALEY Pride - Last Filed: 11/28/22 20:35> Const General: cooperative, comfortable and no acute distress Orientation: alert and oriented x3 HENMT Throat: uvula midline Other: DRY MUCOUS MEMBRANES Eyes Sclera: sclerae normal Resp Effort & Inspection: normal respiratory effort Auscultation: clear to auscultation bilaterally Cardio Rate: regular rate Rhythm: regular rhythm GI Inspection: normal to inspection Skin General skin exam: no rashes or lesions noted Neuro General: patient alert and patient oriented x3 Extrem General: normal to inspection Course <KALEY Pride - Last Filed: 11/28/22 20:35> Vital Signs Vital signs: Vital Signs Temperature 36.8 C 11/26/22 13:36 Pulse 123 H 11/26/22 13:36 Respiratory Rate 20 11/26/22 13:36 Blood Pressure 145/80 H 11/26/22 13:36 Pulse Oximetry 91 L 11/26/22 13:36 Temperature 36.8 C 11/26/22 13:36 Temperature Source Skin 11/26/22 13:36 Pulse 123 H 11/26/22 13:36 Respiratory Rate 18 11/26/22 13:52 Respiratory Effort Non-Labored 11/26/22 13:52 Respiratory Depth Normal 11/26/22 13:52 Respiratory Pattern Normal 11/26/22 13:52 Blood Pressure 145/80 H 11/26/22 13:36 Blood Pressure Position Sitting 11/26/22 13:36 Pulse Oximetry 96 11/26/22 14:38 Oxygen Delivery Method Nasal Cannula 11/26/22 14:38 Oxygen Flow Rate 4 11/26/22 14:38 Pain Level 10 11/26/22 13:52 Lab/Test Results Lab/Test Results: Laboratory Tests Range/Units 11/26/22 11/26/22 14:00 14:32 WBC (4.4-10.8) 10^3/uL 8.82 RBC (3.93-5.22) 10^6/uL 4.74 Hgb (11.2-15.7) g/dL 13.7 Hct (36.0-46.0) % 42.8 MCV (80-95) fL 90 MCH (27.0-33.0) pg 28.9 MCHC (32.0-36.0) % 32.0 RDW (11.7-14.6) % 14.5 Plt Count (130-400) 10^3/uL 279 MPV (8.0-11.0) fL 10.8 Immature Gran % 0.3 Neutrophils % 71.2 Lymphocytes % 18.5 Monocytes % 8.4 Eosinophils % 0.9 Basophils % 0.7 Nucleated RBC % (0.0-0.3) % 0.0 Absolute Neutrophils (1.2-6.7) 10^3/uL 6.28 Absolute Lymphocytes (1.2-3.4) 10^3/uL 1.63 Absolute Monocytes (0.1-0.8) 10^3/uL 0.74 Absolute Eosinophils (0.0-0.7) 10^3/uL 0.08 Absolute Basophils (0.0-0.2) 10^3/uL 0.06 VBG Lactate (0.6-1.4) mmol/L 1.4 Sign Out <KALEY Pride - Last Filed: 11/28/22 20:35> Sign Out Data: Sign Out Comment: Pending CTA at 6:40 PM, albuterol neb, IV fluids, IV Tylenol, and reassessment Last updated by Melanie Davidson PA at 11/26/22 16:05
[2022-11-26 15:06] LABS: ALT 38 U/L (14-59); AST 29 U/L (15-37); Albumin 3.7 g/dL (3.4-5.0); Alkaline Phosphatase 120 U/L (46-116); Anion Gap 6.5 mmol/L (3-11); BUN 20 mg/dL (7-18); Bilirubin, Total 0.3 mg/dL (0.2-1.0); CO2 29.5 mmol/L (21.0-32.0); CREATININE 0.9 mg/dL (0.55-1.02); Calcium 9.7 mg/dL (8.5-10.1); Chloride 103 mmol/L (98-107); Estimated GFR 67.92 (mL/min/1.73m2); Glucose 117 mg/dL (74-106); NT-proBNP 109 pg/mL (<300); Potassium 4.4 mmol/L (3.5-5.1); Sodium 139 mmol/L (136-145); Total Protein 8.2 g/dL (6.4-8.2); Troponin I < 50 ng/L (<or=60)
[2022-11-26] MEDS: Lactated Ringers 500 ML IV (16:00)
[2022-11-26 16:31] LABS: COVID-19 PCR Negative (Negative); Influenza A PCR Negative (Negative); Influenza B PCR Negative (Negative); RSV PCR Negative (Negative)
[2022-11-26 16:33] LABS: Source Nasopharynx
[2022-11-26 17:20] LABS: Troponin I < 50 ng/L (<or=60)
[2022-11-26] MEDS: diphenhydrAMINE 50 MG/ML VIAL IVP (17:43)
[2022-11-26] MEDS: Normal Saline - Diluent 50 ML VIAL IJ (18:46)
[2022-11-26] MEDS: Omnipaque 350 MG/ML 100 ML BTL IJ (18:47)
[2022-11-26] MEDS: Normal Saline Flush 10 ML SYR IVP ×2 (18:49→23:24)
--- NOTE | 2022-11-26 19:13 | DI.VRAD_ITS ---
PROCEDURE INFORMATION: Exam: CTA Chest With Contrast Exam date and time: 11/26/2022 6:54 PM Age: 72 years old Clinical indication: Other: HX of pe, chest pain, dc'd eliquis; Additional info: PT. Premediated per protocol in er; Prior reaction of hives; PT. Showed no sign of reaction in di. TECHNIQUE: Imaging protocol: Computed tomographic angiography of the chest with contrast. 3D rendering (Not supervised by radiologist): MIP and/or 3D reconstructed images were created by the technologist. Contrast material: OMNIPAQUE 350; Contrast volume: 100 ml; Contrast route: INTRAVENOUS (IV); COMPARISON: CT CHEST PE CTA 03/03/2021 9:33 PM FINDINGS: Limited due to respiratory motion artifact Pulmonary arteries: No large pulmonary emboli. Aorta: No aortic aneurysm. No aortic dissection. Lungs: Mild subsegmental atelectasis No consolidation. No masses. Pleural spaces: Unremarkable. No pneumothorax. No pleural effusion. Heart: Mild cardiomegaly. Coronary calcifications No pericardial effusion. Lymph nodes: No enlarged lymph nodes. Bones/joints: No acute fracture. Soft tissues: Unremarkable. IMPRESSION: No large pulmonary emboli observed Limited evaluation for small segmental and subsegmental pulmonary emboli as described due to respiratory motion artifact Dictated and Authenticated by: Bao Stark MD. Ordering:ROYER Navarro MD
[2022-11-26 20:41] LABS: BE 3 mmol/L (-2-3); HCO3 28 mmol/L (22-26); pCO2 44 mmHg (35-45); pH 7.41 (7.35-7.45); pO2 53 mmHg (80-105); sO2 87 % (95-98); tCO2 25 mmol/L (23-27)
--- NOTE | 2022-11-26 21:13 | W.PM.HP.N ---
Date of service: 11/26/22 Time of Service: 21:13 Assessment and Plan Assessment and plan (1) SOB (shortness of breath): Status: Acute Assessment and plan: CP and SOB with new hypoxia and inappropriately normal pCO2 (ie, failure of compensatory hyperventialtion). Differential diagnosis here would include DOAC failure with recurrent PE (again note suboptimal CTA); non-specific pleurisy with restrictive defect at level of chest wall; global weakness with similar ventilatory limitation (though this would at most be contributory as it would not explain the CP), and as yet inapparent evolving pulmonary event. I think the potentially most serious (though not necessarily most likely) possibility is recurrent PE due to Eliquis failure and until this is sorted out I think there is wisdom in empirically beginning heparin. Would then consider V/Q scan or try repeating CTA, and LE U/S would also be helpful. In meantime will send out drug levels and anti factor X-a activity. Will continue supplemental O2 and will consult Pulmonary. History of Present Illness History of Present Illness Chief Complaint: CP, SOB Narrative: 72 female with h/o pulmonary fibrosis secondary to repeated aspirations, h/o multiple DVT/PE, on exterminator termite Eliquis. Seen in Pulmonary clinic today for followup and was sent to ER due to report of one day of pleuritic CP and SOB (per guardian this was described as similar to prior episodes of PE). In ER eval;uation of note for initial tachycardia 120 and O2 sats in high 80s. Low 90s on 2L NC. Patient was given updraft for unknown reasons, there is no report of wheezing, and no h/o such. She was also given steroids, but as pre-treatment for CTA. CTA is read out as suboptimal due to motion artefact but no large vessel PE. Baseline fibrosis noted. CXR negative. EKG without acute changes and troponoin x 2 negative. I was called for possible admission at this point and requested an ABG. ABG was difficult stick, pH 7.41, pCO2 44, O2 53 (87%). At present patient states she is continuing to experience bot CP and SOB, though at this time she describes the pain as a pressure (guardian confirms that this was initially described as sharp and of pleuritic quality). Review of Systems Narrative: per HPI PFSH All Active Problems (Updated 11/26/22 @ 21:33 by Ubaldo Price MD) SOB (shortness of breath) (Acute) Osteoporosis (Chronic) Dysphagia (Acute) Dysarthria (Acute) Parkinsonism (Acute) Muscle weakness (Acute) Aspiration into airway (Acute) Pulmonary fibrosis (Acute) Pulmonary nodule 1 cm or greater in diameter (Acute) Right conjunctivitis (Acute) Colon cancer screening (Acute) Ear itching (Acute) Pulmonary embolism (Chronic) Chest pain (Acute) Pulmonary embolism (Chronic) Family history of stroke (Acute) Family history of DVT (Acute) Family history of pulmonary embolism (Acute) Facial droop (Chronic) Atypical chest pain (Acute) Chest pain (Acute) Hypoxia (Acute) Colon cancer screening declined (Acute) Mammogram declined (Acute) Internal derangement of left knee (Acute) Left knee pain (Acute) Abnormal auditory perception (Acute) Conjunctivitis (Acute) Impacted cerumen of both ears (Acute) Colonoscopy refused (Acute) Oropharyngeal dysphagia (Acute) 03/09/19 JOVANY Duran TMJ dysfunction (Acute) 03/09/19 JOVANY Duran Auditory hallucination (Chronic) Diabetes type 2, controlled (Chronic) High blood cholesterol (Chronic) Osteopenia (Acute 11/16/11) DEXA 10/2011 spine T-1.2, hip -1.5, forearm -2.3 08/2015 spine T-0.9, hip -1.6: FRAX 9.2/1.0% Intermittent diarrhea (Acute 04/06/16) Impaired fasting glucose (Acute 08/04/12) Hyperlipidemia (Acute 11/16/11) FRS 13% PCEq risk 5.8% LDL baseline 171 Headache (Acute 06/26/13) Ear itch (Acute 04/06/16) 03/09/19 JOVANY Duran. Dermatitis both ear canals Chest pain (Acute 06/26/13) CP of undetermined etiology Anxiety (Acute 08/04/12) Dr. Valenzuela Psychiatrist [place] case management Rosi Anger reaction (Acute 10/17/16) Allergic rhinitis (Acute 11/16/11) Adjustment disorder, unspecified (Acute 10/30/16) Medical History Acute pulmonary embolism Anxiety Hyperlipemia Lung nodule < 6cm on CT Migraine PTSD (post-traumatic stress disorder) Surgical History Appendectomy History of hysterectomy Family History Mother Heart disease Father Heart disease CHF Sister No problems noted. Social History Smoking/Tobacco Use Status: Never Smoking risk assessment performed?: Yes Alcohol Intake: never Drug use: Never Substance use type: does not use Caregiver/Support person: Yes Household members: caregiver and other Details: Arlene is caregiver, Arlene's and another client Housing: house Number of Children: 0 Communication Needs: Corrective Lenses current occupation: disabled How often do you talk on the phone with friends or family?: three or more times per week Panel score (0-1 are the most socially isolated patients): 1 What type of physical activity do you participate in: walking Duration: 15-30 minutes/day Frequency: daily Seatbelt use: always 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 Working smoke detector in home: Yes Fire extinguisher in home: Yes Carbon monox detector in home: Yes Firearms in home: No Do you feel safe at home: Yes Do you feel safe in your relationship?: Yes Meds Allergies and Home Medications Allergies Allergy/AdvReac Type Severity Reaction Status Date / Time caffeine Allergy Unknown unknown Verified 11/26/22 13:06 Iodinated Contrast Media Allergy Unknown unknown Verified 11/26/22 13:06 [Iodinated Contrast- Oral and IV Dye] morphine Allergy Unknown unknown Verified 11/26/22 13:06 Penicillins Allergy Unknown unknown Verified 11/26/22 13:06 pravastatin AdvReac Mild diarrhea Verified 11/26/22 13:06 Home Medications Medication Instructions Recorded Confirmed Type sertraline 50 mg tablet 100 mg PO BID 07/16/19 11/26/22 History diazepam 5 mg tablet (Valium) 2 mg PO BID 03/31/21 11/26/22 History mirtazapine 30 mg tablet 30 mg PO HS 03/31/21 11/26/22 History cholecalciferol (vitamin D3) 25 1,000 unit PO DAILY #90 tab-caps 12/04/21 11/26/22 Rx mcg (1,000 unit) tablet apixaban 2.5 mg tablet 2.5 mg PO BID #180 tabs 06/05/22 11/26/22 Rx risperidone 1 mg tablet (Risperdal) 5 mg PO BID 07/04/22 11/26/22 History nitroglycerin 0.2 mg/hr 1 patch topical Q24H #30 patches 10/01/22 11/26/22 Rx transdermal 24 hour patch atorvastatin 20 mg tablet 20 mg PO QHS #90 tabs 10/23/22 11/26/22 Rx famotidine 40 mg tablet 1 tab QAM 11/26/22 11/26/22 History quetiapine 50 mg tablet 50 tab QPM 11/26/22 11/26/22 History Exam Narrative Exam Narrative: 137/62, 88, 36.8, 25, 94% 3L (during visit sat 89-90 on 2L, I adjusted up to 3L). HEENT atraumatic; neck supple; lungs clear; heart RRR, distant; abdomen soft and NT; extremities w/o edema, calves NT; neuro Ox3, moves all 4s, roughly 4/5 strength throughout Results Labs Result diagrams: 11/26/22 14:00 11/26/22 14:32 Labs: Laboratory Results - last 24 hr 11/26/22 11/26/22 11/26/22 14:00 14:32 14:32 WBC 8.82 RBC 4.74 Hgb 13.7 Hct 42.8 MCV 90 MCH 28.9 MCHC 32.0 RDW 14.5 Plt Count 279 MPV 10.8 Immature Gran % 0.3 Neutrophils % 71.2 Lymphocytes % 18.5 Monocytes % 8.4 Eosinophils % 0.9 Basophils % 0.7 Nucleated RBC % 0.0 Absolute Neutrophils 6.28 Absolute Lymphocytes 1.63 Absolute Monocytes 0.74 Absolute Eosinophils 0.08 Absolute Basophils 0.06 ABG Sample Site ABG pH ABG pCO2 ABG pO2 ABG HCO3 ABG Total CO2 ABG O2 Saturation ABG Base Excess VBG Lactate 1.4 Sodium 139 Potassium 4.4 Chloride 103 Carbon Dioxide 29.5 Anion Gap 6.5 BUN 20 H Creatinine 0.9 Est GFR (CKD-EPI 2020) 67.92 Glucose 117 H Calcium 9.7 Total Bilirubin 0.3 AST 29 ALT 38 Alkaline Phosphatase 120 H Troponin I < 50 NT-Pro-B Natriuret Pep 109 Total Protein 8.2 Albumin 3.7 COVID-19 Source SARS-CoV-2 (PCR) Influenza Type A (PCR) Influenza Type B (PCR) RSV (PCR) 11/26/22 11/26/22 11/26/22 15:44 16:52 20:38 WBC RBC Hgb Hct MCV MCH MCHC RDW Plt Count MPV Immature Gran % Neutrophils % Lymphocytes % Monocytes % Eosinophils % Basophils % Nucleated RBC % Absolute Neutrophils Absolute Lymphocytes Absolute Monocytes Absolute Eosinophils Absolute Basophils ABG Sample Site Unknown ABG pH 7.41 ABG pCO2 44 ABG pO2 53 L ABG HCO3 28 H ABG Total CO2 25 ABG O2 Saturation 87 L ABG Base Excess 3 VBG Lactate Sodium Potassium Chloride Carbon Dioxide Anion Gap BUN Creatinine Est GFR (CKD-EPI 2020) Glucose Calcium Total Bilirubin AST ALT Alkaline Phosphatase Troponin I < 50 NT-Pro-B Natriuret Pep Total Protein Albumin COVID-19 Source Nasopharynx SARS-CoV-2 (PCR) Negative Influenza Type A (PCR) Negative Influenza Type B (PCR) Negative RSV (PCR) Negative Last Vital Signs Temp 36.8 C 11/26/22 13:36 Pulse 88 11/26/22 18:46 Resp 25 H 11/26/22 19:50 BP 137/62 11/26/22 18:46 Pulse Ox 94 11/26/22 19:50 Time Spent Time spent with Patient: 55-74 minutes Time was spent: preparing to see the patient(eg.review tests), obtaining and/or reviewing separately otained hiistory, ordering medications,tests, procedures, referring, communicating with other health child care associate teacher and indepentently interpreting results
[2022-11-26 22:07] LABS: INR 1.1 (0.9-1.1); PTT Activated 25.3 sec (21.0-27.5); Prothrombin Time 10.8 sec (9.3-11.0)
[2022-11-26] MEDS: Atorvastatin 20 MG TAB PO (23:24)
[2022-11-26] MEDS: Enoxaparin 80 MG/0.8 ML SYR SC (23:24)
[2022-11-27] VITALS (8 sets, daily range): BP systolic 110–138; BP diastolic 57–83; PULSE 44–88; RESP 16–24; TEMP 36.1–36.8; O2SAT 93–98
--- NOTE | 2022-11-27 | DI.US_ITS ---
APPROVED REPORT EXAM: Comprehensive 2D, Doppler, and color-flow Echocardiogram Patient Location: In-Patient Room/Bed: [address] E[address] Supervisor: Radha Valdovinos RDCS (AE) Indications: Pleurisy, SOB Other Information Study Quality: Adequate Conclusion Normal left ventricular wall thickness and chamber size. Estimated ejection fraction is 55%. Wall m otion is normal Right ventricle is grossly normal in size and systolic function Both atria are normal in size There is no structural or hemodynamically significant valvular disease Estimated right ventricular systolic pressure is 31 mmHg There is no pericardial effusion Wall motion Left Ventricle The left ventricle is normal size. The left ventricular systolic function is normal. The left ventric ular ejection fraction is within the normal range. There is normal left ventricular wall thickness. T here is normal LV segmental wall motion. There is no ventricular septal defect visualized. LVEF is 55 %. Right Ventricle Right ventricle is grossly normal in size. Right ventricular systolic function is grossly normal. The RVSP is 30.6_ mmHg. Atria The left atrium size is normal. The right atrium size is normal. The interatrial septum is intact wit h no evidence for an atrial septal defect. Aortic Valve The aortic valve is normal in structure. Aortic valve is trileaflet. There is no aortic valvular sten osis. No aortic regurgitation is present. Mitral Valve The mitral valve is normal in structure. No evidence of mitral valve stenosis. Trace mitral regurgita tion. Tricuspid Valve The tricuspid valve is normal in structure. There is no tricuspid valve stenosis. Trace tricuspid reg urgitation. Pulmonic Valve The pulmonary valve is normal in structure. There is no pulmonic valvular stenosis. There is no pulmo terra valvular regurgitation. Great Vessels The aortic root is normal in size. The ascending aorta is normal in size. Aortic arch is not well vis ualized. IVC is normal in size and collapses >50% with inspiration. Pericardium There is no pericardial effusion. 2D Dimensions IVSD d PLAX 0.87 cm F: 0.6-1.0 LV Vol A2C d MOD 79.6 mL LVPW d PLAX 0.84 cm F: 0.6 - 1.0 LV Vol A4C d MOD 68.6 mL LVID d PLAX 4.06 cm F: 3.8 - 5.2 LA vol/ BSA A2C s A-L 25.4 mL/m2 LVDs 2.95 cm F: 2.2 - 3.5 LA vol/ BSA A4C s A-L 15.9 mL/m2 Ao Root d 2.65 cm F: 2.7 - 3.3 LA Vol/ BSA Biplane s A-L 21.7 mL/m2 Ao Asc Diam d 2.83 cm F: 2.3 - 3.1 LA Area A4C s MOD 12.57 cm2 LV EF Teichholz 52.0 % LA Area A2C s MOD 17.16 cm2 LVEF (William's) 55.87 % F: 54 - 74 LV EF A4C MOD 55.7 % LV Volume 59.91 mL F: 46 - 106 LV EF A2C MOD 55.2 % LV Volume Index 34.23 mL/m2 F: 29 - 61 LV EF Biplane MOD 55.9 % LV Vol Biplane MOD 76.3 mL SV 42.61 mL FS 26.25 % SV Index 24.34 mL/m2 M-Mode TAPSE 2.09 cm (M/F) >1.7 LV Diastology MV E' medial 0.077 (>0.07 m/s) E/A Ratio 0.7 LV E/e MED 8.15 (<14) MV E Vmax 0.63 (0.4-1.3 m/s) MV E' lateral 0.064 (>0.1 m/s) MV A Vmax 0.85 (0.4-1.3 m/s) LV E/e LAT 9.85 (<14) MV E/A Ratio 0.72 MV E/E' medial 8.16 MV E/E' lateral 9.88 Aortic Valve LVOT Area 2.59 cm2 AoV Area Vmax 2.03 cm2 LVOT Vmax 1.06 m/s AoV Area/ BSA (Vmax) 1.16 cm2/m2 LVOT Mean Beto. 0.65 m/s YAO Mean Beto. 1.81 cm2 LVOT Peak Grad 4.5 mmHg YAO Mean Beto. Index 1.03 cm2/m2 LVOT Mean Grad 2.1 mmHg LVOT VTI 0.227 m LVOT Diam s 1.80 cm AoV Vmax 1.36 m/s Velocity Ratio 0.78 AoV Mean Beto. 0.94 m/s AoV Peak Grad 7.3 mmHg LVOT SV 58.83 mL AoV Mean Grad 3.9 mmHg AoV VTI 0.275 m AoV Area VTI 2.14 cm2 AoV Area/ BSA (VTI) 1.22 cm/m2 Mitral Valve MV DT 225 (160-240 msec) MV PHT 65 msec MV Area PHT 3.37 cm2 MV VTI 0.253 m MV Area VTI 2.33 (4.0-6.0 cm2) Pulmonary Valve PV Vmax 1.02 (0.5-1.5 m/s) RVOT Peak Gr. 2.08 mmHg PV Peak Grad 4.2 mmHg RVOT Mean Gr. 1.15 mmHg PV Mean Grad 2.2 mmHg RVOT VTI 0.159 m PV VTI 0.230 m RVOT Vmax 0.72 m/s Tricuspid Valve TR Peak Grad 27.6 mmHg TR Vmax 2.63 m/s RA Pressure 3.00 mmHg RVSP (TR) 30.6 mmHg
[2022-11-27] MEDS: Sertraline 50 MG TAB 100 MG PO ×2 (03:00→19:27)
[2022-11-27] MEDS: Mirtazapine 15 MG TAB 30 MG PO (03:06)
--- NOTE | 2022-11-27 07:00 | PUCON_ITS ---
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 Her CT does not show a PE and her cardiac work up is negative thus far. Her vital signs have been stable. I would like to assess for a pericardial effusion via echo and I have added a CRP. She does have very mild right pleural thickening, but it looks similar to prior scans. It is possible her pleurisy is simply due to an aspiration event resulting in pleural inflammation from an adjacent caustic event. A VQ scan could be used to feel more confident about the negative CTA since the study was no ideal (despite an abnormal CXR). If her echo returns normal, then I would simply recommend a prednisone trial to see if this improves her pain. Pleurisy - prednisone 20mg for 7 days, 10mg for 4 days, 5mg for 3 days - echo ordered - added CRP to labs h/o PE - D-dimer - VQ scan or DVT study if D-dimer positive History of Present Illness Narrative: This is a 72 yo with pulmonary fibrosis from aspiration and unprovoked bilateral small PE's and who is on life long Eliquis who I saw in clinic yesterday and sent to the Ed due to chest pain and shortness of breath. The chest pain was atypical for a cardiac etiology, but given the patients history and her description of the pain as the same as when she was previously diagnosed with P E, we sent her to the ED for assessment. Her CT scan did not find a PE (although not an ideal study) and her cardiac work up has been negative thus far. Her chest CT again finds a mildly thickened right pleura, but this is unchanged from her previous scan. She was placed on some oxygen yesterday, but has no longer needed this. I have previously screened her for autoimmune disease, which was negative. She tells me she had a rough night. She says she wears a nitro patch was was supposed to be changed yesterday but it has not been changed. She does still have pleurtic chest pain that has not changed since yesterday. Review of Systems All systems reviewed & are unremarkable except as noted in HPI and below PFSH All Active Problems (Updated 11/27/22 @ 07:08 by Verona Francois MD) Pleurisy (Acute) Hypoxia (Acute) SOB (shortness of breath) (Acute) Osteoporosis (Chronic) Dysphagia (Acute) Dysarthria (Acute) Parkinsonism (Acute) Muscle weakness (Acute) Aspiration into airway (Acute) Pulmonary fibrosis (Acute) Pulmonary nodule 1 cm or greater in diameter (Acute) Right conjunctivitis (Acute) Colon cancer screening (Acute) Ear itching (Acute) Pulmonary embolism (Chronic) Chest pain (Acute) Pulmonary embolism (Chronic) Family history of stroke (Acute) Family history of DVT (Acute) Family history of pulmonary embolism (Acute) Facial droop (Chronic) Atypical chest pain (Acute) Chest pain (Acute) Hypoxia (Acute) Colon cancer screening declined (Acute) Mammogram declined (Acute) Internal derangement of left knee (Acute) Left knee pain (Acute) Abnormal auditory perception (Acute) Conjunctivitis (Acute) Impacted cerumen of both ears (Acute) Colonoscopy refused (Acute) Oropharyngeal dysphagia (Acute) 03/09/19 JOVANY Duran TMJ dysfunction (Acute) 03/09/19 JOVANY Duran Auditory hallucination (Chronic) Diabetes type 2, controlled (Chronic) High blood cholesterol (Chronic) Osteopenia (Acute 11/16/11) DEXA 10/2011 spine T-1.2, hip -1.5, forearm -2.3 08/2015 spine T-0.9, hip -1.6: FRAX 9.2/1.0% Intermittent diarrhea (Acute 04/06/16) Impaired fasting glucose (Acute 08/04/12) Hyperlipidemia (Acute 11/16/11) FRS 13% PCEq risk 5.8% LDL baseline 171 Headache (Acute 06/26/13) Ear itch (Acute 04/06/16) 03/09/19 JOVANY Duran. Dermatitis both ear canals Chest pain (Acute 06/26/13) CP of undetermined etiology Anxiety (Acute 08/04/12) Dr. Valenzuela Psychiatrist [facility] case management Rosi Anger reaction (Acute 10/17/16) Allergic rhinitis (Acute 11/16/11) Adjustment disorder, unspecified (Acute 10/30/16) Medical History Acute pulmonary embolism Anxiety Hyperlipemia Lung nodule < 6cm on CT Migraine PTSD (post-traumatic stress disorder) Surgical History Appendectomy History of hysterectomy Family History Mother Heart disease Father Heart disease CHF Sister No problems noted. Social History Smoking/Tobacco Use Status: Never Smoking risk assessment performed?: Yes Alcohol Intake: never Drug use: Never Substance use type: does not use Caregiver/Support person: Yes Household members: caregiver and other Details: Arlene is caregiver, Arlene's and another client Housing: house Number of Children: 0 Communication Needs: Corrective Lenses current occupation: disabled How often do you talk on the phone with friends or family?: three or more times per week Panel score (0-1 are the most socially isolated patients): 1 What type of physical activity do you participate in: walking Duration: 15-30 minutes/day Frequency: daily Seatbelt use: always Drive 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 Working smoke detector in home: Yes Fire extinguisher in home: Yes Carbon monox detector in home: Yes Firearms in home: No Do you feel safe at home: Yes Do you feel safe in your relationship?: Yes Visit Medication and Allergies Active Medications Generic Name Dose Route Start Last Admin Trade Name Freq PRN Reason Stop Dose Admin Acetaminophen 650 mg 11/27/22 02:52 Acetaminophen 325 Mg Tab PO Q4H PRN PRN Al Hydrox/Mg Hydrox/Simethicone 30 ml 11/27/22 02:52 Mylanta Suspension 30 Ml Cup PO Q4H PRN PRN Atorvastatin Calcium 20 mg 11/27/22 03:00 11/27/22 02:46 Atorvastatin 20 Mg Tab PO Not Given QPM ALISTAIR Cholecalciferol 1,000 units 11/27/22 08:30 Cholecalciferol (Vitamin D3) 1,000 Unit Tab PO DAILY ALISTAIR Diazepam 2 mg 11/27/22 03:00 11/27/22 04:50 Diazepam 5 Mg Tab PO Not Given 0700,1999 ALISTAIR Dimethicone/Zinc Oxide 0 gm 11/26/22 21:41 Floyd Protect Cream 142 Gm Tube TP PRN PRN Enoxaparin Sodium 80 mg 11/26/22 23:00 11/26/22 23:24 Enoxaparin 80 Mg/0.8 Ml Syr SC 80 mg 1000,2200 ALISTAIR Administration Famotidine 40 mg 11/27/22 08:30 Famotidine 20 Mg Tab PO DAILY ALISTAIR Iohexol 100 ml 11/26/22 19:00 11/26/22 18:47 Omnipaque 350 Mg/Ml 100 Ml Btl IJ 12/26/22 23:59 100 ml DIRECTED ALISTAIR Administration Mirtazapine 30 mg 11/27/22 03:00 11/27/22 03:06 Mirtazapine 15 Mg Tab PO 30 mg HS ALISTAIR Administration Miscellaneous 2 each 11/27/22 16:00 Patch Removal TP Q24H ALISTAIR Nitroglycerin 0.2 mg 11/27/22 04:00 Nitroglycerin 0.1 Mg Patch TD Q24H ALISTAIR Quetiapine Fumarate 50 mg 11/27/22 20:00 Quetiapine 50 Mg Tab PO QPM ALISTAIR Risperidone 5 mg 11/27/22 03:00 11/27/22 04:50 Risperidone 1 Mg Tab PO Not Given BID ALISTAIR Sertraline HCl 100 mg 11/27/22 03:00 11/27/22 03:00 Sertraline 50 Mg Tab PO 100 mg BID ALISTAIR Administration Sodium Chloride 50 ml 11/26/22 19:00 11/26/22 18:46 Normal Saline - Diluent 50 Ml Vial IJ 50 ml .FOR DI USE ALISTAIR Administration Sodium Chloride 0 ml 11/26/22 18:49 11/26/22 23:24 Normal Saline Flush 10 Ml Syr IVP 10 ml PRN PRN Administration Allergies caffeine Allergy (Unknown, Verified 11/26/22 13:06) unknown Iodinated Contrast Media [Iodinated Contrast- Oral and IV Dye] Allergy (Unknown, Verified 11/26/22 13:06) unknown morphine Allergy (Unknown, Verified 11/26/22 13:06) unknown Penicillins Allergy (Unknown, Verified 11/26/22 13:06) unknown pravastatin Adverse Reaction (Mild, Verified 11/26/22 13:06) diarrhea Exam Narrative Exam Narrative: Gen: NAD, normal respiratory effort, well-nourished HENT: PERRL, nasal turbinates normal without erythema or inflammation, moist oral mucosa, Mallampati 2, No LAD or JVD Chest: No respiratory distress, normal appearance of chest, clear to auscultation bilaterally, no crackles or wheezes, normal inspiratory effort Heart: regular rate and rhythym, no murmurs, rubs or gallops Abdomen: Non-distended, soft, non tender Extremities: No clubbing, edema, cyanosis, rashes Neuro: AAOx3 , non focal Psych: cooperative, appropriate mental affect Results Last Vital Signs Temp 36.7 C 11/27/22 02:17 Pulse 83 11/27/22 02:17 Resp 16 11/27/22 02:17 BP 117/70 11/27/22 02:17 Pulse Ox 93 11/27/22 02:17 Labs Result diagrams: 11/26/22 14:00 11/26/22 14:32 Labs: Laboratory Results - last 24 hr 11/26/22 11/26/22 11/26/22 14:00 14:32 14:32 WBC 8.82 RBC 4.74 Hgb 13.7 Hct 42.8 MCV 90 MCH 28.9 MCHC 32.0 RDW 14.5 Plt Count 279 MPV 10.8 Immature Gran % 0.3 Neutrophils % 71.2 Lymphocytes % 18.5 Monocytes % 8.4 Eosinophils % 0.9 Basophils % 0.7 Nucleated RBC % 0.0 Absolute Neutrophils 6.28 Absolute Lymphocytes 1.63 Absolute Monocytes 0.74 Absolute Eosinophils 0.08 Absolute Basophils 0.06 PT INR APTT ABG Sample Site ABG pH ABG pCO2 ABG pO2 ABG HCO3 ABG Total CO2 ABG O2 Saturation ABG Base Excess VBG Lactate 1.4 Sodium 139 Potassium 4.4 Chloride 103 Carbon Dioxide 29.5 Anion Gap 6.5 BUN 20 H Creatinine 0.9 Est GFR (CKD-EPI 2020) 67.92 Glucose 117 H Calcium 9.7 Total Bilirubin 0.3 AST 29 ALT 38 Alkaline Phosphatase 120 H Troponin I < 50 NT-Pro-B Natriuret Pep 109 Total Protein 8.2 Albumin 3.7 COVID-19 Source SARS-CoV-2 (PCR) Influenza Type A (PCR) Influenza Type B (PCR) RSV (PCR) 11/26/22 11/26/2223 15:44 16:52 20:38 WBC RBC Hgb Hct MCV MCH MCHC RDW Plt Count MPV Immature Gran % Neutrophils % Lymphocytes % Monocytes % Eosinophils % Basophils % Nucleated RBC % Absolute Neutrophils Absolute Lymphocytes Absolute Monocytes Absolute Eosinophils Absolute Basophils PT INR APTT ABG Sample Site Unknown ABG pH 7.41 ABG pCO2 44 ABG pO2 53 L ABG HCO3 28 H ABG Total CO2 25 ABG O2 Saturation 87 L ABG Base Excess 3 VBG Lactate Sodium Potassium Chloride Carbon Dioxide Anion Gap BUN Creatinine Est GFR (CKD-EPI 2020) Glucose Calcium Total Bilirubin AST ALT Alkaline Phosphatase Troponin I < 50 NT-Pro-B Natriuret Pep Total Protein Albumin COVID-19 Source Nasopharynx SARS-CoV-2 (PCR) Negative Influenza Type A (PCR) Negative Influenza Type B (PCR) Negative RSV (PCR) Negative 11/26/22 21:46 WBC RBC Hgb Hct MCV MCH MCHC RDW Plt Count MPV Immature Gran % Neutrophils % Lymphocytes % Monocytes % Eosinophils % Basophils % Nucleated RBC % Absolute Neutrophils Absolute Lymphocytes Absolute Monocytes Absolute Eosinophils Absolute Basophils PT 10.8 INR 1.1 APTT 25.3 ABG Sample Site ABG pH ABG pCO2 ABG pO2 ABG HCO3 ABG Total CO2 ABG O2 Saturation ABG Base Excess VBG Lactate Sodium Potassium Chloride Carbon Dioxide Anion Gap BUN Creatinine Est GFR (CKD-EPI 2020) Glucose Calcium Total Bilirubin AST ALT Alkaline Phosphatase Troponin I NT-Pro-B Natriuret Pep Total Protein Albumin COVID-19 Source SARS-CoV-2 (PCR) Influenza Type A (PCR) Influenza Type B (PCR) RSV (PCR)
[2022-11-27 07:01] LABS: Lab Add On Test DONE
[2022-11-27 07:25] LABS: C-Reactive Protein 0.28 mg/dL (0.0-0.3)
[2022-11-27 08:44] LABS: Lab Add On Test DONE
[2022-11-27 09:01] LABS: ESR 43 mm/hr (0-30)
--- NOTE | 2022-11-27 09:03 | INITIAL_ITS ---
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 Medical History . Acute pulmonary embolism. Anxiety. Hyperlipemia. Lung nodule < 6cm on CT. Migraine. PTSD (post-traumatic stress disorder). Surgical History . Appendectomy. History of hysterectomy PREVIOUS FUNCTIONAL STATUS/SOCIAL/FAMILY SUPPORTS:: Faith resides in [place], [place] with a caregiver, Arlene. She has history of anxiety, mental health disorder and requires assistance with ADLs. ADVANCE DIRECTIVES:: On file. Shalini Felipe listed as agent. Has patient been provided with info about the portal/API?: Yes Did the patient sign up for the portal?: No CODE STATUS:: Full Code INSURANCE COVERAGE / FINANCIAL ISSUES:: [facility]/ [facility] CURRENT HOME/COMMUNITY SERVICES/EQUIPMENT:: Faith lives in an [facility] home, which provides her care and assistance with ADL's. PRIMARY CARE PHYSICIAN:: Faith Fischer POTENTIAL DISCHARGE NEEDS:: Follow up appointments. PATIENT/FAMILY EDUCATION NEEDS:: Review discharge instructions regarding activity levels and medications with pt and caregiver, discussion of self care needs and goals of care. ANTICIPATED BARRIERS TO DISCHARGE:: None identified. TRANSPORTATION:: Via private vehicle by caregivers. PLAN:: Anticipate Faith will return to her [facility] home with caregivers once she is medically cleared. She will be driven home via private vehicle by her caregiver or family. She will follow up with her PCP and discharge plan of care. CM will continue to follow.
[2022-11-27 09:15] LABS: D-Dimer 320 ng/mlFEU (<500)
--- NOTE | 2022-11-27 09:37 | W.PM.PROGNOT ---
Date of Service Date of service: 11/27/22 Time of Service: 09:37 Assessment and Plan Assessment and plan (1) SOB (shortness of breath): Status: Acute Assessment and plan: Will continue to monitor for signs of respiratory decompensation Saturation, dyspnea, difficulty breathing We will titrate O2 to maintain a saturation >92% , as she is not on oxygen at home (2) Pleurisy: Status: Acute Assessment and plan: Patient is still experiencing right sided pain, with intermittent left arm pain. Pain is reproducible to the right side. No evidence of respiratory deterioration with stable vital signs EKG was done without evidence of ischemia, troponin was negative Cardiac ultrasound/ TTE completed: No pericardial effusion, LEVF 55%, RVSP 30.6 We will continue prednisone, add scheduled tylenol for pain (3) Aspiration into airway: Status: Acute Assessment and plan: Inflammatory makers CRP was negative and ESR 43 Imaging showed no findings that would pertain to aspiration but we will continue to monitor as change We will offer minimal oxygenation for supportive care at this time Patient is on Pepcid (4) Pulmonary embolism: Status: Chronic Assessment and plan: Patient is on Lovenox treatment dose for probable failure of DOAC. Despite CTA being negative for PE, due the multiple artifacts, a D-Dimer was ordered and would have been followed by a VQ scan or a DVT study if result was positive, as per pulmonary consult recommendation. D-Dimer level is 320 Patient could be transitioned to her DOAC home dose treatment for long-term PE prevention without the need for bridging. We will resume Apixaban 2.5 mg po BID Discontinue Lovenox (5) Pain: Status: Acute Assessment and plan: Patient has pain on mobilization and deep breathing to her right upper chest, the pain is reproducible. Acetaminophen scheduled doses <= 3000mg over 24 hours can achieve pain control for moderate pain; she will receive a dose of Ketorolac to initiate pain control . (6) Discharge planning issues: Status: Acute Assessment and plan: Care management will f/u for discharge needs Patient will be discharged when back to baseline and medically stable (7) On deep vein thrombosis (DVT) prophylaxis: Status: Acute Assessment and plan: Patient is on long-term PE prevention treatment. Subjective Subjective Interval history since last seen: Patient is reporting feeling better after episode to right upper chest pain and left arm pain last night; left arm pain has resolved. She reports weakness and drowsiness Reports right sided chest pain on mobilization and deep breathing She denies SOB Reports eating well, denies nausea, reports suffering from occasional constipation Denies difficulty voiding At 12:30 noon patient c/o right sided chest pain with irradiating to her left arm starting 30 minutes prior Right chest pain still reproducible but left arm pain started w/o precipitating factors 15:15 Patient is reporting that pain control to her right chest as well as left arm has been achieved with the administration of the shot. She is sitting in the recliner, practicing her IS and reports no pain. Exam Narrative Exam Narrative: Patient is alert and orientedX3, speaks in full sentence She is normocephalic, atraumatic, no focal neurolgical deficit noticed She is exhibiting difficulty staying awake during examination interview No lymphadenopathy Right basilar fine crackles to lung velásquez, otherwise clear S2, S2 no murmur, pulses are present Abdomen is large, non-tender, non-distended No CVA tenderness No edema to LEs, push/pull 3-4/5 12:30 : Right sided reproducible chest pain 5/10, left arm pain irradiating to forearm: EKG completed SR HR 78, QRS .086, QT0.38, without ischemic changes, no STEMI, no abnormal ST segments 15:15 Patient appears comfortable; troponin<50 Objective Last Vital Signs Temp 98.2 F 11/27/22 07:36 Pulse 79 11/27/22 07:36 Resp 17 11/27/22 07:36 BP 110/67 11/27/22 07:36 Pulse Ox 97 11/27/22 07:36 Laboratory Results - last 24 hr 11/26/22 11/26/22 11/26/22 14:00 14:32 14:32 WBC 8.82 RBC 4.74 Hgb 13.7 Hct 42.8 MCV 90 MCH 28.9 MCHC 32.0 RDW 14.5 Plt Count 279 MPV 10.8 Immature Gran % 0.3 Neutrophils % 71.2 Lymphocytes % 18.5 Monocytes % 8.4 Eosinophils % 0.9 Basophils % 0.7 Nucleated RBC % 0.0 Absolute Neutrophils 6.28 Absolute Lymphocytes 1.63 Absolute Monocytes 0.74 Absolute Eosinophils 0.08 Absolute Basophils 0.06 ESR PT INR APTT D-Dimer ABG Sample Site ABG pH ABG pCO2 ABG pO2 ABG HCO3 ABG Total CO2 ABG O2 Saturation ABG Base Excess VBG Lactate 1.4 Sodium 139 Potassium 4.4 Chloride 103 Carbon Dioxide 29.5 Anion Gap 6.5 BUN 20 H Creatinine 0.9 Est GFR (CKD-EPI 2020) 67.92 Glucose 117 H Calcium 9.7 Total Bilirubin 0.3 AST 29 ALT 38 Alkaline Phosphatase 120 H Troponin I < 50 C-Reactive Protein NT-Pro-B Natriuret Pep 109 Total Protein 8.2 Albumin 3.7 COVID-19 Source SARS-CoV-2 (PCR) Influenza Type A (PCR) Influenza Type B (PCR) RSV (PCR) Add-On Test Request 11/26/22 11/26/22 11/26/22 15:44 16:52 20:38 WBC RBC Hgb Hct MCV MCH MCHC RDW Plt Count MPV Immature Gran % Neutrophils % Lymphocytes % Monocytes % Eosinophils % Basophils % Nucleated RBC % Absolute Neutrophils Absolute Lymphocytes Absolute Monocytes Absolute Eosinophils Absolute Basophils ESR PT INR APTT D-Dimer ABG Sample Site Unknown ABG pH 7.41 ABG pCO2 44 ABG pO2 53 L ABG HCO3 28 H ABG Total CO2 25 ABG O2 Saturation 87 L ABG Base Excess 3 VBG Lactate Sodium Potassium Chloride Carbon Dioxide Anion Gap BUN Creatinine Est GFR (CKD-EPI 2020) Glucose Calcium Total Bilirubin AST ALT Alkaline Phosphatase Troponin I < 50 C-Reactive Protein NT-Pro-B Natriuret Pep Total Protein Albumin COVID-19 Source Nasopharynx SARS-CoV-2 (PCR) Negative Influenza Type A (PCR) Negative Influenza Type B (PCR) Negative RSV (PCR) Negative Add-On Test Request 11/26/22 11/27/22 11/27/22 21:46 05:32 05:32 WBC RBC Hgb Hct MCV MCH MCHC RDW Plt Count MPV Immature Gran % Neutrophils % Lymphocytes % Monocytes % Eosinophils % Basophils % Nucleated RBC % Absolute Neutrophils Absolute Lymphocytes Absolute Monocytes Absolute Eosinophils Absolute Basophils ESR PT 10.8 INR 1.1 APTT 25.3 D-Dimer ABG Sample Site ABG pH ABG pCO2 ABG pO2 ABG HCO3 ABG Total CO2 ABG O2 Saturation ABG Base Excess VBG Lactate Sodium Potassium Chloride Carbon Dioxide Anion Gap BUN Creatinine Est GFR (CKD-EPI 2020) Glucose Calcium Total Bilirubin AST ALT Alkaline Phosphatase Troponin I C-Reactive Protein 0.28 NT-Pro-B Natriuret Pep Total Protein Albumin COVID-19 Source SARS-CoV-2 (PCR) Influenza Type A (PCR) Influenza Type B (PCR) RSV (PCR) Add-On Test Request DONE 11/27/22 11/27/22 11/27/22 08:35 08:35 08:35 WBC RBC Hgb Hct MCV MCH MCHC RDW Plt Count MPV Immature Gran % Neutrophils % Lymphocytes % Monocytes % Eosinophils % Basophils % Nucleated RBC % Absolute Neutrophils Absolute Lymphocytes Absolute Monocytes Absolute Eosinophils Absolute Basophils ESR 43 H PT INR APTT D-Dimer 320 ABG Sample Site ABG pH ABG pCO2 ABG pO2 ABG HCO3 ABG Total CO2 ABG O2 Saturation ABG Base Excess VBG Lactate Sodium Potassium Chloride Carbon Dioxide Anion Gap BUN Creatinine Est GFR (CKD-EPI 2020) Glucose Calcium Total Bilirubin AST ALT Alkaline Phosphatase Troponin I C-Reactive Protein NT-Pro-B Natriuret Pep Total Protein Albumin COVID-19 Source SARS-CoV-2 (PCR) Influenza Type A (PCR) Influenza Type B (PCR) RSV (PCR) Add-On Test Request DONE Time Spent with Patient Time Spent with Patient: >50 minutes Time was spent: preparing to see the patient(eg.review tests), obtaining and/or reviewing separately otained hiistory, counseling the patient and care coordination
[2022-11-27] MEDS: Enoxaparin 80 MG/0.8 ML SYR SC (09:57)
[2022-11-27] MEDS: Famotidine 20 MG TAB 40 MG PO (09:57)
[2022-11-27] MEDS: Cholecalciferol (Vitamin D3) 1,000 UNIT TAB 1000 UNITS PO (09:57)
--- NOTE | 2022-11-27 10:38 | NUR.NOTE ---
Nursing Note: At approximately 1030 on 11/27/22, this RN returned a call from Samia Felipe (on HIPAA), who states she is the pt.'s niece and DPOA. RN updated pt.'s niece regarding pt.'s mentation, that her VS are stable this morning, how her chest pain has been/is now, pain management techniques, brief head to toe assessment, and plan of care, including possibility of a scan to obtain more diagnostic information. Pt.'s niece verbalized understanding and presented with a few questions that were answered. Pt.'s niece then asked when visiting hours were and was informed of visiting hours and visitor policy by RN. RN then asked pt.'s niece if they had any other concerns or questions and pt.'s niece denied any. Phone call then ended.
--- NOTE | 2022-11-27 11:45 | RT.EKG_ITS ---
APPROVED REPORT Exam: Resting ECG Reason for Exam: chest pain Patient Location: I HR:78 bpm ECG Measurements Heart Rate 78 AXIS FL 136 P 74 QRSd 86 QRS 13 QT 380 T 24 QTc 433 Conclusion Sinus rhythm...normal P axis, V-rate 50- 99 Normal Electrocardiogram
[2022-11-27] MEDS: Acetaminophen 325 MG TAB 650 MG PO (11:53)
[2022-11-27] MEDS: Acetaminophen 325 MG TAB PO (12:44)
[2022-11-27] MEDS: Ketorolac 15 MG/ML VIAL IVP (12:44)
[2022-11-27] MEDS: Normal Saline Flush 10 ML SYR IVP ×2 (12:44→19:36)
[2022-11-27 13:09] LABS: Troponin I < 50 ng/L (<or=60)
[2022-11-27 17:33] LABS: Troponin I < 50 ng/L (<or=60)
[2022-11-27] MEDS: Acetaminophen 500 MG TAB 1000 MG PO (19:26)
[2022-11-27] MEDS: Apixaban 2.5 MG TAB PO (19:29)
[2022-11-27] MEDS: QUEtiapine 50 MG TAB PO (19:30)
[2022-11-27] MEDS: risperiDONE 1 MG TAB 5 MG PO (19:30)
[2022-11-27] MEDS: diazePAM 2 MG TAB PO (19:31)
[2022-11-28] MEDS: Patch Removal 2 EACH TP (01:27)
--- NOTE | 2022-11-28 07:27 | W.PULMPROG ---
Assessment and Plan Assessment and plan (1) SOB (shortness of breath): Status: Acute (2) Pleurisy: Status: Acute (3) Aspiration into airway: Status: Acute (4) Pulmonary embolism: Status: Chronic Assessment and plan: This is a 72 yo with chronic aspiration resulting in pulmonary fibrosis, h/o unprovoked PE on lifelong A/C who was admitted for chest pain and shortness of breath. Her CT does not show a PE and her cardiac work up is negative thus far. Her vital signs have been stable. He work up thus far has been negative. The prednisone has improved her pain, so this could be an inflammatory issue that hopefully should be fully resolved with the prednisone course as below. I will arrange a f/u visit in our clinic in 2-3 weeks time. Pleurisy - prednisone 20mg for 7 days, 10mg for 4 days, 5mg for 3 days - echo with no effusion - will see patient in clinic in 3 weeks h/o PE - D-dimer negative General Date Of Service Date of service: 11/28/22 Time of Service: 07:28 Reason for Consult: Pleurisy and dyspnea Subjective Note Note: Faith is feeling better today. She says he chest pain has improved. She tells me once the prednisone was started her pain improved. Exam Narrative Exam Narrative: Gen:?NAD, normal respiratory effort, well-nourished HENT:?PERRL, nasal turbinates normal without erythema or inflammation, moist oral? mucosa, Mallampati 2, No LAD or JVD Chest:?No respiratory distress, normal appearance of chest, clear to auscultation bilaterally, no crackles or wheezes, normal inspiratory effort Heart:?regular rate and rhythym, no murmurs, rubs or gallops Abdomen:?Non-distended, soft, non tender Extremities:?No clubbing, edema, cyanosis, rashes Neuro:?AAOx3 , non focal Psych:?cooperative, appropriate mental affect Objective Last Vital Signs Temp 36.1 C L 11/27/22 22:46 Pulse 72 11/27/22 22:46 Resp 19 11/27/22 22:46 BP 131/83 11/27/22 22:46 Pulse Ox 98 11/27/22 22:46 Laboratory Results - last 24 hr 11/27/22 11/27/22 11/27/22 05:32 08:35 08:35 ESR D-Dimer 320 Troponin I C-Reactive Protein 0.28 Add-On Test Request DONE 11/27/22 11/27/22 11/27/22 08:35 12:43 17:10 ESR 43 H D-Dimer Troponin I < 50 < 50 C-Reactive Protein Add-On Test Request Results Medications Medications: Active Medications Generic Name Dose Route Start Last Admin Trade Name Freq PRN Reason Stop Dose Admin Acetaminophen 1,000 mg 11/27/22 20:00 11/27/22 19:26 Acetaminophen 500 Mg Tab PO 1,000 mg TID ALISTAIR Administration Al Hydrox/Mg Hydrox/Simethicone 30 ml 11/27/22 02:52 Mylanta Suspension 30 Ml Cup PO Q4H PRN PRN Apixaban 2.5 mg 11/27/22 20:00 11/27/22 19:29 Apixaban 2.5 Mg Tab PO 2.5 mg BID ALISTAIR Administration Atorvastatin Calcium 20 mg 11/27/22 03:00 11/27/22 02:46 Atorvastatin 20 Mg Tab PO Not Given QPM ALISTAIR Cholecalciferol 1,000 units 11/27/22 08:30 11/27/22 09:57 Cholecalciferol (Vitamin D3) 1,000 Unit Tab PO 1,000 units DAILY ALISTAIR Administration Diazepam 2 mg 11/27/22 20:00 11/27/22 19:31 Diazepam 2 Mg Tab PO 2 mg 0700,1999 ALISTAIR Administration Dimethicone/Zinc Oxide 0 gm 11/26/22 21:41 Floyd Protect Cream 142 Gm Tube TP PRN PRN Famotidine 40 mg 11/27/22 08:30 11/27/22 09:57 Famotidine 20 Mg Tab PO 40 mg DAILY ALISTAIR Administration Iohexol 100 ml 11/26/22 19:00 11/26/22 18:47 Omnipaque 350 Mg/Ml 100 Ml Btl IJ 12/26/22 23:59 100 ml DIRECTED ALISTAIR Administration Mirtazapine 30 mg 11/27/22 03:00 11/27/22 03:06 Mirtazapine 15 Mg Tab PO 30 mg HS ALISTAIR Administration Miscellaneous 2 each 11/27/22 22:00 11/28/22 01:27 Patch Removal TP 2 each Q24H ALISTAIR Administration Nitroglycerin 0.2 mg 11/27/22 10:00 11/27/22 09:57 Nitroglycerin 0.1 Mg Patch TD 0.2 mg Q24H ALISTAIR Administration Quetiapine Fumarate 50 mg 11/27/22 20:00 11/27/22 19:30 Quetiapine 50 Mg Tab PO 50 mg QPM ALISTAIR Administration Risperidone 5 mg 11/27/22 03:00 11/27/22 19:30 Risperidone 1 Mg Tab PO 5 mg BID ALISTAIR Administration Sertraline HCl 100 mg 11/27/22 03:00 11/27/22 19:27 Sertraline 50 Mg Tab PO 100 mg BID ALISTAIR Administration Sodium Chloride 50 ml 11/26/22 19:00 11/26/22 18:46 Normal Saline - Diluent 50 Ml Vial IJ 50 ml .FOR DI USE ALISTAIR Administration Sodium Chloride 0 ml 11/26/22 18:49 11/27/22 19:36 Normal Saline Flush 10 Ml Syr IVP 10 ml PRN PRN Administration Allergies caffeine Allergy (Unknown, Verified 11/26/22 13:06) unknown Iodinated Contrast Media [Iodinated Contrast- Oral and IV Dye] Allergy (Unknown, Verified 11/26/22 13:06) unknown morphine Allergy (Unknown, Verified 11/26/22 13:06) unknown Penicillins Allergy (Unknown, Verified 11/26/22 13:06) unknown pravastatin Adverse Reaction (Mild, Verified 11/26/22 13:06) diarrhea Labs Result Diagrams: 11/26/22 14:00 11/26/22 14:32 Labs: Laboratory Tests Range/Units 11/26/22 11/26/22 11/26/22 14:00 14:32 14:32 WBC (4.4-10.8) 10^3/uL 8.82 RBC (3.93-5.22) 10^6/uL 4.74 Hgb (11.2-15.7) g/dL 13.7 Hct (36.0-46.0) % 42.8 MCV (80-95) fL 90 MCH (27.0-33.0) pg 28.9 MCHC (32.0-36.0) % 32.0 RDW (11.7-14.6) % 14.5 Plt Count (130-400) 10^3/uL 279 MPV (8.0-11.0) fL 10.8 Immature Gran % 0.3 Neutrophils % 71.2 Lymphocytes % 18.5 Monocytes % 8.4 Eosinophils % 0.9 Basophils % 0.7 Nucleated RBC % (0.0-0.3) % 0.0 Absolute Neutrophils (1.2-6.7) 10^3/uL 6.28 Absolute Lymphocytes (1.2-3.4) 10^3/uL 1.63 Absolute Monocytes (0.1-0.8) 10^3/uL 0.74 Absolute Eosinophils (0.0-0.7) 10^3/uL 0.08 Absolute Basophils (0.0-0.2) 10^3/uL 0.06 ESR (0-30) mm/hr PT (9.3-11.0) sec INR (0.9-1.1) APTT (21.0-27.5) sec D-Dimer (<500) ng/mlFEU ABG Sample Site ABG pH (7.35-7.45) ABG pCO2 (35-45) mmHg ABG pO2 (80-105) mmHg ABG HCO3 (22-26) mmol/L ABG Total CO2 (23-27) mmol/L ABG O2 Saturation (95-98) % ABG Base Excess (-2-3) mmol/L VBG Lactate (0.6-1.4) mmol/L 1.4 Sodium (136-145) mmol/L 139 Potassium (3.5-5.1) mmol/L 4.4 Chloride (98-107) mmol/L 103 Carbon Dioxide (21.0-32.0) mmol/L 29.5 Anion Gap (3-11) mmol/L 6.5 BUN (7-18) mg/dL 20 H Creatinine (0.55-1.02) mg/dL 0.9 Est GFR (CKD-EPI 2020) (mL/min/1.73m2) 67.92 Glucose (74-106) mg/dL 117 H Calcium (8.5-10.1) mg/dL 9.7 Total Bilirubin (0.2-1.0) mg/dL 0.3 AST (15-37) U/L 29 ALT (14-59) U/L 38 Alkaline Phosphatase (46-116) U/L 120 H Troponin I (<or=60) ng/L < 50 C-Reactive Protein (0.0-0.3) mg/dL NT-Pro-B Natriuret Pep (<300) pg/mL 109 Total Protein (6.4-8.2) g/dL 8.2 Albumin (3.4-5.0) g/dL 3.7 COVID-19 Source SARS-CoV-2 (PCR) (Negative) Influenza Type A (PCR) (Negative) Influenza Type B (PCR) (Negative) RSV (PCR) (Negative) Add-On Test Request Range/Units 11/26/22 11/26/22 11/26/22 15:44 16:52 20:38 WBC (4.4-10.8) 10^3/uL RBC (3.93-5.22) 10^6/uL Hgb (11.2-15.7) g/dL Hct (36.0-46.0) % MCV (80-95) fL MCH (27.0-33.0) pg MCHC (32.0-36.0) % RDW (11.7-14.6) % Plt Count (130-400) 10^3/uL MPV (8.0-11.0) fL Immature Gran % Neutrophils % Lymphocytes % Monocytes % Eosinophils % Basophils % Nucleated RBC % (0.0-0.3) % Absolute Neutrophils (1.2-6.7) 10^3/uL Absolute Lymphocytes (1.2-3.4) 10^3/uL Absolute Monocytes (0.1-0.8) 10^3/uL Absolute Eosinophils (0.0-0.7) 10^3/uL Absolute Basophils (0.0-0.2) 10^3/uL ESR (0-30) mm/hr PT (9.3-11.0) sec INR (0.9-1.1) APTT (21.0-27.5) sec D-Dimer (<500) ng/mlFEU ABG Sample Site Unknown ABG pH (7.35-7.45) 7.41 ABG pCO2 (35-45) mmHg 44 ABG pO2 (80-105) mmHg 53 L ABG HCO3 (22-26) mmol/L 28 H ABG Total CO2 (23-27) mmol/L 25 ABG O2 Saturation (95-98) % 87 L ABG Base Excess (-2-3) mmol/L 3 VBG Lactate (0.6-1.4) mmol/L Sodium (136-145) mmol/L Potassium (3.5-5.1) mmol/L Chloride (98-107) mmol/L Carbon Dioxide (21.0-32.0) mmol/L Anion Gap (3-11) mmol/L BUN (7-18) mg/dL Creatinine (0.55-1.02) mg/dL Est GFR (CKD-EPI 2020) (mL/min/1.73m2) Glucose (74-106) mg/dL Calcium (8.5-10.1) mg/dL Total Bilirubin (0.2-1.0) mg/dL AST (15-37) U/L ALT (14-59) U/L Alkaline Phosphatase (46-116) U/L Troponin I (<or=60) ng/L < 50 C-Reactive Protein (0.0-0.3) mg/dL NT-Pro-B Natriuret Pep (<300) pg/mL Total Protein (6.4-8.2) g/dL Albumin (3.4-5.0) g/dL COVID-19 Source Nasopharynx SARS-CoV-2 (PCR) (Negative) Negative Influenza Type A (PCR) (Negative) Negative Influenza Type B (PCR) (Negative) Negative RSV (PCR) (Negative) Negative Add-On Test Request Range/Units 11/26/22 11/27/22 11/27/22 21:46 05:32 05:32 WBC (4.4-10.8) 10^3/uL RBC (3.93-5.22) 10^6/uL Hgb (11.2-15.7) g/dL Hct (36.0-46.0) % MCV (80-95) fL MCH (27.0-33.0) pg MCHC (32.0-36.0) % RDW (11.7-14.6) % Plt Count (130-400) 10^3/uL MPV (8.0-11.0) fL Immature Gran % Neutrophils % Lymphocytes % Monocytes % Eosinophils % Basophils % Nucleated RBC % (0.0-0.3) % Absolute Neutrophils (1.2-6.7) 10^3/uL Absolute Lymphocytes (1.2-3.4) 10^3/uL Absolute Monocytes (0.1-0.8) 10^3/uL Absolute Eosinophils (0.0-0.7) 10^3/uL Absolute Basophils (0.0-0.2) 10^3/uL ESR (0-30) mm/hr PT (9.3-11.0) sec 10.8 INR (0.9-1.1) 1.1 APTT (21.0-27.5) sec 25.3 D-Dimer (<500) ng/mlFEU ABG Sample Site ABG pH (7.35-7.45) ABG pCO2 (35-45) mmHg ABG pO2 (80-105) mmHg ABG HCO3 (22-26) mmol/L ABG Total CO2 (23-27) mmol/L ABG O2 Saturation (95-98) % ABG Base Excess (-2-3) mmol/L VBG Lactate (0.6-1.4) mmol/L Sodium (136-145) mmol/L Potassium (3.5-5.1) mmol/L Chloride (98-107) mmol/L Carbon Dioxide (21.0-32.0) mmol/L Anion Gap (3-11) mmol/L BUN (7-18) mg/dL Creatinine (0.55-1.02) mg/dL Est GFR (CKD-EPI 2020) (mL/min/1.73m2) Glucose (74-106) mg/dL Calcium (8.5-10.1) mg/dL Total Bilirubin (0.2-1.0) mg/dL AST (15-37) U/L ALT (14-59) U/L Alkaline Phosphatase (46-116) U/L Troponin I (<or=60) ng/L C-Reactive Protein (0.0-0.3) mg/dL 0.28 NT-Pro-B Natriuret Pep (<300) pg/mL Total Protein (6.4-8.2) g/dL Albumin (3.4-5.0) g/dL COVID-19 Source SARS-CoV-2 (PCR) (Negative) Influenza Type A (PCR) (Negative) Influenza Type B (PCR) (Negative) RSV (PCR) (Negative) Add-On Test Request DONE Range/Units 11/27/22 11/27/22 11/27/22 08:35 08:35 08:35 WBC (4.4-10.8) 10^3/uL RBC (3.93-5.22) 10^6/uL Hgb (11.2-15.7) g/dL Hct (36.0-46.0) % MCV (80-95) fL MCH (27.0-33.0) pg MCHC (32.0-36.0) % RDW (11.7-14.6) % Plt Count (130-400) 10^3/uL MPV (8.0-11.0) fL Immature Gran % Neutrophils % Lymphocytes % Monocytes % Eosinophils % Basophils % Nucleated RBC % (0.0-0.3) % Absolute Neutrophils (1.2-6.7) 10^3/uL Absolute Lymphocytes (1.2-3.4) 10^3/uL Absolute Monocytes (0.1-0.8) 10^3/uL Absolute Eosinophils (0.0-0.7) 10^3/uL Absolute Basophils (0.0-0.2) 10^3/uL ESR (0-30) mm/hr 43 H PT (9.3-11.0) sec INR (0.9-1.1) APTT (21.0-27.5) sec D-Dimer (<500) ng/mlFEU 320 ABG Sample Site ABG pH (7.35-7.45) ABG pCO2 (35-45) mmHg ABG pO2 (80-105) mmHg ABG HCO3 (22-26) mmol/L ABG Total CO2 (23-27) mmol/L ABG O2 Saturation (95-98) % ABG Base Excess (-2-3) mmol/L VBG Lactate (0.6-1.4) mmol/L Sodium (136-145) mmol/L Potassium (3.5-5.1) mmol/L Chloride (98-107) mmol/L Carbon Dioxide (21.0-32.0) mmol/L Anion Gap (3-11) mmol/L BUN (7-18) mg/dL Creatinine (0.55-1.02) mg/dL Est GFR (CKD-EPI 2020) (mL/min/1.73m2) Glucose (74-106) mg/dL Calcium (8.5-10.1) mg/dL Total Bilirubin (0.2-1.0) mg/dL AST (15-37) U/L ALT (14-59) U/L Alkaline Phosphatase (46-116) U/L Troponin I (<or=60) ng/L C-Reactive Protein (0.0-0.3) mg/dL NT-Pro-B Natriuret Pep (<300) pg/mL Total Protein (6.4-8.2) g/dL Albumin (3.4-5.0) g/dL COVID-19 Source SARS-CoV-2 (PCR) (Negative) Influenza Type A (PCR) (Negative) Influenza Type B (PCR) (Negative) RSV (PCR) (Negative) Add-On Test Request DONE Range/Units 11/27/22 11/27/22 12:43 17:10 WBC (4.4-10.8) 10^3/uL RBC (3.93-5.22) 10^6/uL Hgb (11.2-15.7) g/dL Hct (36.0-46.0) % MCV (80-95) fL MCH (27.0-33.0) pg MCHC (32.0-36.0) % RDW (11.7-14.6) % Plt Count (130-400) 10^3/uL MPV (8.0-11.0) fL Immature Gran % Neutrophils % Lymphocytes % Monocytes % Eosinophils % Basophils % Nucleated RBC % (0.0-0.3) % Absolute Neutrophils (1.2-6.7) 10^3/uL Absolute Lymphocytes (1.2-3.4) 10^3/uL Absolute Monocytes (0.1-0.8) 10^3/uL Absolute Eosinophils (0.0-0.7) 10^3/uL Absolute Basophils (0.0-0.2) 10^3/uL ESR (0-30) mm/hr PT (9.3-11.0) sec INR (0.9-1.1) APTT (21.0-27.5) sec D-Dimer (<500) ng/mlFEU ABG Sample Site ABG pH (7.35-7.45) ABG pCO2 (35-45) mmHg ABG pO2 (80-105) mmHg ABG HCO3 (22-26) mmol/L ABG Total CO2 (23-27) mmol/L ABG O2 Saturation (95-98) % ABG Base Excess (-2-3) mmol/L VBG Lactate (0.6-1.4) mmol/L Sodium (136-145) mmol/L Potassium (3.5-5.1) mmol/L Chloride (98-107) mmol/L Carbon Dioxide (21.0-32.0) mmol/L Anion Gap (3-11) mmol/L BUN (7-18) mg/dL Creatinine (0.55-1.02) mg/dL Est GFR (CKD-EPI 2020) (mL/min/1.73m2) Glucose (74-106) mg/dL Calcium (8.5-10.1) mg/dL Total Bilirubin (0.2-1.0) mg/dL AST (15-37) U/L ALT (14-59) U/L Alkaline Phosphatase (46-116) U/L Troponin I (<or=60) ng/L < 50 < 50 C-Reactive Protein (0.0-0.3) mg/dL NT-Pro-B Natriuret Pep (<300) pg/mL Total Protein (6.4-8.2) g/dL Albumin (3.4-5.0) g/dL COVID-19 Source SARS-CoV-2 (PCR) (Negative) Influenza Type A (PCR) (Negative) Influenza Type B (PCR) (Negative) RSV (PCR) (Negative) Add-On Test Request
[2022-11-28 07:29] VITALS: BP 116/75; PULSE 74; RESP 18; TEMP 36.3; O2SAT 92
[2022-11-28] MEDS: Apixaban 2.5 MG TAB PO (08:06)
[2022-11-28] MEDS: Cholecalciferol (Vitamin D3) 1,000 UNIT TAB 1000 UNITS PO (08:06)
[2022-11-28] MEDS: risperiDONE 1 MG TAB 5 MG PO (08:06)
[2022-11-28] MEDS: Acetaminophen 500 MG TAB 1000 MG PO ×2 (08:06→14:19)
[2022-11-28] MEDS: Sertraline 50 MG TAB 100 MG PO (08:07)
[2022-11-28] MEDS: diazePAM 2 MG TAB PO (08:07)
[2022-11-28] MEDS: Famotidine 20 MG TAB 40 MG PO (08:07)
[2022-11-28 08:26] VITALS: O2SAT 96
[2022-11-28 11:55] VITALS: O2SAT 97
[2022-11-28 12:41] VITALS: O2SAT 97
--- NOTE | 2022-11-28 14:11 | W.PM.DS.N ---
Date of service: 11/28/22 Time of Service: 14:11 DS: Diagnosis Discharge Diagnosis (1) SOB (shortness of breath): Status: Resolved (2) Pleurisy: Status: Ruled-out (3) Aspiration into airway: Status: Resolved (4) Pulmonary embolism: Status: Chronic (5) Costochondritis: Status: Resolved Asessment and Plan: Chest wall pain relieved with Toradol. Patient instructed to use Tylenol as needed for chest wall pain patient to follow instructions on the bottle. She should not use this more than 3 days in a row. 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 Patient had seen her coiled tubing supervisor in the clinic was sent to the emergency department with complaints of shortness of breath and pleuritic chest pain. Symptoms are felt to be similar to prior episodes of a pulmonary embolus. In the emergency department she was noted to be tachycardic in the 120s with high oxygen saturation in the 80s which increased into the 90s on 2 L/min per nasal cannula. She had no history of fever or chills sputum production or wheezing. She was given albuterol updraft and steroids as pretreatment to her CTA. CTA was read as suboptimal due to motion artifact but no large vessel pulmonary emboli were seen she has baseline fibrosis. EKG showed no acute changes. Troponin I levels were negative x2 sets on admission work-up for pleurisy and pericarditis was performed she had a normal CRP of 0.28 she had 2 more sets of troponins done on 11/27/2022 when she complained of chest pain that turned out to be chest wall tenderness. She had normal CBC on admission and her ESR was minimally elevated at 43. Echocardiogram was performed and showed no pericardial effusion. She had normal left ventricular wall motion with an LVEF of 55%. Left ventricular wall thickness and chamber size were normal and right ventricle was grossly normal in size and grossly normal right ventricular systolic function. Atria were normal in size. She had no structural or hemodynamically significant valvular disease and her estimated RVSP was 31 mm. Patient was weaned off oxygen with an oxygen saturation 91 to 92%. She had no further episodes of chest pain or dyspnea. Her chest wall tenderness on 11/27/2022 was treated with a dose of Toradol. She was seen by her coiled tubing supervisor Dr. Verona Francois on 11/27/2022. Please see her consult note for details. Recommendation was that if her echocardiogram came back normal she would recommend a prednisone trial see if it improves her pain. However she was not discharged on prednisone as her pain was totally relieved with a single dose of Toradol and she had no recurrence at the time of discharge and as her CRP was normal and her sed rate was minimally elevated and her echocardiogram showed no pericardial effusion is felt that her chest pain was probably secondary to recurrent aspiration and coughing rather than due to pleurisy. She was resumed on her previous dose of Eliquis 2.5 mg twice a day. She was discharged home in improved and stable condition. Home Meds and New Rx's Prescriptions: Continued cholecalciferol (vitamin D3) 25 mcg (1,000 unit) tablet 1,000 unit PO DAILY Qty: 90 3RF apixaban 2.5 mg tablet 2.5 mg PO BID Qty: 180 3RF sertraline 50 mg tablet 100 mg PO BID Label Comments: 07/16/[address] [facility] states pt take 100mg BID diazepam [Valium] 5 mg tablet 2 mg PO BID Rx Instructions: 7 am and 8 pm, [facility] \01/14/20 2 mg BID. mk mirtazapine 30 mg tablet 30 mg PO HS Rx Instructions: Per NK risperidone [Risperdal] 1 mg tablet 5 mg PO BID nitroglycerin 0.2 mg/hr patch 24 hour 1 patch topical Q24H Qty: 30 6RF atorvastatin 20 mg tablet 20 mg PO QHS Qty: 90 3RF famotidine 40 mg tablet 1 tab QAM Label Comments: TAKE ONE TABLET BY MOUTH EVERY DAY quetiapine 50 mg tablet 50 tab QPM Label Comments: TAKE 1 TABLET BY MOUTH AT NIGHT MAY REPEAT ONCE FOR AUDITORY HALLUCINATIONS Discharge Instructions Instructions: Costochondritis (DC) Additional Instructions: You may take Tylenol as needed follow the directions on the bottle to be taken as needed for chest wall tenderness. Do not exceed the daily recommended dose and do not take for more than 3 days consecutively. With regard to your chronic aspiration issue please follow safe swallowing instructions which should include being upright for all meals. Do not eat in bed. You should be seated upright in chair and remained so for 30 minutes after eating. Alternate small bites with sips of liquids. Be sure to swallow couple times after each bite or sip. Do not talk while eating. Consider soft textured foods. If you have not had a recent GI work-up and is recommend that you see a GI specialist for an EGD. Stand Alone Forms: Nursing Discharge Form Referrals: Faith Fischer NP [Primary Care Provider] - 12/12/22 11:30 am Activity:: Activity as Tolerated Equipment/Supplies:: No Equipment Needed Diet:: Soft foods Discharge Orders Discharge Orders: Discharge Order (Routine); Ordered 11/28/22 Ordered By: Casa Chu Discharge Data Discharge Date/Time-TO BE ENTERED AT DEPARTURE: 11/28/22 15:58 DS: Summary Time Spent with Patient providing and/or coordinating discharge services: Less than 30 minutes Specific discharge activities: Interview/exam of patient; review of discharge instructions, completion of prescriptions/discharge instructions; discussion w/ nursing and CM; documentation of hospital visit Status at Discharge Functional status at discharge: independent ambulation Overall status at discharge: patient is back to baseline Mental Status: mental status grossly normal Speech and Movement: speech and movement normal Mood: congruent mood Affect: normal affect Exam Narrative Exam Narrative: Patient sitting up in bed no acute distress she denies any chest pain or pressure denies any dyspnea. She is visiting with her cousin who is here to pick her up. Lungs are clear to auscultation Heart is regular rate and rhythm no murmur rub or gallop Abdomen soft nontender Chest wall nontender to palpation Extremities without peripheral cyanosis or edema. Psych Mental Status: mental status grossly normal Speech and Movement: speech and movement normal Mood: congruent mood Affect: normal affect DS: Data Vitals/I&O Vitals and I&O: Vital Signs Temperature 36.3 C L 11/28/22 07:29 Temperature Source Tympanic 11/28/22 07:29 Pulse 74 11/28/22 07:29 Pulse Rhythm Regular 11/28/22 05:14 Pulse 92 H 11/26/22 21:50 Respiratory Rate 18 11/28/22 07:29 Respiratory Effort 11/28/22 05:14 Respiratory Depth Normal 11/28/22 05:14 Respiratory Pattern Normal 11/28/22 05:14 Blood Pressure 116/75 11/28/22 07:29 Blood Pressure Mean 81 11/26/22 18:46 Blood Pressure Position Sitting 11/26/22 13:36 Pulse Oximetry 97 11/28/22 12:41 Oxygen Delivery Method Nasal Cannula 11/28/22 12:41 Oxygen Flow Rate 1 11/28/22 12:41 Pain Level 0 11/28/22 11:55 Comment 11/28/22 12:41 Intake & Output 11/27/22 11/28/22 11/28/22 23:59 11:59 23:59 Intake Total 980 / 1220 180 / 180 Output Total 400 / 1800 700 / 700 Balance 580 / -580 -700 / -520 180 / -520 Intake: IV Oral 960 / 1200 180 / 180 Output: Urine 400 / 1800 700 / 700 Other: Urine Color Yellow Yellow Urine Appearance Clear Clear Urine Odor None Comment 1 unkown void pt missed toilet insert at this time. toilet insert used to measure. Voiding Methods Toilet Toilet Data Completed and Pending Labs on day of discharge: Labs from last 24 hours 11/27/22 17:10 Troponin I < 50 PFSH All Active Problems (Updated 11/28/22 @ 14:14 by Casa Chu MD) On deep vein thrombosis (DVT) prophylaxis (Acute) Discharge planning issues (Acute) Pain (Acute) Hypoxia (Acute) Osteoporosis (Chronic) Dysphagia (Acute) Dysarthria (Acute) Parkinsonism (Acute) Muscle weakness (Acute) Pulmonary fibrosis (Acute) Pulmonary nodule 1 cm or greater in diameter (Acute) Right conjunctivitis (Acute) Colon cancer screening (Acute) Ear itching (Acute) Pulmonary embolism (Chronic) Chest pain (Acute) Pulmonary embolism (Chronic) Family history of stroke (Acute) Family history of DVT (Acute) Family history of pulmonary embolism (Acute) Facial droop (Chronic) Atypical chest pain (Acute) Chest pain (Acute) Hypoxia (Acute) Colon cancer screening declined (Acute) Mammogram declined (Acute) Internal derangement of left knee (Acute) Left knee pain (Acute) Abnormal auditory perception (Acute) Conjunctivitis (Acute) Impacted cerumen of both ears (Acute) Colonoscopy refused (Acute) Oropharyngeal dysphagia (Acute) 03/09/19 JOVANY Duran TMJ dysfunction (Acute) 03/09/19 JOVANY Duran Auditory hallucination (Chronic) Diabetes type 2, controlled (Chronic) High blood cholesterol (Chronic) Osteopenia (Acute 11/16/11) DEXA 10/2011 spine T-1.2, hip -1.5, forearm -2.3 08/2015 spine T-0.9, hip -1.6: FRAX 9.2/1.0% Intermittent diarrhea (Acute 04/06/16) Impaired fasting glucose (Acute 08/04/12) Hyperlipidemia (Acute 11/16/11) FRS 13% PCEq risk 5.8% LDL baseline 171 Headache (Acute 06/26/13) Ear itch (Acute 04/06/16) 03/09/19 JOVANY Duran. Dermatitis both ear canals Chest pain (Acute 06/26/13) CP of undetermined etiology Anxiety (Acute 08/04/12) Dr. Valenzuela Psychiatrist [facility] case management Rosi Anger reaction (Acute 10/17/16) Allergic rhinitis (Acute 11/16/11) Adjustment disorder, unspecified (Acute 10/30/16) Medical History Acute pulmonary embolism Anxiety Hyperlipemia Lung nodule < 6cm on CT Migraine PTSD (post-traumatic stress disorder) Surgical History Appendectomy History of hysterectomy Family History Mother Heart disease Father Heart disease CHF Sister No problems noted. Social History Smoking/Tobacco Use Status: Never Smoking risk assessment performed?: Yes Alcohol Intake: never Drug use: Never Substance use type: does not use Caregiver/Support person: Yes Household members: caregiver and other Details: Arlene is caregiver, Arlene's and another client Housing: house Number of Children: 0 Communication Needs: Corrective Lenses current occupation: disabled How often do you talk on the phone with friends or family?: three or more times per week Panel score (0-1 are the most socially isolated patients): 1 What type of physical activity do you participate in: walking Duration: 15-30 minutes/day Frequency: daily Seatbelt use: always Drive intox or ride w/intox driver's license examiner: No Working smoke detector in home: Yes Fire extinguisher in home: Yes Carbon monox detector in home: Yes Firearms in home: No Do you feel safe at home: Yes Do you feel safe in your relationship?: Yes Time Spent with Patient Time Spent with Patient: <45 minutes Time was spent: preparing to see the patient(eg.review tests), obtaining and/or reviewing separately otained hiistory, ordering medications,tests, procedures, referring, communicating with other health primary care md, indepentently interpreting results, counseling the patient and care coordination
[2022-11-28 14:22] VITALS: O2SAT 92
[2022-11-28 15:42] VITALS: BP 121/76; PULSE 88; RESP 16; TEMP 36.7; O2SAT 91
[2022-11-28 17:48] LABS: Heparin Anti-Xa, P 1.16 IU/mL
--- NOTE | 2022-11-28 17:48 | PDOC.CMDIS ---
- If Service Date Differs Date of service: 11/28/22 Time of Service: 17:48 LACE Index Scoring Tool - Questions: Length of Stay (in days): 2 Acuity (Admit via E.D.?): Yes Comorbidities: Diabetes w/o Complication E.D. Visits: 1 - Answers: Total Score: 7 Risk of Readmission: Low Risk Care Management Discharge Reason for Hospitalization: CP, SOB Discharge Plan: Faith returned home today with no new services. Her neice drove her home via private vehicle. She will follow up with her PCP and discharge plan of care. She is happy to be going home. Patient/Family Education Needs: Review discharge instructions and limitations, discussion of self care needs including ask me three.
[2022-12-12 13:13] LABS: Apixaban, P 44 ng/mL
== END 2022-11-28 15:58 | disposition home or self-care (01) ==
LOC: ER 22:33 → MS 22:36
PROVIDERS: Internal Medicine; Physician Assistant; Student in an Organized Health Care Education/Training Program; Admitting Provider General Practice; Emergency Provider Physician Assistant; PCP Nurse Practitioner; Visit Provider General Practice
DX: R09.1 Pleurisy (principal); R06.02 Shortness of breath; T17.908A Unspecified foreign body in respiratory tract, part unspecified causing other injury, initial encounter; J84.10 Pulmonary fibrosis, unspecified; R05.9 Cough, unspecified; Z86.711 Personal history of pulmonary embolism; Z79.01 Long term (current) use of anticoagulants; E78.5 Hyperlipidemia, unspecified; F41.9 Anxiety disorder, unspecified; F43.10 Post-traumatic stress disorder, unspecified; M81.0 Age-related osteoporosis without current pathological fracture; R47.1 Dysarthria and anarthria; R13.10 Dysphagia, unspecified; R00.0 Tachycardia, unspecified; R07.89 Other chest pain
CPT/HCPCS: 36415; 71275; 80053; 80375; 82805; 85652; 87637; 93005; 93306; 96361; 96372; 96374; 96375; 99285; 71046; 83605; 83880; 84484; 85025; 85379; 85520; 85610; 85730; 86140; 93010; 99223; 99233; 99238; G0378; J1200; J1650; J1885; J3490

== ENCOUNTER → 2023-01-02 13:41 | Outpatient (BNVA) | payer MEDICARE, MEDICAID, SELFPAY | PROVIDERS: PCP Nurse Practitioner; Referring Provider Nurse Practitioner; Visit Provider Psychiatry & Neurology Neurology | DX: G21.11 Neuroleptic induced parkinsonism (principal) | CPT/HCPCS: 99214 ==

== ENCOUNTER → 2023-02-07 12:30 | Outpatient (BNVA) | payer MEDICARE, MEDICAID, SELFPAY | PROVIDERS: PCP Nurse Practitioner; Referring Provider Nurse Practitioner; Visit Provider Psychiatry & Neurology Neurology | DX: G20 Parkinson's disease (principal) | CPT/HCPCS: 99213 ==

== ENCOUNTER → 2023-05-09 11:15 | Outpatient (BNVA) | payer MEDICARE, MEDICAID, SELFPAY | PROVIDERS: PCP Nurse Practitioner; Referring Provider Nurse Practitioner; Visit Provider Psychiatry & Neurology Neurology | DX: G21.11 Neuroleptic induced parkinsonism (principal); R47.1 Dysarthria and anarthria; R13.10 Dysphagia, unspecified; E11.9 Type 2 diabetes mellitus without complications | CPT/HCPCS: 99213 ==

== ENCOUNTER 2023-06-18 15:22 | Outpatient (REF) | payer MEDICARE, MEDICAID, SELFPAY ==
[2023-06-18 19:10] LABS: Abs Immature Grans 0.02 10^3/uL (0.0-0.06); Absolute Basophil Count 0.05 10^3/uL (0.0-0.2); Absolute Eosinophil Count 0.12 10^3/uL (0.0-0.7); Absolute Lymphocyte Count 1.88 10^3/uL (1.2-3.4); Absolute Monocyte Count 0.68 10^3/uL (0.1-0.8); Absolute Neutrophil Count 6.32 10^3/uL (1.2-6.7); Basophils % 0.6; Eosinophils % 1.3; HCT 41.1 % (36.0-46.0); Immature Grans % 0.2; Lymphocytes % 20.7; MCH 28.7 pg (27.0-33.0); MCHC 31.6 % (32.0-36.0); MCV 91 fL (80-95); MPV 11.1 fL (8.0-11.0); Monocytes % 7.5; Neutrophils % 69.7; Platelet Count 255 10^3/uL (130-400); RBC 4.53 10^6/uL (3.93-5.22); RDW 14.7 % (11.7-14.6); WBC 9.07 10^3/uL (4.4-10.8)
[2023-06-18 19:24] LABS: ALT 20 U/L (14-59); AST 21 U/L (15-37); Albumin 3.5 g/dL (3.4-5.0); Alkaline Phosphatase 108 U/L (46-116); Anion Gap 9.4 mmol/L (3-11); BUN 18 mg/dL (7-18); Bilirubin, Total 0.3 mg/dL (0.2-1.0); CO2 27.6 mmol/L (21.0-32.0); CREATININE 0.9 mg/dL (0.55-1.02); Calcium 9.3 mg/dL (8.5-10.1); Chloride 107 mmol/L (98-107); Estimated GFR 67.92 (mL/min/1.73m2); Glucose 124 mg/dL (74-106); Potassium 3.9 mmol/L (3.5-5.1); Sodium 144 mmol/L (136-145)
== END 2023-06-18 15:23 | disposition home or self-care (01) ==
LOC: LBN 15:22
PROVIDERS: PCP Nurse Practitioner; Visit Provider Nurse Practitioner
DX: R30.0 Dysuria (principal); R31.9 Hematuria, unspecified; Z79.01 Long term (current) use of anticoagulants
CPT/HCPCS: 80053; 87077; 85025; 87086; 87186

== ENCOUNTER 2023-07-03 16:53 | Outpatient (REF) | payer MEDICARE, MEDICAID, SELFPAY | END 2023-07-03 16:54 | disposition home or self-care (01) | LOC: LBO 16:53 | PROVIDERS: PCP Nurse Practitioner; Visit Provider Nurse Practitioner | DX: R30.0 Dysuria (principal) | CPT/HCPCS: 87077; 87086; 87186 ==

== ENCOUNTER → 2023-09-03 09:08 | Outpatient (BNVA) | payer MEDICARE, MEDICAID, SELFPAY | PROVIDERS: PCP Nurse Practitioner; Referring Provider Nurse Practitioner; Visit Provider Psychiatry & Neurology Neurology | DX: G21.11 Neuroleptic induced parkinsonism (principal); H93.8X2 Other specified disorders of left ear; R47.1 Dysarthria and anarthria; R13.10 Dysphagia, unspecified | CPT/HCPCS: 99213 ==

== ENCOUNTER → 2023-09-16 14:44 | Outpatient (BNVA) | payer MEDICARE, MEDICAID, SELFPAY | PROVIDERS: PCP Nurse Practitioner; Referring Provider Nurse Practitioner; Visit Provider Student in an Organized Health Care Education/Training Program | DX: M25.562 Pain in left knee (principal); M22.2X2 Patellofemoral disorders, left knee | CPT/HCPCS: 99213 ==

== ENCOUNTER 2023-12-17 15:01 | Outpatient (REF) | payer MEDICARE, MEDICAID, SELFPAY ==
[2023-12-18 13:46] LABS: Calculated LDL 95 mg/dL (<100); Cholesterol 182 mg/dL (<200); HDL Cholesterol 45 mg/dL (40-60); Triglyceride 210 mg/dL (<150)
== END 2023-12-17 15:02 | disposition home or self-care (01) ==
LOC: LBN 15:01
PROVIDERS: PCP Nurse Practitioner; Visit Provider Nurse Practitioner
DX: E78.5 Hyperlipidemia, unspecified (principal)
CPT/HCPCS: 80061

== ENCOUNTER → 2023-12-18 12:36 | Outpatient (BNVA) | payer MEDICARE, MEDICAID, SELFPAY | PROVIDERS: PCP Nurse Practitioner; Referring Provider Nurse Practitioner; Visit Provider Physician Assistant Surgical | DX: R91.1 Solitary pulmonary nodule (principal); I26.99 Other pulmonary embolism without acute cor pulmonale; J84.10 Pulmonary fibrosis, unspecified; R07.89 Other chest pain; T17.908D Unspecified foreign body in respiratory tract, part unspecified causing other injury, subsequent encounter | CPT/HCPCS: 99214 ==

== ENCOUNTER → 2023-12-31 09:25 | Outpatient (BNVA) | payer MEDICARE, MEDICAID, SELFPAY | PROVIDERS: PCP Nurse Practitioner; Visit Provider Psychiatry & Neurology Neurology | DX: G20.C Parkinsonism, unspecified (principal); R47.1 Dysarthria and anarthria; R13.10 Dysphagia, unspecified | CPT/HCPCS: 99213 ==

== ENCOUNTER → 2024-01-01 01:11 | Outpatient (CLI) | payer MEDICARE, MEDICAID, SELFPAY ==
--- NOTE | 2024-01-01 07:45 | DI.CT_ITS ---
Exam(s) CT CHEST WO EXAM: CT CHEST WO CLINICAL HISTORY: screening,f/u pulmonary nodule,r91.1. TECHNIQUE: Multi planar reconstructions were performed. CONTRAST MATERIAL: None COMPARISON: CT CT CHEST WO from 04/26/[address] CHEST PE CTA from 11/26/2022 CR XR CHEST 2V PA LATERAL from 11/26/2022 FINDINGS: CHEST: LUNGS: Mild increased markings just anterior to the uppermost aspect of the left major fissure are no aristides in the apical posterior segment of the left upper lobe, unchanged from 11/26/2022 and 04/26/2022 and likely benign. No new infiltrates nor pleural effusions. No findings in the trachea and mainste m bronchi. MEDIASTINUM: There is no obvious hilar nor mediastinal adenopathy. Visualized thyroid unremarkable.No obvious axillary adenopathy CARDIAC: Heart size is normal. There is no pericardial effusion.Caliber of the thoracic aorta is wit hin normal limits. VISUALIZED UPPER ABDOMEN:No adrenal masses. OSSEOUS: No significant osseous lesions.Fractures.. IMPRESSION: 1. Stable benign-appearing lung findings as described above. 2. No new infiltrates, ominous new pulmonary nodules, nor pleural effusions and there is no intrathor acic adenopathy. RADIATION DOSE DELIVERED: 657.09mGy.cm Total DLP DATA REPOSITORY: All CT scans at this facility are submitted to the National Radiology Data Registry (NRDR) Dose Index Registry (DIR) with the [employer] (ACR). RADIATION OPTIMIZATION: All CT scans at this facility use at least one of these dose optimization te chniques: automated exposure control; mA and/or kV adjustment per patient size (includes targeted exa ms where dose is matched to clinical indication); or iterative reconstruction.
== END ==
PROVIDERS: PCP Nurse Practitioner; Visit Provider Physician Assistant Surgical
DX: R91.1 Solitary pulmonary nodule (principal)
CPT/HCPCS: 71250

== ENCOUNTER 2024-04-22 01:17 | Outpatient (CLI) | payer MEDICARE, MEDICAID, SELFPAY ==
[2024-04-22 12:13] LABS: Anion Gap 9.8 mmol/L (3-11); BUN 19 mg/dL (7-18); CO2 28.2 mmol/L (21.0-32.0); CREATININE 0.8 mg/dL (0.55-1.02); Calcium 10.2 mg/dL (8.5-10.1); Chloride 105 mmol/L (98-107); Estimated GFR 77.75 (mL/min/1.73m2); Glucose 107 mg/dL (74-106); Potassium 4.1 mmol/L (3.5-5.1); Sodium 143 mmol/L (136-145)
== END 2024-04-22 01:18 | disposition home or self-care (01) ==
LOC: LOS 01:18
PROVIDERS: PCP Nurse Practitioner; Visit Provider Nurse Practitioner
DX: E11.9 Type 2 diabetes mellitus without complications (principal)
CPT/HCPCS: 36415; 80048

== ENCOUNTER → 2024-04-29 12:36 | Outpatient (BNVA) | payer MEDICARE, MEDICAID, SELFPAY | PROVIDERS: PCP Nurse Practitioner; Referring Provider Nurse Practitioner; Visit Provider Psychiatry & Neurology Neurology | DX: G20.C Parkinsonism, unspecified (principal); R47.1 Dysarthria and anarthria; R13.10 Dysphagia, unspecified | CPT/HCPCS: 99213 ==

== ENCOUNTER 2024-07-30 12:32 | Outpatient (REF) | payer MEDICARE, MEDICAID, SELFPAY ==
[2024-07-30 13:02] LABS: Bilirubin Negative (Negative); Blood Negative (Negative); Clarity Sl Cloudy (Clear); Glucose Negative (Negative); Ketones Negative (Negative); Leukocyte Esterase Trace (Negative); Nitrite Positive (Negative); Urobilinogen 0.2 mg/dL (Up to 0.2)
[2024-07-30 13:25] LABS: Bacteria Many HPF (Negative); Crystals Mod Calcium Oxalate HPF (Negative); Epithelial Cells Rare HPF (Negative); RBC 0-2 HPF (0-2)
[2024-07-30 13:26] LABS: C & S Indicated? No; Casts Negative LPF (Negative); Mucus Negative (Negative)
== END 2024-07-30 12:33 | disposition home or self-care (01) ==
LOC: LBO 12:32
PROVIDERS: PCP Nurse Practitioner; Visit Provider Nurse Practitioner
DX: R82.90 Unspecified abnormal findings in urine (principal)
CPT/HCPCS: 87077; 81003; 81015; 87086; 87186

== ENCOUNTER → 2024-08-26 10:45 | Outpatient (BNVA) | payer MEDICARE, MEDICAID, SELFPAY | PROVIDERS: PCP Nurse Practitioner; Visit Provider Psychiatry & Neurology Neurology | DX: R47.1 Dysarthria and anarthria (principal); R13.10 Dysphagia, unspecified | CPT/HCPCS: 99213 ==

== ENCOUNTER 2024-12-07 14:40 | Outpatient (REF) | payer MEDICARE, MEDICAID, SELFPAY ==
[2024-12-07 13:51] LABS: Clarity Clear (Clear); Glucose Negative (Negative); Ketones Negative (Negative); Leukocyte Esterase Trace (Negative); Nitrite Negative (Negative); pH 5.5 (5-8)
[2024-12-07 13:55] LABS: Bilirubin Negative (Negative); Blood Negative (Negative); Urobilinogen 0.2 mg/dL (Up to 0.2)
[2024-12-07 13:56] LABS: Bacteria Few HPF (Negative); C & S Indicated? No; Casts Negative LPF (Negative); Crystals Negative HPF (Negative); Epithelial Cells Moderate HPF (Negative); Mucus Negative (Negative); RBC 0-2 HPF (0-2); WBC 0-2 HPF (0-5)
[2024-12-07 16:52] LABS: Lab Add On Test DONE
== END 2024-12-07 14:41 | disposition home or self-care (01) ==
LOC: LBN 14:40
PROVIDERS: PCP Nurse Practitioner; Visit Provider Nurse Practitioner
DX: R30.0 Dysuria (principal)
CPT/HCPCS: 87077; 81003; 81015; 87086; 87186

== ENCOUNTER → 2024-12-21 12:31 | Outpatient (BNVA) | payer MEDICARE, MEDICAID, SELFPAY | PROVIDERS: PCP Nurse Practitioner; Referring Provider Nurse Practitioner; Visit Provider Physician Assistant Surgical | DX: J84.10 Pulmonary fibrosis, unspecified (principal); I26.99 Other pulmonary embolism without acute cor pulmonale; T17.908A Unspecified foreign body in respiratory tract, part unspecified causing other injury, initial encounter; R91.1 Solitary pulmonary nodule | CPT/HCPCS: 99214 ==

== ENCOUNTER → 2025-02-24 12:37 | Outpatient (BNVA) | payer MEDICARE, MEDICAID, SELFPAY | PROVIDERS: PCP Nurse Practitioner; Referring Provider Nurse Practitioner; Visit Provider Psychiatry & Neurology Neurology | DX: G20.C Parkinsonism, unspecified (principal); R47.1 Dysarthria and anarthria; R13.10 Dysphagia, unspecified; R41.3 Other amnesia; E11.9 Type 2 diabetes mellitus without complications | CPT/HCPCS: 99215 ==

== ENCOUNTER → 2025-04-21 15:17 | Outpatient (BNVA) | payer MEDICARE, MEDICAID, SELFPAY | PROVIDERS: PCP Nurse Practitioner Family; Referring Provider Nurse Practitioner Family; Visit Provider Podiatrist | DX: E11.42 Type 2 diabetes mellitus with diabetic polyneuropathy (principal); M79.671 Pain in right foot; M79.672 Pain in left foot; L60.0 Ingrowing nail; L08.89 Other specified local infections of the skin and subcutaneous tissue; B35.1 Tinea unguium; L60.3 Nail dystrophy; R09.89 Other specified symptoms and signs involving the circulatory and respiratory systems; L65.9 Nonscarring hair loss, unspecified; L60.2 Onychogryphosis; L60.8 Other nail disorders | CPT/HCPCS: 99213; 11720 ==

== ENCOUNTER 2025-05-25 16:31 | Outpatient (REF) | payer MEDICARE, MEDICAID, SELFPAY ==
[2025-05-25 14:39] LABS: Glucose Negative (Negative)
[2025-05-25 15:00] LABS: RBC Negative HPF (0-2); WBC 0-2 HPF (0-5)
[2025-05-25 15:01] LABS: C & S Indicated? No
== END 2025-05-25 16:32 | disposition home or self-care (01) ==
LOC: LBN 16:31
PROVIDERS: PCP Nurse Practitioner Family; Visit Provider Nurse Practitioner Family
DX: R39.9 Unspecified symptoms and signs involving the genitourinary system (principal)
CPT/HCPCS: 81003; 81015

== ENCOUNTER → 2025-05-26 12:18 | Outpatient (BNVA) | payer MEDICARE, MEDICAID, SELFPAY | PROVIDERS: PCP Nurse Practitioner Family; Referring Provider Nurse Practitioner Family; Visit Provider Psychiatry & Neurology Neurology | DX: G20.C Parkinsonism, unspecified (principal); R47.1 Dysarthria and anarthria; R13.10 Dysphagia, unspecified; R41.3 Other amnesia; E11.9 Type 2 diabetes mellitus without complications | CPT/HCPCS: 99214 ==

== ENCOUNTER 2025-06-07 03:59 | Outpatient (CLI) | payer MEDICARE, MEDICAID, SELFPAY ==
[2025-06-07 16:58] LABS: Hemoglobin A1C 5.8 % (<5.7)
[2025-06-07 17:32] LABS: Anion Gap 8.6 mmol/L (3-11); BUN 15 mg/dL (7-18); CO2 29.4 mmol/L (21.0-32.0); Calcium 9.3 mg/dL (8.5-10.1); Chloride 106 mmol/L (98-107); Estimated GFR 90.70 (mL/min/1.73m2); Glucose 101 mg/dL (74-106); Potassium 3.8 mmol/L (3.5-5.1); Sodium 144 mmol/L (136-145); Vitamin B12 554 pg/mL (193-986)
== END 2025-06-07 04:00 | disposition home or self-care (01) ==
PROVIDERS: PCP Nurse Practitioner Family; Visit Provider Nurse Practitioner Family
DX: E11.9 Type 2 diabetes mellitus without complications (principal)
CPT/HCPCS: 36415; 80048; 82607; 83036

== ENCOUNTER 2025-06-25 10:55 | Day surgery (SDC) | payer MEDICARE, MEDICAID, SELFPAY ==
--- NOTE | 2025-06-25 06:34 | W.ANESPRE ---
General Info Date of Service Date Performed: 06/25/25 Height: 5 ft 6 in Weight: 61.689 kg Body Mass Index (BMI): 21.9 Surgical Procedure: Operation Date: 06/25/25 13:10 Proposed Procedure Side Surgeon p Cataract Extraction with IOL Implant Left Anibal Cade MD Meds Allergies and Home Medications Allergies Allergy/AdvReac Type Severity Reaction Status Date / Time morphine Allergy Intermediate nausea and Verified 06/25/25 11:37 vomiting caffeine Allergy Unknown unknown Verified 06/25/25 11:37 Iodinated Contrast Media Allergy Unknown unknown Verified 06/25/25 11:37 (Iodinated Contrast- Oral and IV Dye) Penicillins Allergy Unknown unknown Verified 06/25/25 11:37 pravastatin AdvReac Mild diarrhea Verified 06/25/25 11:37 Home Medication ?Medication ?Instructions ?Recorded lancets #100 ea 03/25/24 cetirizine 10 mg tablet See Rx Instructions .Route 08/18/24 .COMPLEX #28 tabs apixaban 2.5 mg tablet (Eliquis) See Rx Instructions .Route 09/14/24 .COMPLEX #56 tabs Seroquel 50 mg tablet (quetiapine) 50 mg PO DAILY PRN acute agiaton 10/19/24 #30 tabs atorvastatin 20 mg tablet 20 mg PO QHS #90 tabs 10/27/24 aripiprazole 20 mg tablet (Abilify) 20 mg PO DAILY #84 tabs 12/21/24 mirtazapine 30 mg tablet 30 mg PO QHS #84 tabs 12/21/24 omeprazole 20 mg capsule,delayed 20 mg PO DAILY #90 caps 12/21/24 release metformin 500 mg tablet 500 mg PO BID #180 tabs 01/05/25 Seroquel XR 200 mg tablet,extended 200 mg PO QHS #28 tabs 04/01/25 release (quetiapine) nystatin 100,000 unit/gram topical 1 applic topical TID #60 grams 04/20/25 cream ketoconazole 2 % topical cream 1 applic topical DAILY #120 grams 04/21/25 blood sugar diagnostic (FreeStyle #100 strips 04/26/25 Lite Strips) lancets 28 gauge (FreeStyle #100 ea 04/26/25 Lancets) nitroglycerin 2 % transdermal 1 inch transdermal BID #30 grams 05/05/25 ointment (Nitro-Bid) sertraline 50 mg tablet 50 mg PO DAILY #28 tabs 05/20/25 cholecalciferol (vitamin D3) 25 2,000 unit PO DAILY #30 tab-caps 05/25/25 mcg (1,000 unit) tablet carbidopa 25 mg-levodopa 100 mg 1 tab PO TID #270 tabs 05/26/25 tablet quetiapine 50 mg tablet,extended 100 mg (2 x 50 mg) PO .COMPLEX 06/09/25 release 24 hr (Seroquel XR) #168 tabs diazepam 2 mg tablet 2 mg PO BID PRN anxiety #60 06/16/25 tab-caps blood-glucose meter (FreeStyle #1 ea 06/24/25 Lite Meter kit) Current Visit Medications: Current Medications Generic Name Dose Route Start Last Admin Trade Name Freq PRN Reason Stop Dose Admin Acetaminophen 1,000 mg 06/25/25 06:05 Acetaminophen 500 Mg Tab PO 07/25/25 06:04 Q4H PRN PRN Balanced Salt Solution 500 ml 06/25/25 06:05 Balanced Salt Soln.-Plus 500 Ml Bag OP 07/25/25 06:04 DIRECTED [facility] Miscellaneous Medication 0 ml 06/25/25 06:05 Prednisolone 1%, Moxifloxacin 0.5%, Bromfenac 0.09% 5.6ml Btl OS 07/25/25 06:04 DIRECTED [facility] Miscellaneous Medication 0 ml 06/25/25 06:05 Tropicam./Phenyleph. (1/2.5%) 5 Ml Btl OS 07/25/25 06:04 DIRECTED [facility] Tetracaine HCl 0 ml 06/25/25 06:05 Tetracaine 0.5% 4 Ml Btl OS 07/25/25 06:04 DIRECTED [facility] PFSH Active Problems Active Problems: Problem Status Onset Code Posterior subcapsular age-related cataract of left eye Acute H25.042 Cortical age-related cataract, left eye Acute H25.012 Nuclear age-related cataract, left eye Acute H25.12 Pre-op exam Acute Z01.818 Pain in both feet Acute M79.671, M79.672 Dystrophia unguium Acute L60.3 Onychomycosis Acute B35.1 Type 2 diabetes mellitus with peripheral neuropathy Acute E11.42 Cataract, right eye Acute ~06/2024 H26.9 Patellofemoral disorders, left knee Acute M22.2X2 Pulmonary nodule Acute R91.1 Major depression Chronic F32.9 Psychotic disorder Acute F29 Costochondritis Resolved M94.0 On deep vein thrombosis (DVT) prophylaxis Acute Z79.899 Osteoporosis Chronic M81.0 Dysphagia Acute R13.10 Dysarthria Acute R47.1 Parkinsonism Acute G20 Muscle weakness Acute M62.81 Aspiration into airway Resolved T17.908A Pulmonary fibrosis Acute J84.10 Right conjunctivitis Acute H10.9 Ear itching Acute L29.9 Non-cardiac chest pain Resolved R07.89 Pulmonary embolism Chronic I26.99 Family history of stroke Acute Z82.3 Family history of DVT Acute Z82.49 Family history of pulmonary embolism Acute Z82.49 Facial droop Chronic R29.810 Atypical chest pain Acute R07.89 Hypoxia Acute R09.02 Internal derangement of left knee Acute M23.92 Left knee pain Acute M25.562 Abnormal auditory perception Acute H93.299 Conjunctivitis Acute H10.9 Oropharyngeal dysphagia Acute R13.12 TMJ dysfunction Acute M26.609 Auditory hallucination Chronic R44.0 Diabetes type 2, controlled Chronic E11.9 Intermittent diarrhea Acute 04/06/16 R19.7 Hyperlipidemia Acute 11/16/11 E78.5 Headache Acute 06/26/13 R51 Chest pain Acute 06/26/13 R07.9 Anxiety Acute 08/04/12 F41.9 Anger reaction Acute 10/17/16 R45.4 Allergic rhinitis Acute 11/16/11 J30.9 Adjustment disorder, unspecified Acute 10/30/16 F43.20 Medical History Medical History (Updated 06/23/25 @ 18:59 by Anibal Cade MD) Thickened liquid diet recommended Per caregiver/PCPnote Ingrown toenail Pre-diabetes Colon cancer screening Chest pain Pulmonary embolism Chest pain Colon cancer screening declined Mammogram declined Impacted cerumen of both ears Colonoscopy refused High blood cholesterol Osteopenia (11/16/11) DEXA 10/2011 spine T-1.2, hip -1.5, forearm -2.3 08/2015 spine T-0.9, hip -1.6: FRAX 9.2/1.0% Impaired fasting glucose (09/24/12) Ear itch (04/06/16) 03/09/19 ENT Renee. Dermatitis both ear canals Dysuria Pulmonary nodule 1 cm or greater in diameter Lung nodule < 6cm on CT Acute pulmonary embolism Migraine Hyperlipemia Anxiety PTSD (post-traumatic stress disorder) Pt. caregiver is unaware of any triggers at this time Surgical History Surgical History History of hysterectomy Appendectomy Tobacco Smoking/Tobacco Use Status: Never Passive smoking exposure: No Alcohol Alcohol Intake: never Substance Use Substance use: Never Substance use type: does not use Vital Signs and Lab Results Vital Signs Most Recent Vital Signs in EMR: Temp Pulse Resp BP Pulse Ox 36.3 C L 88 20 138/65 99 06/25/25 11:00 06/25/25 11:00 06/25/25 11:00 06/25/25 11:00 06/25/25 11:00 Lab Results Complete Metabolic Panel: Sodium, (136-145) 144 mmol/L 06/07/25, 15:40 Potassium, (3.5-5.1) 3.8 mmol/L 06/07/25, 15:40 Chloride, (98-107) 106 mmol/L 06/07/25, 15:40 Carbon Dioxide, (21.0-32.0) 29.4 mmol/L 06/07/25, 15:40 BUN, (7-18) 15 mg/dL 06/07/25, 15:40 Creatinine, (0.55-1.02) 0.7 mg/dL 06/07/25, 15:40 Est GFR (CKD-EPI 2020), (mL/min/1.73m2) 90.70 06/07/25, 15:40 Calcium, (8.5-10.1) 9.3 mg/dL 06/07/25, 15:40 Glucose, (74-106) 101 mg/dL 06/07/25, 15:40 Hemoglobin A1c, (<5.7) 5.8 % H 06/07/25, 15:40 Anesthesia Assessment and Plan Anesthesia History Personal History: No History of General Anesthesia Family History: Family History Unknown Exercise Tolerance Exercise Tolerance: Metabolic Equivalents>4 Cardiac & Pulmonary Exam Cardiac Exam: Normal S1/S2 Heart Sounds Pulmonary Exam: Clear Bilateral Breath Sounds Implantable Cardiac Device Does patient have a Pacemaker or an ICD?: No Airway Exam Known Difficult Airway: No Mallampati Class: 3 Mouth Opening: Narrow (< 3cm) Thyromental Distance: Less than 3 cm Neck Range of Motion: Limited ROM Neck Circumference: Normal Teeth Condition: Generalized Poor Dentition ASA Classification ASA Score: ASA 3 Emergency Case?: No NPO Status NPO Status: NPO Clears >2 hours, Solids >8 hours Anesthesia Plan Resuscitation Status: Full Code Anesthesia Technique: MAC Anesthesia Airway Planned: Natural Airway Monitors Used: Standard Monitors Preoperative Comments:: 74 yo female for cataract. Sig PMHx: angina (nitro patch), PE/DVT, aspiration history, DM2, depression, parkinsonism. ECG: sinus. ECHO: LVEF 55%, no sig valve issues. Stress: ECG normal. EF 54%, no sig perfusion defect. PFT: restrictive spirometry, air trapping, limited testing due to pt comprehension/participation. Was booked as GA, but found in [facility] alert/oriented, knows why she is here, able to tell us what medications that she takes and also about her health history. She feels that she can lay still with some IV sedation.
[2025-06-25 09:33] VITALS: BMI 21.9
[2025-06-25 11:00] VITALS: BP 138/65; PULSE 88; RESP 20; TEMP 36.3; O2SAT 99
[2025-06-25] MEDS: Tropicam./Phenyleph. (1/2.5%) 5 ML BTL OS ×3 (11:24→11:29)
[2025-06-25] MEDS: Lactated Ringers 1,000 ML 80 ML IV (11:29)
[2025-06-25] MEDS: Povidone-Iodine Ophth 30 ML BTL (11:52)
[2025-06-25] MEDS: Phenylephrine/Lidocaine (15/10) MG/ML 1 ML VIAL (11:57)
[2025-06-25] MEDS: Duovisc Viscoelastic System EACH 1 EACH (11:57)
[2025-06-25] MEDS: Lidocaine 1% Pres-Free 5 ML VIAL (11:57)
[2025-06-25] MEDS: Balanced Salt Soln.-PLUS 500 ML BAG OP (11:58)
[2025-06-25] MEDS: Tetracaine 0.5% 4 ML BTL OS (11:58)
[2025-06-25] MEDS: Moxifloxacin-PF 1 MG/ML VIAL (12:09)
[2025-06-25] MEDS: Prednisolone 1%, Moxifloxacin 0.5%, Bromfenac 0.09% 5.6ML BTL OS (12:09)
[2025-06-25 12:17] VITALS: BP 106/84; PULSE 80; RESP 18; TEMP 36.4; O2SAT 96
--- NOTE | 2025-06-25 12:23 | W.PM.DSUDISC ---
Date of service: 06/25/25 Discharge Plan Disposition Patient Disposition: Home Discharge Details Attending Provider: Anibal Cade Primary Care Provider: Alina Wynn Home Meds and New Rx's Prescriptions: No Action diazepam 2 mg tablet 2 mg PO BID PRN (Reason: anxiety) Qty: 60 3RF omeprazole 20 mg capsule,delayed release(DR/EC) 20 mg PO DAILY Qty: 90 4RF carbidopa-levodopa 25-100 mg tablet 1 tab PO TID Qty: 270 3RF Rx Instructions: take at am, noon, and 4pm ketoconazole 2 % cream 1 applic topical DAILY Qty: 120 6RF Rx Instructions: Apply to toenails once daily quetiapine [Seroquel] 50 mg tablet 50 mg PO DAILY PRN (Reason: acute agiaton) Qty: 30 2RF aripiprazole [Abilify] 20 mg tablet 20 mg PO DAILY Qty: 84 1RF mirtazapine 30 mg tablet 30 mg PO QHS Qty: 84 1RF sertraline 50 mg tablet 50 mg PO DAILY Qty: 28 1RF (DME) lancets Misc See Rx Instructions .ROUTE .MEDSUPPLY Qty: 100 6RF Rx Instructions: As directed to check blood glucose daily. No insulin. Dispense covered brand. cetirizine 10 mg tablet See Rx Instructions .ROUTE .COMPLEX Qty: 28 12RF Dose Instruction: TAKE 1 TABLET BY MOUTH DAILY FOR ALLERGY SYMPTOMS Rx Instructions: TAKE 1 TABLET BY MOUTH DAILY FOR ALLERGY SYMPTOMS Eliquis 2.5 mg tablet See Rx Instructions .ROUTE .COMPLEX Qty: 56 12RF Dose Instruction: TAKE 1 TABLET BY MOUTH TWICE A DAY Rx Instructions: TAKE 1 TABLET BY MOUTH TWICE A DAY atorvastatin 20 mg tablet 20 mg PO QHS Qty: 90 3RF metformin 500 mg tablet 500 mg PO BID Qty: 180 3RF Rx Instructions: Dose correction quetiapine [Seroquel XR] 200 mg tablet extended release 24 hr 200 mg PO QHS Qty: 28 3RF nystatin 100,000 unit/gram cream 1 applic topical TID Qty: 60 6RF (DME) FreeStyle Lite Strips Strip See Rx Instructions .ROUTE .COMPLEX Qty: 100 6RF Dose Instruction: USE TO CHECK BLOOD SUGAR DAILY TO KEEP A1C BELOW 7 Rx Instructions: Check blood sugar once a day. DX: E11.9. KEEP A1C BELOW 7 (DME) lancets [FreeStyle Lancets] 28 gauge misc See Rx Instructions .ROUTE .COMPLEX Qty: 100 6RF Dose Instruction: USE TO CHECK BLOOD SUGAR DAILY TO KEEP A1C BELOW 7 Rx Instructions: CHECK BLOOD SUGAR ONCE A DAY. DX: E11.9 KEEP A1C BELOW 7 nitroglycerin [Nitro-Bid] 2 % ointment 1 inch transdermal BID Qty: 30 0RF Rx Instructions: administer 2 doses/day (approx. 6 hrs apart); remove for 10-12 hrs per 24 hours Please send 2 tubes (one for home and one for [place]) cholecalciferol (vitamin D3) 25 mcg (1,000 unit) tablet 2,000 unit PO DAILY Qty: 30 12RF quetiapine [Seroquel XR] 50 mg tablet extended release 24 hr 100 mg PO .COMPLEX Qty: 168 1RF Rx Instructions: 100 mg orally each morning; (DME) blood-glucose meter [FreeStyle Lite Meter] Kit See Rx Instructions .Route Qty: 1 0RF Rx Instructions: Check blood sugar daily DX:E11.9 Type II DM without insulin use. Keep A1c below 7% REPLACEMENT CURRENT ONE DOES NOT WORK Discharge Instructions Stand Alone Forms: DSU Post-Op CataractLianet (DSU) Discharge Orders Discharge Orders: Discharge Order (Routine); Ordered 06/25/25 Ordered By: Anibal Cade DS: Diagnosis Discharge Diagnosis (1) Posterior subcapsular age-related cataract of left eye: Status: Resolved (2) Cortical age-related cataract, left eye: Status: Resolved
--- NOTE | 2025-06-25 12:26 | ROE_ITS ---
Operative Note Operative Note PRE-OP DIAGNOSIS: Nuclear/cortical/posterior subcapsular cataract, left eye POST-OP DIAGNOSIS: same PROCEDURE: Cataract extraction using phacoemulsification with intraocular lens implant, left eye SURGEON: Anibal Cade ANESTHESIA TYPE: Local By Surgeon and MAC Refer to Anesthesia Record PATHOLOGY: none sent COMPLICATIONS: None Patient was transported to: same day Patient's condition: stable Implants: Graham Clareon [id number] Indications: Progressive decreased vision due to cataract, left eye Procedure Description: CATARACT SURGERY OPERATIVE REPORT PREOPERATIVE DIAGNOSIS: Nuclear/cortical/posterior subcapsular cataract, left eye POSTOPERATIVE DIAGNOSIS: Same OPERATION: Cataract extraction using phacoemulsification with posterior chamber intraocular lens implant, left eye. IOL: IOL Mica Layer/Model: Graham Clareon [id number] IOL Power: + 21.0 diopters IOL Serial Number: [id number] Optic Diameter: 6.0mm Haptic/Overall Diameter: 13.0mm PHACO INFO: Graham Critical Signal Technologiesurion Vision System with OZil and Active Fluidics Cumulative Dispersed Energy (CDE): 6.44 seconds SURGEON: Anibal Cade MD, [facility] ANESTHESIA: Monitored Anesthesia Care (MAC), with local sub-tenon's anesthetic infiltration COMPLICATIONS: None SPECIMENS: None INDICATIONS FOR PROCEDURE: The patient is a 74-year-old lady with history of diminished visual acuity in her left eye secondary to the development of nuclear/cortical/posterior subcapsular cataract. She states he undergone cataract surgery in the right eye 8 years ago and is doing well postoperatively. She now presents for cataract surgery in the left eye. See office notes for detailed information. PROCEDURE: The correct surgical eye was identified and marked as the left eye and the pupil was dilated in the preoperative area using mydriatics and cycloplegics. The dilated pupil size was 7.0 mm. The patient was brought to the operating room where cardiopulmonary monitoring was instituted and surgical time-out was performed, confirming the correct operative eye and IOL power. Intravenous sedation was given, Versed 1.0 mg IV. Topical anesthesia was administered and ophthalmic povidone-iodine 5% was instilled into the conjunctival fornices. The pavithra-ocular area was prepped with Betadine 10% solution and draped in the usual sterile fashion for intraocular surgery, including an aperture drape. A Tegaderm transparent film dressing was cut in half and used to cover the lashes and lid margins. Care was taken to sequester the lashes and lid margins under the Tegaderm dressing. A lid speculum was placed between the lids of the operative eye and the Graham LuxOR Revalia operating microscope was maneuvered into position. Maylin scissors were then used to make a conjunctival buttonhole approximately 6mm posterior to the limbus in the inferonasal quadrant. Blunt dissection was carried out to expose bare sclera, and a blunt-tipped sub-tenon?s anesthesia cannula was introduced and passed posteriorly along the globe where non- preserved plain lidocaine was injected into posterior sub-Tenon?s space. A sideport knife was used to make a paracentesis port. Intraocular phenylephrine/lidocaine was injected into the anterior chamber. The anterior chamber was then filled with viscoelastic. A keratome knife was used construct a two-plane clear corneal tunnel extending 2.0mm into clear cornea. A flap was raised on the anterior capsule and capsulorhexis forceps were used to complete a continuous curvilinear capsulorhexis of 5.0 mm. Balanced salt solution was then used to perform cortical cleaving hydrodissection and nuclear hydrodelineation until the lens could be freely rotated within the capsular bag. The lens nucleus was then disassembled and removed within the capsular bag and iris plane using phacoemulsification. Residual cortical material was removed using the irrigation/aspiration handpiece. The posterior capsule was carefully polished to remove as much residual lens epithelial cells as safely possible. The capsular bag was then inflated and the anterior chamber deepened with viscoelastic. The lens implant described above was inserted into the capsular bag using the Graham Autonome Injector. A Kuglen hook was used to dial the IOL into position. Residual viscoelastic was then removed first from posterior to the IOL, then from the anterior chamber using the I/A handpiece. The lens implant was noted to center nicely within the capsular bag. The incisions were stromally hydrated, and the anterior chamber was reformed using BSS. Then 0.5cc of moxifloxacin 1.0mg/ml were injected into the capsular bag and anterior chamber. The incisions were checked with a Weck spear and found to be secure. Several drops of ophthalmic povidone-iodine 5% were then applied to the eye followed by two drops of combination steroid/NSAID/antibiotic solution. The drapes were remov ed and a clear plastic protective eye shield was placed over the eye. The patient was then returned to [facility] Day Surgery in stable condition. Date of Procedure: 06/25/25
[2025-06-25 12:45] VITALS: BP 127/86; PULSE 78; RESP 18; TEMP 36.2; O2SAT 98
--- NOTE | 2025-06-25 13:01 | W.ANESPOSTOP ---
Postoperative Evaluation Date, Time and Location Date Performed: 06/25/25 Time Performed: 13:01 Patient Location: Day Surgery Unit Vital Signs Most Recent Imported Vital Signs: Most Recent Vital Signs Temp Pulse Resp BP Pulse Ox 36.2 C L 78 18 127/86 98 06/25/25 12:45 06/25/25 12:45 06/25/25 12:45 06/25/25 12:45 06/25/25 12:45 Pain Score Most Recent Pain Score: Most Recent Pain Score Pain Level 0 06/25/25 12:45 Assessment Mental Status: Awake (Alert & Oriented to Patient Baseline) Airway and Respiratory Function: Patent airway with normal (patient baseline) respiratory exam Cardiovascular Function: Hemodynamically Stable Hydration Status: Adequately Hydrated Nausea & Vomiting: No Nausea or Vomiting Pain: Pt. Denies Any Pain Peripheral Nerve Block: Patient did not receive a nerve block
== END 2025-06-25 13:03 | disposition home or self-care (01) ==
LOC: SUR 10:56
PROVIDERS: PCP Nurse Practitioner Family; Visit Provider Ophthalmology
PROC: (CPT 66984; principal; 2025-06-25 13:00)
DX: H25.012 Cortical age-related cataract, left eye (principal); H25.042 Posterior subcapsular polar age-related cataract, left eye; Z98.41 Cataract extraction status, right eye
CPT/HCPCS: 66984; 00123; V2632; J2003; J2250; J2405; J2704

== ENCOUNTER 2025-08-24 03:27 | Outpatient (CLI) | payer MEDICARE, MEDICAID, SELFPAY ==
[2025-08-24 14:41] LABS: ALT 25 U/L (14-59); AST 21 U/L (15-37); Albumin 3.7 g/dL (3.4-5.0); Alkaline Phosphatase 115 U/L (46-116); Anion Gap 11.3 mmol/L (3-11); BUN 18 mg/dL (7-18); Bilirubin, Total 0.2 mg/dL (0.2-1.0); CO2 27.7 mmol/L (21.0-32.0); Calcium 9.4 mg/dL (8.5-10.1); Chloride 104 mmol/L (98-107); Estimated GFR 90.14 (mL/min/1.73m2); Glucose 97 mg/dL (74-106); Potassium 3.8 mmol/L (3.5-5.1); Sodium 143 mmol/L (136-145); Total Protein 7.7 g/dL (6.4-8.2)
== END 2025-08-24 03:28 | disposition home or self-care (01) ==
PROVIDERS: PCP Nurse Practitioner Family; Visit Provider Family Medicine
DX: B35.1 Tinea unguium (principal)
CPT/HCPCS: 11056; 11720; 36415; 80053

== ENCOUNTER → 2025-09-06 13:02 | Outpatient (BNVA) | payer MEDICARE, MEDICAID, SELFPAY | PROVIDERS: PCP Nurse Practitioner Family; Referring Provider Nurse Practitioner Family; Visit Provider Psychiatry & Neurology Neurology | DX: G20.C Parkinsonism, unspecified (principal); R47.1 Dysarthria and anarthria; R13.10 Dysphagia, unspecified; R41.3 Other amnesia | CPT/HCPCS: 99213 ==